=== PATIENT | female | born 1960 | race Caucasian/White ===

== ENCOUNTER 2018-02-02 03:47 | Observation (INO) ==
[2018-02-02 04:14] LABS: ABG Base Excess 1.2 mmol/L (-2.4-2.3); ABG Oxygen Saturation 83 % (90-100); ABG PCO2 42.7 mmhg (35.0-45.0); ABG TCO2 27.3 mmhg (23-27)
[2018-02-02 04:17] LABS: ABG PO2 43.3 mmhg (80-100); Allen's Test Acceptable; Oxygen ROOM AIR %
[2018-02-02 04:30] LABS: Basophils # 0.1 K/mm3 (0-0.2); Basophils % 0.4 % (0.1-2.0); Eosinophils # 0.4 K/mm3 (0.0-0.4); Eosinophils % 1.8 % (0.1-12.0); Hematocrit 47.9 % (37.0-47.0); Hemoglobin 15.1 g/dL (12.2-16.2); Lymphocytes # 2.1 K/mm3 (0.7-4.5); Lymphocytes % 10.4 K/mm3 (10-50); Mean Corpuscular HGB Conc 31.5 g/dL (31.8-35.4); Mean Corpuscular Volume 101.5 fl (81-99); Mean Platelet Volume 7.5 fl (7.4-10.4); Monocytes # 0.8 K/mm3 (0.1-1.0); Monocytes % 3.8 % (1.7-9.3); Neutrophils # 16.4 K/mm3 (1.8-7.8); Neutrophils % 83.5 % (37.0-80.0); Platelet Count 415 K/mm3 (142-424); Red Blood Count 4.72 M/mm3 (4.20-5.40); Red Cell Distribution Width 14.1 % (11.5-17.5); White Blood Count 19.7 K/mm3 (4.8-10.8)
[2018-02-02 04:56] LABS: Lymphocytes % 8 % (10-50); Macrocytosis 2+; Monocytes % 5 % (2-9); Neutrophils % 76 % (42-76); Rouleaux 1+; Total Cells Counted 100
[2018-02-02 05:16] LABS: Alanine Aminotransferase 29 U/L (12-78); Albumin Level 2.8 gm/dL (3.4-5.0); Albumin/Globulin Ratio 0.7 (1.1-1.8); Alkaline Phosphatase 141 U/L (46-116); Anion Gap 8.8 mEq/L (5-15); Aspartate Amino Transferase 17 U/L (15-37); Bilirubin,Total 0.5 mg/dL (0.2-1.0); Blood Urea Nitrogen 10 mg/dL (7-18); Calcium 8.5 mg/dL (8.5-10.1); Carbon Dioxide 29 mmol/L (21.0-32.0); Chloride 101 mmol/L (98-107); Creatine Kinase 42 U/L (26-192); Globulin 4.3 gm/dl (1.3-3.2); Glucose 117 mg/dL (74-106); Potassium 3.8 mmoL/L (3.5-5.1); Sodium 135 mmol/L (136-145); Total Protein,Serum 7.1 gm/dL (6.4-8.2)
--- NOTE | 2018-02-02 05:48 | Emergency Department Note ---
ED Disposition Clinical Impression: Acute exacerbation of chronic obstructive airways disease Community acquired pneumonia Qualifiers: Laterality: left Lung location: lower lobe of lung Qualified Code(s): J18.1 - Lobar pneumonia, unspecified organism Disposition: Admitted as Observation Condition on Discharge: Serious Referrals: Solo Vargas MD [Primary Care Provider] - - Critical Care Critical Care Time: No Attestation: On 02/02/18, the high probability of a clinically significant, sudden or life threatening deterioration of the following system(s) required my full and direct attention, intervention and personal management. The time I documented below is in addition to time spent performing reported procedures but includes the following listed in this critical care notation. Medical Decision Making - Medical Records Medical records reviewed: Yes: I reviewed the patient's medical records. - Nick Inquiry Pt receiving controlled substance: No Vital Signs: 02/02/18 03:49 02/02/18 03:54 02/02/18 04:06 Temperature 100.0 F H 98.7 F Temperature Source Rectal Oral Pulse Rate Pulse Rate [Right Radial] 132 H Respiratory Rate 28 H Blood Pressure [Right Arm] 152/96 Blood Pressure Mean [Right Arm] 114 Blood Pressure Source [Right Arm] Blood Pressure Position [Right Arm] 02 Sat by Pulse Oximetry 88 L 86 L 86 L Oxygen Delivery Method Nasal Cannula Room Air Oxygen Flow Rate (LPM) 2 2 02/02/18 04:15 02/02/18 04:19 02/02/18 04:29 Temperature 100.0 F H Temperature Source Rectal Pulse Rate 108 H 118 H Pulse Rate [Right Radial] Respiratory Rate Blood Pressure [Right Arm] Blood Pressure Mean [Right Arm] Blood Pressure Source [Right Arm] Blood Pressure Position [Right Arm] 02 Sat by Pulse Oximetry Oxygen Delivery Method Oxygen Flow Rate (LPM) 02/02/18 05:00 02/02/18 05:27 Temperature 98.9 F Temperature Source Rectal Pulse Rate Pulse Rate [Right Radial] 106 H 108 H Respiratory Rate 22 22 Blood Pressure [Right Arm] 119/78 136/62 Blood Pressure Mean [Right Arm] 91 86 Blood Pressure Source [Right Arm] Automatic Cuff Automatic Cuff Blood Pressure Position [Right Arm] Sitting Sitting 02 Sat by Pulse Oximetry 97 98 Oxygen Delivery Method Nasal Cannula Nasal Cannula Oxygen Flow Rate (LPM) 3 3 - Lab Data Lab results reviewed: Yes: I reviewed the patient's lab results. Lab Results 02/02/18 04:07: Specimen Source Right radial, O2 % Room air, ABG pH 7.40, ABG pCO2 42.7, ABG pO2 43.3 L, ABG HCO3 26.0, ABG Total CO2 27.3 H, ABG O2 Saturation 83 L*, ABG Base Excess 1.2, [place] Test Acceptable 02/02/18 04:10: WBC 19.7 H, RBC 4.72, Hgb 15.1, Hct 47.9 H, MCV 101.5 H, MCH 32.0 H, MCHC 31.5 L, RDW 14.1, Plt Count 415, MPV 7.5, Neut % (Auto) 83.5 H, Lymph % (Auto) 10.4, [place] % (Auto) 3.8, Eos % (Auto) 1.8, Baso % (Auto) 0.4, Neut # (Auto) 16.4 H, Lymph # (Auto) 2.1, [place] # (Auto) 0.8, Eos # (Auto) 0.4, Baso # (Auto) 0.1, Total Counted 100, Neutrophils % (Manual) 76, Band [place] trophils % 11.0 H, Lymphocytes % (Manual) 8 L, Monocytes % (Manual) 5, Platelet Estimate Normal, Macrocytosis 2+, Rouleaux 1+ 02/02/18 04:10: Lactate 1.2 02/02/18 04:10: Influenza Type A Ag Negative, Influenza Type B Ag Negative 02/02/18 04:40: Sodium 135 L, Potassium 3.8, Chloride 101, Carbon Dioxide 29, Anion Gap 8.8, BUN 10, Creatinine 0.67, Estimated Creat Clear 60, Estimated GFR 91, Est GFR ( Amer) 110, Glucose 117 H, Calcium 8.5, Total Bilirubin 0.5, AST 17, ALT 29, Alkaline Phosphatase 141 H, Total Creatine Kinase 42, CK-MB (CK- 2) < 0.5, CK-MB (CK-2) Rel Index 1.2, Troponin I < 0.02, Total Protein 7.1, A lbumin 2.8 L, Globulin 4.3 H, Albumin/Globulin Ratio 0.7 L Result diagrams: 02/02/18 04:10 02/02/18 04:40 Orders (Tests/Meds): ED MEDICATIONS Generic Name Dose Route Start Last Admin Trade Name Freq PRN Reason Stop Dose Admin Sodium Chloride 3 ml 02/02/18 04:00 Sodium Chloride 3% 15ml [facility] 03/04/18 03:59 ONCE PRN INDUCE SPUTUM COLLECTION Discontinued Medications Generic Name Dose Route Start Last Admin Trade Name Freq PRN Reason Stop Dose Admin Albuterol/Ipratropium 3 ml 02/02/18 04:00 02/02/18 04:18 Duoneb 3ml [facility] 02/02/18 04:01 3 ml ONCE ONE Administration Sodium Chloride 1,000 mls @ 999 mls/hr 02/02/18 04:30 02/02/18 04:25 Sod Chlor 0.9% 1000ml Bag IV 02/02/18 05:30 999 mls/hr .Q1H1M PRAVIN Administration Ibuprofen 600 mg 02/02/18 04:24 02/02/18 04:25 Motrin 600mg Tablet PO 02/02/18 04:25 600 mg ONCE ONE Administration Methylprednisolone Sodium Succinate 125 mg 02/02/18 04:00 02/02/18 04:15 Solu-Medrol 125mg/2ml Vial IV 02/02/18 04:01 125 mg ONCE ONE Administration ORDERS Category Date Time Status XR chest portable Stat Exams 02/02/18 03:59 Taken Blood Culture Stat Micro 02/02/18 04:07 Ordered Sputum Culture & Gram Stain Stat Micro 02/02/18 04:00 Ordered Arterial Blood Gas Stat RT 02/02/18 04:07 Ordered - Radiology Data #1 Image(s): Chest Image Reviewed: Yes I reviewed the patient's radiology image Preliminary Findings: Abnormal (copd and changes lt base ) - ECG Data Tracing #1 I reviewed this ECG and interpreted as documented below: Arrhythmias present: sinus tach Ischemic changes: non-specific ST-T wave changes ECG compared to prior tracings: there are no significant changes - Physician Consults Physician Consulted: júnior Reason -: Admission Resp/SOB HPI - General Chief Complaint: Shortness of Breath/Dyspnea Stated Complaint: COPD, DIfficulty Breathing Time Seen by Provider: 02/02/18 05:00 Mode of Arrival: Family Vehicle Source of Information: Patient, Spouse, Medical Record Limitations: No Limitations Description of Symptoms (Recalled from ER Triage Doc. by RN): pt states she has had a cold for approx 2 weeks. pt states she has copd and is on home o2 at night at 2 lbnc. pt presents tonight c/o severe shortness of breath. pt states she has been running a fever at home. - History of Present Illness wf with progressive sob with hx of copd and has fever and prod sputum and presents with inc sx - reports has had this over the last week - no hemoptysis - MD Complaint: shortness of breath Onset (ago): day(s) Severity: moderate Known history of: COPD Associated symptoms: denies other symptoms Treatment prior to arrival: oxygen - Related Data Home oxygen amount: 2 liters Home Medications Medication Instructions Recorded Confirmed Albuterol Sulfate [Albuterol HFA 1 - 2 puffs IH Q4-6H PRN 02/02/18 02/02/18 Inhaler] Budesonide/Formoterol Fumarate 10.2 gm IH DAILY 02/02/18 02/02/18 [Symbicort 160-4.5 Mcg Inhaler] Cetirizine HCl [Zyrtec] 10 mg PO DAILY 02/02/18 02/02/18 Meloxicam 15 mg PO DAILY 02/02/18 02/02/18 Montelukast Sodium [Montelukast 10 mg PO DAILY 02/02/18 02/02/18 10mg Tab] Omeprazole [Omeprazole 20mg 20 mg PO DAILY 02/02/18 02/02/18 Capsule] Allergies Allergy/AdvReac Type Severity Reaction Status Date / Time erythromycin base Allergy Intermediate I-RASH Verified 02/02/18 03:59 [ERYTHROMYCIN BASE] [facility] History I have reviewed the patient's past medical history: Yes Medical History: Denies:: Cancer, Diabetes Mellitus Type 1, Diabetes Mellitus Type 2, MRSA Amputation: No Fractures: No - Social History Smoking Status: Current every day smoker Alcohol Intake: never - Psychiatric History Expresses thoughts of harming self/others: None Suicide Plan Description: No Plan ROS Obtained: Yes All systems reviewed & no additional complaints - Constitutional Constitutional: Reports fever(s), Reports weakness - Eyes Eyes: Denies change in vision - ENT Ears, Nose, Mouth, and Throat: Denies sore throat - Cardiovascular Cardiovascular: Denies chest pain, Reports dyspnea - Respiratory Respiratory: Yes as per HPI, Yes cough, Yes dyspnea, No coughing up blood - Gastrointestinal Gastrointestingal: Denies: abdominal pain - Genitourinary Female Genitourinary: Denies hematuria - Musculoskeletal Musculoskeletal: Denies joint pain, Denies joint swelling - Integumentary/Breasts Skin/Breast: Denies rash - Neurologic Neurologic: Denies seizure-like activity Physical Exam - General General appearance: alert, in no apparent distress, cachectic, other (leaning forward - tripod position ) - Head Head exam: atraumatic - Eye Eye exam: Present: PERRL, EOMI. Absent: scleral icterus - ENT ENT exam: Present: mucous membranes dry - Neck Neck exam: Present: trachea midline - Respiratory Respiratory exam: Present: wheezes, other (dec bs bilat ). Absent: respiratory distress - Cardiovascular Cardiovascular exam: Present: regular rate, systolic murmur, +S4 - Abdominal Exam Abdominal exam: Present: soft - Extremities Exam Extremities exam: Absent: calf tenderness - Neurological Exam Neurological exam: Present: alert, oriented X3, CN II-XII intact - Psychiatric Psychiatric exam: Present: normal affect - Skin Skin exam: Absent: rash
--- NOTE | 2018-02-02 07:51 | History & Physical Report ---
*Admission Date: 02/01/18 *Chief complaint: Worsening shortness of breath and productive cough *History of present illness: 57-year-old female with history of COPD on 2 L oxygen at baseline who presents with worsening cough, congestion, fevers over the past 2 weeks. He presented last night to the ER due to severe worsening of shortness of breath, increased sputum production, and subjective fever at home. States when she gets like that she has to come in and get antibiotics. Has hemoptysis, syncope, chest pain, palpitations, nausea or vomiting. Cup in the emergency room significant for leukocytosis, tachycardia, chest x-ray with concern for left lower lobe infiltrate. [facility] History I have reviewed the patient's past medical history: Yes Medical History: Reports:: Palpitations Denies:: Cancer, Diabetes Mellitus Type 1, Diabetes Mellitus Type 2, MRSA Other Surgeries: Yes: Hysterectomy-Total, Splenectomy (X2) Amputation: No Fractures: No - *Social History Educational Level: Attended High School Smoking Status: Current every day smoker Tobacco Type: cigarettes # Packs/Day (cigarettes): 1 #Yrs smoked (if former smoker): 45 Alcohol Intake: never Occupational Status: employed Housing: house Household Members: spouse, family - Psychiatric History Expresses thoughts of harming self/others: None Suicide Plan Description: No Plan *Family Hx:: Anemia, Cancer, Hyperlipidemia, Hypertension Review of Systems - Review of Systems Review of systems:: pertinent systems reviewed and negative unless documented below - *Neurologic Reports weakness, Denies seizure-like activity Meds Home Medications Medication Instructions Recorded Confirmed Type Albuterol Sulfate [Albuterol HFA 1 - 2 puffs IH Q4-6H PRN 02/02/18 02/02/18 History Inhaler] Cetirizine HCl [Zyrtec] 10 mg PO DAILY 02/02/18 02/02/18 History Meloxicam 15 mg PO DAILY 02/02/18 02/02/18 History Montelukast Sodium [Montelukast 10 mg PO HS 02/02/18 02/02/18 History 10mg Tab] Omeprazole [Omeprazole 20mg 20 mg PO DAILY 02/02/18 02/02/18 History Capsule] Tiotropium Br/Olodaterol HCl 2 inh IH DAILY 02/02/18 02/02/18 History [Stiolto Respimat Inhal [place]] Allergies Allergy/AdvReac Type Severity Reaction Status Date / Time erythromycin base Allergy Intermediate I-RASH Verified 02/02/18 03:59 [ERYTHROMYCIN BASE] Exam Vital signs and Labs for Last 24 Hours: Temp Pulse Resp BP Pulse Ox 98.4 F 115 H 22 140/80 85 L 02/02/18 06:31 02/02/18 06:31 02/02/18 06:31 02/02/18 06:31 02/02/18 06:31 Laboratory Results - last 24 hr 02/02/18 04:07: Specimen Source Right radial, O2 % Room air, ABG pH 7.40, ABG pCO2 42.7, ABG pO2 43.3 L, ABG HCO3 26.0, ABG Total CO2 27.3 H, ABG O2 Saturation 83 L*, ABG Base Excess 1.2, [place] Test Acceptable 02/02/18 04:10: WBC 19.7 H, RBC 4.72, Hgb 15.1, Hct 47.9 H, MCV 101.5 H, MCH 32.0 H, MCHC 31.5 L, RDW 14.1, Plt Count 415, MPV 7.5, Neut % (Auto) 83.5 H, Lymph % (Auto) 10.4, [place] % (Auto) 3.8, Eos % (Auto) 1.8, Baso % (Auto) 0.4, Neut # (Auto) 16.4 H, Lymph # (Auto) 2.1, [place] # (Auto) 0.8, Eos # (Auto) 0.4, Baso # (Auto) 0.1, Total Counted 100, Neutrophils % (Manual) 76, Band Neutrophils % 11.0 H, Lymphocytes % (Manual) 8 L, Monocytes % (Manual) 5, Platelet Estimate Normal, Macrocytosis 2+, Rouleaux 1+ 02/02/18 04:10: Lactate 1.2 02/02/18 04:10: Influenza Type A Ag Negative, Influenza Type B Ag Negative 02/02/18 04:40: Sodium 135 L, Potassium 3.8, Chloride 101, Carbon Dioxide 29, Anion Gap 8.8, BUN 10, Creatinine 0.67, Estimated Creat Clear 60, Estimated GFR 91, Est GFR ( Amer) 110, Glucose 117 H, Calcium 8.5, Total Bilirubin 0.5, AST 17, ALT 29, Alkaline Phosphatase 141 H, Total Creatine Kinase 42, CK-MB (CK- 2) < 0.5, CK-MB (CK-2) Rel Index 1.2, Troponin I < 0.02, Total Protein 7.1, Albumin 2.8 L, Globulin 4.3 H, Albumin/Globulin Ratio 0.7 L I & O for Last 24 hours: Intake & Output 01/30/18 01/31/18 02/01/18 02/02/18 23:59 23:59 23:59 23:59 Intake Total 1000 / 1000 Balance 1000 / 1000 Weight 41.759 kg Microbiology Reports for the Last 24 Hours: Microbiology 02/02/18 04:00 Sputum - Expectorated Sputum Gram Stain - Final - Constitutional mild distress, cachectic - *Routine HEENT Exam Head: Present: atraumatic Eye: Present: EOMI, PERRL ENT: Present: mucous membranes moist Comments: Bitemporal wasting - *Routine Neck Exam Present: supple, full ROM. Absent: JVD, lymphadenopathy - Routine Chest/Breast/Axilla Exam Comments: Barrel chested - *Routine Respiratory Exam Present: accessory muscle use, prolonged expiratory phase, wheezes, crackles (Left lower lobe), diminished air movement. Absent: CTA bilaterally - *Routine Cardiovascular Exam Present: RRR, Normal S1, Normal S2. Absent: murmur - *Routine Abdominal Exam Present: soft, normoactive bowel sounds. Absent: tenderness - *Routine Rectal Exam Patient deferred: visual exam - *Routine Exam Patient deferred: external exam - *Routine Extremities Exam Absent: cyanosis, clubbing, edema - *Routine Skin Exam Present: intact. Absent: cyanosis, erythema - *Routine Neurological Exam Present: alert, oriented X3, CN II-XII intact Assessment and Plan (1) Sepsis Current visit: Yes Status: Acute Qualifiers: Sepsis type: sepsis due to unspecified organism Qualified Code(s): A41.9 - Sepsis, unspecified organism Category: Medical Code(s): A41.9 - Sepsis, unspecified organism Sepsis criteria with tachycardia greater than 90 bpm, leukocytosis, suspected source with left lower lobe pneumonia. -She had on antibiotics per sepsis protocol -No signs of tissue hypoperfusion or shock at this time (2) Acute exacerbation of chronic obstructive airways disease Current visit: Yes Status: Acute Category: Medical Code(s): J44.1 - Chronic obstructive pulmonary disease with (acute) exacerbation Continue Levaquin -Continue steroid -Continue nebulizers as ordered -Supplemental oxygen, wean as tolerated to goal of 92% while awake, 88% while asleep (3) Community acquired pneumonia Current visit: Yes Status: Acute Qualifiers: Laterality: left Lung location: lower lobe of lung Qualified Code(s): J18.1 - Lobar pneumonia, unspecified organism Category: Medical Code(s): J18.9 - Pneumonia, unspecified organism Given clinical exam findings, chest x-ray findings, respiratory distress, m anagement per above - Assessment and plan all Dx Assessment and Plan for all problems:: Due to acute hypoxemic respiratory failure in the setting of COPD exacerbation versus community-acquired pneumonia with criteria met for sepsis, patient requires inpatient management.
--- NOTE | 2018-02-02 11:41 | Pharmacy Consult Notes ---
[facility] Pharmacy VTE Monitoring - Patient Demographics Admission date: 02/02/18 Report Date: 02/02/18 Time: 11:41 Allergies/Adverse Reactions: Patient Allergies erythromycin base [ERYTHROMYCIN BASE] Allergy (Intermediate, Verified 02/02/18 03:59) I-RASH Height: 1.57 m Weight: 41.759 kg Patient Problems: Current Active Problems Community acquired pneumonia (Acute) Acute exacerbation of chronic obstructive airways disease (Acute) - VTE Risk Labs: VTE Related Lab Results Hgb 15.1 g/dL (12.2-16.2) 02/02/18 04:10 Hct 47.9 % (37.0-47.0) H 02/02/18 04:10 Plt Count 415 K/mm3 (142-424) 02/02/18 04:10 BUN 10 mg/dL (7-18) 02/02/18 04:40 Creatinine 0.67 mg/dL (0.55-1.02) 02/02/18 04:40 Estimated Creat Clear 60 mL/min (0-300) 02/02/18 04:40 VTE Score: 4 VTE Risk Level: Low Risk - Prophylaxis Types of VTE Prophylaxis: TEDS Knee High Location of Applied Device: Bilateral Lower Extremeties (CJ HOSE ORDERED)
--- NOTE | 2018-02-03 09:53 | Discharge Summary ---
General - General Admission date:: 02/02/18 Discharge date: 02/03/18 HPI HPI: 57-year-old female with history of COPD on 2 L oxygen at baseline who presents with worsening cough, congestion, fevers over the past 2 weeks. He presented last night to the ER due to severe worsening of shortness of breath, increased sputum production, and subjective fever at home. States when she gets like that she has to come in and get antibiotics. Has hemoptysis, syncope, chest pain, palpitations, nausea or vomiting. Cup in the emergency room significant for leukocytosis, tachycardia, chest x-ray with concern for left lower lobe infiltrate. Hospital Course Hospital Course: Initial presentation concerning for sepsis due to COPD exacerbation and respiratory infection. Initiated on Levaquin and steroids and supplemental oxygen. Defervesced during admission, stable at baseline oxygen. Remained afebrile. Transition to oral steroids and Levaquin. Tolerated regular diet. Medically stable for discharge home. Continue treatment for total of 7 days of Levaquin and 5 days of steroids. Objective Vital signs: Temp Pulse Resp BP Pulse Ox 97.7 F 98 H 20 112/66 90 L 02/03/18 07:59 02/03/18 07:59 02/03/18 07:59 02/03/18 07:59 02/03/18 08:10 - *Routine HEENT Exam Comments: Thin face, bitemporal wasting, nasal cannula in place - *Routine Neck Exam Present: supple, full ROM. Absent: JVD, lymphadenopathy - *Routine Respiratory Exam Present: accessory muscle use, CTA bilaterally, prolonged expiratory phase. Absent: rales, wheezes, crackles - *Routine Cardiovascular Exam Present: RRR, Normal S1, Normal S2. Absent: murmur - *Routine Abdominal Exam Present: soft, normoactive bowel sounds - *Routine Rectal Exam Patient deferred: visual exam - *Routine Exam Patient deferred: external exam - *Routine Extremities Exam Present: cyanosis - *Routine Skin Exam Present: intact. Absent: cyanosis, erythema - *Routine Neurological Exam Present: alert, oriented X3, CN II-XII intact. Absent: altered mental status Results Labs on day of discharge: Labs from last 24 hours 02/03/18 02/02/18 05:50 12:40 Magnesium 1.8 Troponin I < 0.02 Preliminary micro results at discharge 02/02/18 04:00 Sputum Culture - Preliminary Sputum - Expectorated Sputum Gram Positive Cocci DS: Diagnosis - Discharge Diagnosis (1) Sepsis Status: Acute (2) Acute exacerbation of chronic obstructive airways disease Status: Acute (3) Community acquired pneumonia Status: Acute Discharge Plan - Patient Discharge Instructions ACTIVITY: Ambulate as tolerated DIET: continue same diet - Follow up Plan Follow up with: Sloo Vargas MD [Primary Care Provider] - 2 weeks (Within 1-2 weeks) Disposition: Home, Self-Half-Way Medications: Home Medications Medication Instructions Recorded Confirmed Type Albuterol Sulfate [Albuterol HFA 1 - 2 puffs IH Q4-6H PRN 02/02/18 02/02/18 History Inhaler] Cetirizine HCl [Zyrtec] 10 mg PO DAILY 02/02/18 02/02/18 History Meloxicam 15 mg PO DAILY 02/02/18 02/02/18 History Montelukast Sodium [Montelukast 10 mg PO HS 02/02/18 02/02/18 History 10mg Tab] Omeprazole [Omeprazole 20mg 20 mg PO DAILY 02/02/18 02/02/18 History Capsule] Tiotropium Br/Olodaterol HCl 2 inh IH DAILY 02/02/18 02/02/18 History [Stiolto Respimat Inhal [place]] Prescriptions/Medication Reconciliation: New Acetaminophen [Acetaminophen 325mg tab] 650 mg PO Q4HP PRN tablet PRN Reason: As Needed For Fever Or Pain levoFLOXacin [Levaquin 750mg tablet] 750 mg PO 1100 5 Days #5 tablet predniSONE [Deltasone 20mg tablet] 40 mg PO DAILY 3 Days #6 tablet Continue Cetirizine HCl [Zyrtec] 10 mg PO DAILY Montelukast Sodium [Montelukast 10mg Tab] 10 mg PO HS Albuterol Sulfate [Albuterol HFA Inhaler] 1 - 2 puffs IH Q4-6H PRN PRN Reason: Shortness Of Breath Or Wheezing Omeprazole [Omeprazole 20mg Capsule] 20 mg PO DAILY Meloxicam 15 mg PO DAILY Tiotropium Br/Olodaterol HCl [Stiolto Respimat Inhal [place]] 2 inh IH DAILY
== END 2018-02-03 11:25 | disposition home or self-care (01) ==
LOC: 2ND 03:47 → ER 03:47 → OBSVTOIN 06:15 → INTOOBSV 06:15 → 2ND 06:20
PROVIDERS: ADMIT Internal Medicine Adolescent Medicine; ATTEND Internal Medicine Adolescent Medicine

== ENCOUNTER 2018-05-17 23:56 | Inpatient (IN) ==
[2018-05-18 00:12] LABS: ABG Base Excess -5.7 mmol/L (-2.4-2.3); ABG HCO3 19.7 mmhg (22.0-26.0); ABG Oxygen Saturation 90 % (90-100); ABG PCO2 35.5 mmhg (35.0-45.0); ABG PH 7.36 mmol/L (7.35-7.45); ABG PO2 56.3 mmhg (80-100); ABG TCO2 20.8 mmhg (23-27)
[2018-05-18 00:13] LABS: Allen's Test Acceptable
[2018-05-18 00:33] LABS: Basophils # 0.1 K/mm3 (0-0.2); Basophils % 0.3 % (0.1-2.0); Eosinophils # 0.3 K/mm3 (0.0-0.4); Eosinophils % 1.2 % (0.1-12.0); Hematocrit 53.9 % (37.0-47.0); Hemoglobin 16.7 g/dL (12.2-16.2); Lymphocytes # 1.9 K/mm3 (0.7-4.5); Lymphocytes % 8.5 % (10-50); Mean Platelet Volume 8.2 fl (7.4-10.4); Monocytes # 1.1 K/mm3 (0.1-1.0); Monocytes % 4.7 % (1.7-9.3); Neutrophils # 19.1 K/mm3 (1.8-7.8); Neutrophils % 85.3 % (37.0-80.0); Platelet Count 409 K/mm3 (142-424); Red Blood Count 5.23 M/mm3 (4.20-5.40); Red Cell Distribution Width 13.3 % (11.5-17.5)
[2018-05-18 00:38] LABS: White Blood Count 22.4 K/mm3 (4.8-10.8)
[2018-05-18 00:49] LABS: Alanine Aminotransferase 22 U/L (12-78); Albumin Level 3.3 gm/dL (3.4-5.0); Albumin/Globulin Ratio 0.7 (1.1-1.8); Alkaline Phosphatase 175 U/L (46-116); Anion Gap 14.9 mEq/L (5-15); Aspartate Amino Transferase 9 U/L (15-37); Bilirubin,Total 0.6 mg/dL (0.2-1.0); Blood Urea Nitrogen 8 mg/dL (7-18); Calcium 9.1 mg/dL (8.5-10.1); Carbon Dioxide 27 mmol/L (21.0-32.0); Chloride 101 mmol/L (98-107); Globulin 4.9 gm/dl (1.3-3.2); Glucose 120 mg/dL (74-106); Potassium 3.9 mmoL/L (3.5-5.1); Sodium 139 mmol/L (136-145); Total Protein,Serum 8.2 gm/dL (6.4-8.2)
[2018-05-18 00:50] LABS: Eosinophils % 1 % (0-3); Lymphocytes % 9 % (10-50); Monocytes % 2 % (2-9); Neutrophils % 80 % (42-76); Total Cells Counted 100
[2018-05-18 00:51] LABS: Hypochromasia 1+; Macrocytosis 2+
--- NOTE | 2018-05-18 01:49 | Emergency Department Note ---
ED Disposition Clinical Impression: Acute exacerbation of chronic obstructive airways disease Community acquired pneumonia Qualifiers: Laterality: unspecified laterality Qualified Code(s): J18.9 - Pneumonia, unspecified organism Disposition: Admitted As Inpatient Condition on Discharge: Good Referrals: Solo Vargas MD [Primary Care Provider] - - Critical Care Critical Care Time: No Attestation: On 05/17/18, the high probability of a clinically significant, sudden or life threatening deterioration of the following system(s) required my full and direct attention, intervention and personal management. The time I documented below is in addition to time spent performing reported procedures but includes the following listed in this critical care notation. Medical Decision Making - Medical Records Medical records reviewed: Yes: I reviewed the patient's medical records. - Nick Inquiry Pt receiving controlled substance: No Vital Signs: 05/17/18 23:57 05/18/18 01:25 Temperature 98.8 F Temperature Source Temporal Artery Scan Pulse Rate [Right Brachial] 114 H 111 H Respiratory Rate 24 22 Blood Pressure [Right Arm] 140/56 L 108/65 L Blood Pressure Mean [Right Arm] 84 79 Blood Pressure Source [Right Arm] Automatic Cuff Blood Pressure Position [Right Arm] Supine 02 Sat by Pulse Oximetry 85 L 90 L Oxygen Delivery Method Room Air Nasal Cannula Oxygen Flow Rate (LPM) 2 - Lab Data Lab results reviewed: Yes: I reviewed the patient's lab results. Lab Results 05/18/18 00:09: Specimen Source Right radial, O2 % 28%, 2 lpm nc, ABG pH 7.36, ABG pCO2 35.5, ABG pO2 56.3 L, ABG HCO3 19.7 L, ABG Total CO2 20.8 L, ABG O2 Saturation 90, ABG Base Excess -5.7 L, [place] Test Acceptable 05/18/18 00:20: WBC 22.4 H*, RBC 5.23, Hgb 16.7 H, Hct 53.9 H, MCV 103.0 H, MCH 32.0 H, MCHC 31.0 L, RDW 13.3, Plt Count 409, MPV 8.2, Neut % (Auto) 85.3 H, Lymph % (Auto) 8.5 L, [place] % (Auto) 4.7, Eos % (Auto) 1.2, Baso % (Auto) 0.3, Neut # (Auto) 19.1 H, Lymph # (Auto) 1.9, [place] # (Auto) 1.1 H, Eos # (Auto) 0.3, Baso # (Auto) 0.1, Total Counted 100, Neutrophils % (Manual) 80 H, Band Neutrophils % 8.0, Lymphocytes % (Manual) 9 L, Monocytes % (Manual) 2, Eosinophils % (Manual) 1, Platelet Estimate Normal, Hypochromasia 1+, Macrocytosis 2+ 05/18/18 00:20: Sodium 139, Potassium 3.9, Chloride 101, Carbon Dioxide 27, Anion Gap 14.9, BUN 8, Creatinine 0.66, Estimated Creat Clear 60, Estimated GFR 92, Est GFR ( Amer) 111, Glucose 120 H, Calcium 9.1, Total Bilirubin 0.6, AST 9 L, ALT 22, Alkaline Phosphatase 175 H, Troponin I < 0.02, Total Protein 8.2, Albumin 3.3 L, Globulin 4.9 H, Albumin/Globulin Ratio 0.7 L 05/18/18 00:20: Lactate 1.7 Result diagrams: 05/18/18 00:20 05/18/18 00:20 Orders (Tests/Meds): ED MEDICATIONS Generic Name Dose Route Start Last Admin Trade Name Freq PRN Reason Stop Dose Admin Levofloxacin/Dextrose 500 mg in 100 mls @ 100 mls/hr 05/18/18 02:00 Levaquin 500mg/100ml Premix IV 06/01/18 01:59 Q24H PRAVIN Protocol Discontinued Medications Generic Name Dose Route Start Last Admin Trade Name Freq PRN Reason Stop Dose Admin Ketorolac Tromethamine 30 mg 05/18/18 01:50 Toradol 30mg/Ml Vial IV 05/18/18 01:51 ONCE ONE Methylprednisolone Sodium Succinate 125 mg 05/18/18 01:49 Solu-Medrol 125mg/2ml Vial IV 05/18/18 01:50 ONCE ONE ORDERS Category Date Time Status Blood Culture Stat Micro 05/18/18 00:20 Received ECG Request by /Nse Stat Y 05/18/18 00:11 Ordered - Radiology Data #1 Image(s): Chest Image Reviewed: Yes I reviewed the patient's radiology image Preliminary Findings: Abnormal (copd/cap) - ECG Data Tracing #1 Normal Sinus Rhythm: Yes Ischemic changes: non-specific ST-T wave changes - Physician Consults Physician Consulted: lavon Reason -: Admission Resp/SOB HPI - General Chief Complaint: Shortness of Breath/Dyspnea Stated Complaint: back pain, NV, SOA Time Seen by Provider: 05/18/18 00:00 Mode of Arrival: EMS Source of Information: Patient, Spouse, EMS, Medical Record Limitations: Physical Limitations Description of Symptoms (Recalled from ER Triage Doc. by RN): back pain, NV, SOA today - History of Present Illness wf with progressive sob over the last few days with last admit about 2 months ago - uses o2 at home - no hemoptysis - no vomiting Complaint: shortness of breath, cough, pain with inspiration Onset (ago): day(s) Severity: moderate Consistency/Duration: intermittent Known history of: COPD Associated symptoms: denies other symptoms Treatment prior to arrival: oxygen, bronchodilator - Related Data Home oxygen amount: 2 liters Home Medications Medication Instructions Recorded Confirmed Albuterol Sulfate [Albuterol HFA 1 - 2 puffs IH Q4-6H PRN 02/02/18 05/18/18 Inhaler] Cetirizine HCl [Zyrtec] 10 mg PO DAILY 02/02/18 05/18/18 Meloxicam 15 mg PO DAILY 02/02/18 05/18/18 Montelukast Sodium [Montelukast 10 mg PO HS 02/02/18 05/18/18 10mg Tab] Omeprazole [Omeprazole 20mg 20 mg PO DAILY 02/02/18 05/18/18 Capsule] Tiotropium Br/Olodaterol HCl 2 inh IH DAILY 02/02/18 05/18/18 [Stiolto Respimat Inhal [place]] Previous Rx's Medication Instructions Recorded Acetaminophen [Acetaminophen 325mg 650 mg PO Q4HP PRN tablet 02/03/18 tab] Allergies Allergy/AdvReac Type Severity Reaction Status Date / Time erythromycin base Allergy Intermediate I-RASH Verified 02/02/18 03:59 [ERYTHROMYCIN BASE] [facility] History - Hepatitis A Screen Drug use history?: No High risk sexual behaviors?: No History of sexually transmitted infection?: No Currently employed?: No Childcare worker?: No Do you have indoor plumbing?: Yes Do you have electricity?: Yes Attestation statement:: This patient has been screened for Hepatitis A risk factors. I have reviewed the patient's past medical history: Yes Medical History: Reports:: Palpitations Denies:: Cancer, Diabetes Mellitus Type 1, Diabetes Mellitus Type 2, MRSA Other Surgeries: Yes: Hysterectomy-Total, Splenectomy (X2) Amputation: No Fractures: No - Social History Smoking Status: Former smoker Tobacco Type: cigarettes # Packs/Day (cigarettes): 1 #Yrs smoked (if former smoker): 45 Alcohol Intake: never Occupational Status: employed Housing: house Household Members: spouse, family - Psychiatric History Expresses thoughts of harming self/others: None Suicide Plan Description: No Plan Family Hx:: Anemia, Cancer, Hyperlipidemia, Hypertension ROS Obtained: Yes All systems reviewed & no additional complaints - Constitutional Constitutional: Denies fever(s) - Eyes Eyes: Denies change in vision - ENT Ears, Nose, Mouth, and Throat: Denies sore throat - Cardiovascular Cardiovascular: Denies dyspnea, Denies palpitations - Respiratory Respiratory: Yes as per HPI, Yes change in phlegm color, Yes cough, No coughing up blood - Gastrointestinal Gastrointestingal: Denies: abdominal pain, nausea, vomiting - Genitourinary Female Genitourinary: Denies flank pain, Denies hematuria - Musculoskeletal Musculoskeletal: Denies joint pain - Integumentary/Breasts Skin/Breast: Denies rash - Neurologic Neurologic: Denies seizure-like activity Physical Exam - General General appearance: alert, in no apparent distress - Head Head exam: normocephalic - Eye Eye exam: Present: PERRL, EOMI - ENT ENT exam: Present: mucous membranes dry - Neck Neck exam: Absent: trachea midline - Respiratory Respiratory exam: Present: wheezes, other (rhonchi). Absent: respiratory distress - Cardiovascular Cardiovascular exam: Present: regular rate, systolic murmur. Absent: rubs - Abdominal Exam Abdominal exam: Present: soft. Absent: tenderness - Extremities Exam Extremities exam: Absent: calf tenderness - Back Exam Back exam: Absent: CVA tenderness (R) - Neurological Exam Neurological exam: Present: alert, oriented X3, CN II-XII intact - Psychiatric Psychiatric exam: Present: normal affect - Skin Skin exam: Absent: rash
[2018-05-18 06:06] LABS: Basophils % 0.2 % (0.1-2.0); Eosinophils # 0.1 K/mm3 (0.0-0.4); Eosinophils % 0.5 % (0.1-12.0); Hematocrit 47.3 % (37.0-47.0); Lymphocytes # 0.7 K/mm3 (0.7-4.5); Lymphocytes % 3.1 % (10-50); Mean Corpuscular HGB Conc 30.4 g/dL (31.8-35.4); Mean Corpuscular Hemoglobin 31.6 pg (27.0-31.2); Mean Corpuscular Volume 103.7 fl (81-99); Mean Platelet Volume 8.4 fl (7.4-10.4); Monocytes # 0.3 K/mm3 (0.1-1.0); Monocytes % 1.1 % (1.7-9.3); Neutrophils # 22.5 K/mm3 (1.8-7.8); Neutrophils % 95.2 % (37.0-80.0); Platelet Count 399 K/mm3 (142-424); Red Blood Count 4.56 M/mm3 (4.20-5.40); Red Cell Distribution Width 13.4 % (11.5-17.5)
[2018-05-18 06:07] LABS: Hemoglobin 14.4 g/dL (12.2-16.2); White Blood Count 23.7 K/mm3 (4.8-10.8)
[2018-05-18 06:21] LABS: Anion Gap 12.6 mEq/L (5-15); Blood Urea Nitrogen 8 mg/dL (7-18); Calcium 8.6 mg/dL (8.5-10.1); Carbon Dioxide 26 mmol/L (21.0-32.0); Chloride 101 mmol/L (98-107); Glucose 126 mg/dL (74-106); Sodium 135 mmol/L (136-145)
[2018-05-18 06:25] LABS: Potassium 4.6 mmoL/L (3.5-5.1)
--- NOTE | 2018-05-18 08:06 | History & Physical Report ---
*Admission Date: 05/18/18 *Chief complaint: Shortness of air *History of present illness: 58-year-old white female with severe, oxygen requiring COPD and chronic pulmonary cachexia with severe protein calorie malnutrition who presented to the emergency department with 2-3 weeks of worsening dyspnea. She has baseline dyspnea that she reports has been present since March, but has been unable to get to the office because of transportation difficulties. Came to the emergency department where she was found to have significant leukocytosis, evidence of COPD exacerbation on examination and admitted to hospital for IV antibiotics and steroids. She reports this morning after 1 night of IV fluids and oxygen she feels somewhat better. [facility] History I have reviewed the patient's past medical history: Yes Medical History: Reports:: Chronic Obstructive Pulmonary Disease (COPD), Palpitations Denies:: Cancer, Diabetes Mellitus Type 1, Diabetes Mellitus Type 2, MRSA Other Medical History: Reports: Anemia, Sinus Problems Laterality Cases: Right: Other Other Surgeries: Yes: Colonoscopy, Hysterectomy-Total, Splenectomy (X2), Tubal Ligation Amputation: No Fractures: No - *Social History Educational Level: Attended High School Smoking Status: Former smoker Tobacco Type: cigarettes # Packs/Day (cigarettes): 1 #Yrs smoked (if former smoker): 40 Alcohol Intake: never Occupational Status: employed Housing: house Household Members: spouse, family - Psychiatric History Expresses thoughts of harming self/others: None Suicide Plan Description: No Plan *Family Hx:: Anemia, Cancer, Hyperlipidemia, Hypertension Review of Systems - Review of Systems Review of systems:: pertinent systems reviewed and negative unless documented below - Constitutional Reports anorexia, Reports body ache(s), Reports chills - Eyes Denies blurry vision, Denies change in vision - ENT Denies abnormal hearing, Denies bleeding gums, Denies change in voice - *Cardiovascular Reports shortness of breath, Reports shortness of breath with activity, Denies chest pain, Denies chest pain at rest, Denies chest pain with activity, Denies excessive sweating, Denies generalized swelling, Denies irregular heart rhythm, Denies leg swelling - *Respiratory Reports change in phlegm color, Reports chest congestion, Reports cough, Reports shortness of breath, Reports excessive phlegm production, Denies coughing up blood, Denies pain on inspiration - *Gastrointestinal Denies abdominal pain, Denies belching, Denies bloating, Denies coffee ground vomit - *Musculoskeletal Denies abnormal walking, Denies joint pain, Denies decreased muscle mass - Integumentary/Breasts Denies hair loss, Denies bleeding lesions - *Neurologic Reports headache(s) (Severe headache, taking over 5 g of Tylenol daily), Denies abnormal walking, Denies seizure-like activity - Endocrine Denies cold intolerance, Denies excessive sweating - Hematologic/Lymphatic Denies easy bleeding, Denies easy bruising - Allergic/Immunologic Denies GI upset with certain foods, Denies itchy eyes Meds Home Medications Medication Instructions Recorded Confirmed Type Albuterol Sulfate [Albuterol HFA 1 - 2 puffs IH Q4-6H PRN 02/02/18 05/18/18 History Inhaler] Montelukast Sodium [Montelukast 10 mg PO DAILY 02/02/18 05/18/18 History 10mg Tab] Tiotropium Br/Olodaterol HCl 2 inh IH DAILY 02/02/18 05/18/18 History [Stiolto Respimat Inhal [place]] Acetaminophen [Tylenol 500mg 500 mg PO Q4HP PRN 05/18/18 05/18/18 History tablet] Albuterol Sulfate [Albuterol 2.5 mg IH Q4-6H 05/18/18 05/18/18 History 0.083% 2.5mg/3mL neb] Fluticasone Propionate [Flonase 1 spr NS DAILY 05/18/18 05/18/18 History 50mcg nasal spray 16gm] Allergies Allergy/AdvReac Type Severity Reaction Status Date / Time erythromycin base Allergy Intermediate I-RASH Verified 02/02/18 03:59 [ERYTHROMYCIN BASE] Exam Vital signs and Labs for Last 24 Hours: Temp Pulse Resp BP Pulse Ox 98.7 F 92 H 21 100/57 L 92 L 05/18/18 04:00 05/18/18 07:59 05/18/18 04:00 05/18/18 04:00 05/18/18 07:59 Laboratory Results - last 24 hr 05/18/18 00:09: Specimen Source Right radial, O2 % 28%, 2 lpm nc, ABG pH 7.36, ABG pCO2 35.5, ABG pO2 56.3 L, ABG HCO3 19.7 L, ABG Total CO2 20.8 L, ABG O2 Saturation 90, ABG Base Excess -5.7 L, [place] Test Acceptable 05/18/18 00:20: WBC 22.4 H*, RBC 5.23, Hgb 16.7 H, Hct 53.9 H, MCV 103.0 H, MCH 32.0 H, MCHC 31.0 L, RDW 13.3, Plt Count 409, MPV 8.2, Neut % (Auto) 85.3 H, Lymph % (Auto) 8.5 L, [place] % (Auto) 4.7, Eos % (Auto) 1.2, Baso % (Auto) 0.3, [place] # (Auto) 19.1 H, Lymph # (Auto) 1.9, [place] # (Auto) 1.1 H, Eos # (Auto) 0.3, Baso # (Auto) 0.1, Total Counted 100, Neutrophils % (Manual) 80 H, Band Neutrophils % 8.0, Lymphocytes % (Manual) 9 L, Monocytes % (Manual) 2, Eosinophils % (Manual) 1, Platelet Estimate Normal, Hypochromasia 1+, Macrocytosis 2+ 05/18/18 00:20: Sodium 139, Potassium 3.9, Chloride 101, Carbon Dioxide 27, Anion Gap 14.9, BUN 8, Creatinine 0.66, Estimated Creat Clear 60, Estimated GFR 92, Est GFR ( Amer) 111, Glucose 120 H, Calcium 9.1, Total Bilirubin 0.6, AST 9 L, ALT 22, Alkaline Phosphatase 175 H, Troponin I < 0.02, Total Protein 8.2, Albumin 3.3 L, Globulin 4.9 H, Albumin/Globulin Ratio 0.7 L 05/18/18 00:20: Lactate 1.7 05/18/18 05:15: Sodium 135 L, Potassium 4.6, Chloride 101, Carbon Dioxide 26, Anion Gap 12.6, BUN 8, Creatinine 0.62, Estimated Creat Clear 64, Estimated GFR 99, Est GFR ( Amer) 120, Glucose 126 H, Calcium 8.6, Magnesium 1.7, Troponin I < 0.02 05/18/18 05:15: WBC 23.7 H*, RBC 4.56, Hgb 14.4 D, Hct 47.3 H, MCV 103.7 H, MCH 31.6 H, MCHC 30.4 L, RDW 13.4, Plt Count 399, MPV 8.4, Neut % (Auto) 95.2 H, Lymph % (Auto) 3.1 L, [place] % (Auto) 1.1 L, Eos % (Auto) 0.5, Baso % (Auto) 0.2, Neut # (Auto) 22.5 H, Lymph # (Auto) 0.7, [place] # (Auto) 0.3, Eos # (Auto) 0.1, Baso # (Auto) 0.0 I & O for Last 24 hours: Intake & Output 05/15/18 05/16/18 05/17/18 05/18/18 11:59 11:59 11:59 11:59 Intake Total 279 / 279 Balance 279 / 279 Weight 90 lb 8 oz Narrative: Patient is awake, on oxygen, dyspneic with moving about the bed. She is cachectic and has a mariscal her hands and lips area from heavy smoking. Lungs have poor air movement. Heart rate regular. Abdomen soft and nontender. She has no cyanosis or clubbing. Poor skin turgor. Neurologic exam intact. Assessment and Plan (1) Headache disorder Current visit: Yes Status: Acute Category: Medical Code(s): R51 - Headache Very concerned about patient's Tylenol use pattern. Discussed this with her. We will try low-dose tramadol and begin Topamax tonight for pain and hopeful amelioration of these chronic headaches. She has never had a CT scan of her head and given the chronicity of the headaches this certainly would be prudent to do in hospital. (2) Acute exacerbation of chronic obstructive airways disease Current visit: Yes Status: Acute Category: Medical Code(s): J44.1 - Chronic obstructive pulmonary disease with (acute) exacerbation Severe COPD. Continue IV treatment. (3) Community acquired pneumonia Current visit: Yes Status: Acute Qualifiers: Laterality: unspecified laterality Qualified Code(s): J18.9 - Pneumonia, unspecified organism Category: Medical Code(s): J18.9 - Pneumonia, unspecified organism IV antibiotics as noted.
--- NOTE | 2018-05-18 14:57 | Pharmacy Consult Notes ---
[facility] Pharmacy VTE Monitoring - Patient Demographics Admission date: 05/18/18 Report Date: 05/18/18 Time: 14:57 Allergies/Adverse Reactions: Patient Allergies erythromycin base [ERYTHROMYCIN BASE] Allergy (Intermediate, Verified 02/02/18 03:59) I-RASH Height: 1.57 m Weight: 41.05 kg Patient Problems: Current Active Problems Community acquired pneumonia (Acute) Acute exacerbation of chronic obstructive airways disease (Acute) Headache disorder (Acute) - VTE Risk Labs: VTE Related Lab Results Hgb 14.4 g/dL (12.2-16.2) D 05/18/18 05:15 Hct 47.3 % (37.0-47.0) H 05/18/18 05:15 Plt Count 399 K/mm3 (142-424) 05/18/18 05:15 BUN 8 mg/dL (7-18) 05/18/18 05:15 Creatinine 0.62 mg/dL (0.55-1.02) 05/18/18 05:15 Estimated Creat Clear 64 mL/min (50-200) 05/18/18 05:15 VTE Score: 8 VTE Risk Level: Moderate Risk - Prophylaxis VTE Prophylaxis Ordered?: Yes Types of VTE Prophylaxis: TEDS Knee High Location of Applied Device: Bilateral Lower Extremeties
[2018-05-19 06:12] LABS: Eosinophils % 0.1 % (0.1-12.0); Hematocrit 38.9 % (37.0-47.0); Hemoglobin 12.4 g/dL (12.2-16.2); Lymphocytes # 1.4 K/mm3 (0.7-4.5); Lymphocytes % 6.3 % (10-50); Mean Corpuscular HGB Conc 31.8 g/dL (31.8-35.4); Mean Corpuscular Hemoglobin 32.3 pg (27.0-31.2); Mean Corpuscular Volume 101.6 fl (81-99); Monocytes # 0.7 K/mm3 (0.1-1.0); Monocytes % 2.9 % (1.7-9.3); Neutrophils # 20.4 K/mm3 (1.8-7.8); Neutrophils % 90.6 % (37.0-80.0); Platelet Count 367 K/mm3 (142-424); Red Blood Count 3.83 M/mm3 (4.20-5.40); Red Cell Distribution Width 13.5 % (11.5-17.5)
[2018-05-19 06:15] LABS: White Blood Count 22.6 K/mm3 (4.8-10.8)
[2018-05-19 06:19] LABS: Anion Gap 10.3 mEq/L (5-15); Calcium 8.2 mg/dL (8.5-10.1); Potassium 4.3 mmoL/L (3.5-5.1)
[2018-05-19 06:43] LABS: Hypochromasia 1+; Lymphocytes % 8 % (10-50); Macrocytosis 2+; Monocytes % 1 % (2-9); Neutrophils % 85 % (42-76); Rouleaux 1+; Total Cells Counted 100
--- NOTE | 2018-05-19 08:00 | Progress Note ---
Internal Medicine - PN: Subj *Date: 05/19/18 *Time: 10:01 Interval history: Patient remained afebrile overnight. Continues to have significant coughing spells for which she cannot catch her breath. Thick sputum when she is actually able to expectorate. Denies any nausea, vomiting. Continues to complain of musculoskeletal chest pain. Exam Vital signs and Labs for Last 24 Hours: Temp Pulse Resp BP Pulse Ox 97.8 F 75 18 101/56 L 94 L 05/19/18 04:00 05/19/18 06:19 05/19/18 04:00 05/19/18 04:00 05/19/18 06:19 Laboratory Results - last 24 hr 05/18/18 08:22: Troponin I < 0.02 05/19/18 06:00: WBC 22.6 H*, RBC 3.83 L, Hgb 12.4, Hct 38.9, MCV 101.6 H, MCH 32.3 H, MCHC 31.8, RDW 13.5, Plt Count 367, MPV 8.0, Neut % (Auto) 90.6 H, Lymph % (Auto) 6.3 L, [place] % (Auto) 2.9, Eos % (Auto) 0.1, Baso % (Auto) 0.0 L, Neut # (Auto) 20.4 H, Lymph # (Auto) 1.4, [place] # (Auto) 0.7, Eos # (Auto) 0.0, Baso # (Auto) 0.0, Total Counted 100, Neutrophils % (Manual) 85 H, Band Neutrophils % 6.0, Lymphocytes % (Manual) 8 L, Monocytes % (Manual) 1 L, Platelet Estimate Pn, Hypochromasia 1+, Macrocytosis 2+, [place] 1+ 05/19/18 06:00: Sodium 138, Potassium 4.3, Chloride 106, Carbon Dioxide 26, Anion Gap 10.3, BUN 9, Creatinine 0.47 L D, Estimated Creat Clear 85, Estimated GFR 136, Est GFR ( Amer) 165 D, Glucose 117 H, Calcium 8.2 L I & O for Last 24 hours: Intake & Output 05/16/18 05/17/18 05/18/18 05/19/18 23:59 23:59 23:59 23:59 Intake Total 1239 / 1239 Balance 1239 / 1239 Weight 40.823 kg 41.05 kg Microbiology Reports for the Last 24 Hours: Microbiology 05/18/18 09:10 Sputum - Expectorated Sputum Gram Stain - Final 05/18/18 09:10 Sputum - Expectorated Sputum Sputum Culture - Preliminary Narrative: Patient is awake, alert, on oxygen, dyspneic with moving about the bed. She is cachectic with prominence of ribs. Lungs have poor air movement, diffuse rhonchi that move with cough, as well as diffuse wheeze heart rate regular. Abdomen soft and nontender. She has no cyanosis or clubbing. Poor skin turgor. Neurologic exam intact Assessment and Plan (1) Headache disorder Current visit: Yes Status: Acute Category: Medical Code(s): R51 - Headache Interval improvement today. Continue current plan (2) Acute exacerbation of chronic obstructive airways disease Current visit: Yes Status: Acute Category: Medical Code(s): J44.1 - Chronic obstructive pulmonary disease with (acute) exacerbation (3) Community acquired pneumonia Current visit: Yes Status: Acute Qualifiers: Laterality: unspecified laterality Qualified Code(s): J18.9 - Pneumonia, unspecified organism Category: Medical Code(s): J18.9 - Pneumonia, unspecified organism - Assessment and plan all Dx Assessment and Plan for all problems:: Cultures pending. Continue current IV regimen with steroids and antibiotics. While patient has slight improvement over admission, still quite sick requiring inpatient management. Plan to initiate trelegy today to add laba/lama/ICS combo to her therapy. Plan to go home with this regimen as well.
--- NOTE | 2018-05-20 07:54 | Discharge Summary ---
General - General Admission date:: 05/18/18 Discharge date: 05/20/18 HPI HPI: 58-year-old white female with severe, oxygen requiring COPD and chronic pulmonary cachexia with severe protein calorie malnutrition who presented to the emergency department with 2-3 weeks of worsening dyspnea. She has baseline dyspnea that she reports has been present since March, but has been unable to get to the office because of transportation difficulties. Came to the emergency department where she was found to have significant leukocytosis, evidence of COPD exacerbation on examination and admitted to hospital for IV antibiotics and steroids. She reports this morning after 1 night of IV fluids and oxygen she feels somewhat better. Hospital Course Hospital Course: Patient was admitted and placed on IV antibiotics and steroids. Did very well with this. She is produced some sputum which showed no significant culture growth and her blood cultures were negative. She slowly improved and triple inhaler was sampled for the patient in the hospital which seemed to help her. This morning she was doing well, O2 saturations on room air were 87%. The patient already receives oxygen at night but this will need to be upgraded. The patient wished to be discharged home and I believe she can be safely transition to oral therapy. She still has significant leukocytosis, but we will follow this as an outpatient I believe this is from her infection and steroid treatment. Of note patient complained of headache disorder and had been taking a significant amount of Tylenol, approximately 5 g/day, we will work this up in the hospital with a CT scan that was negative for cause of headache and gave her low-dose tramadol which improved. I plan to discharge her home with nightly topiramate to see if this will help w ith headache prophylaxis. Objective Vital signs: Temp Pulse Resp BP Pulse Ox 97.8 F 68 19 111/66 94 L 05/20/18 04:00 05/20/18 06:02 05/20/18 04:00 05/20/18 04:00 05/20/18 07:49 Narrative: Patient ate 100% of her breakfast. Is much more energetic. Lungs have rhonchi in both bases but somewhat improved air entry over admission. Heart rate regular. Hydration status is good. No clubbing, no cyanosis, no peripheral edema. Alert. Oriented. Cranial nerves are intact. Moves all extremities well. Results Labs on day of discharge: Preliminary micro results at discharge 05/18/18 00:20 Blood Culture - Preliminary Blood NO GROWTH AFTER 48 HOURS 05/18/18 00:20 Blood Culture - Preliminary Blood NO GROWTH AFTER 48 HOURS DS: Diagnosis - Discharge Diagnosis (1) Headache disorder Status: Chronic (2) Acute exacerbation of chronic obstructive airways disease Status: Acute (3) Community acquired pneumonia Status: Acute Discharge Plan - Patient Discharge Instructions ACTIVITY: Continue current activity DIET: continue same diet - Follow up Plan Follow up with: Solo Vargas MD [Primary Care Provider] - 05/24/18 Disposition: Home, Self-Jail Medications: Home Medications Medication Instructions Recorded Confirmed Type Albuterol Sulfate [Albuterol HFA 1 - 2 puffs IH Q4-6H PRN 02/02/18 05/18/18 History Inhaler] Montelukast Sodium [Montelukast 10 mg PO DAILY 02/02/18 05/18/18 History 10mg Tab] Tiotropium Br/Olodaterol HCl 2 inh IH DAILY 02/02/18 05/18/18 History [Stiolto Respimat Inhal [place]] Acetaminophen [Tylenol 500mg 500 mg PO Q4HP PRN 05/18/18 05/18/18 History tablet] Albuterol Sulfate [Albuterol 2.5 mg IH Q4-6H 05/18/18 05/18/18 History 0.083% 2.5mg/3mL neb] Cetirizine HCl 10 mg PO DAILY 05/18/18 05/18/18 History Fluticasone Propionate [Flonase 1 spr NS DAILY 05/18/18 05/18/18 History 50mcg nasal spray 16gm] Meloxicam 15 mg PO DAILY 05/18/18 05/18/18 History Omeprazole [Omeprazole 20mg 20 mg PO BID 05/18/18 05/18/18 History Capsule] Prescriptions/Medication Reconciliation: New Fluticasone/Umeclidin/Vilanter [Trelegy Ellipta 100-62.5-25] 1 each IH DAILY #1 blst.w.dev levoFLOXacin [Levaquin 500mg tab] 500 mg PO DAILY #7 tab predniSONE [Deltasone 20mg tablet] 20 mg PO BID 7 Days #14 tab Topiramate 50 mg PO HS #30 tablet Continue Montelukast Sodium [Montelukast 10mg Tab] 10 mg PO DAILY Albuterol Sulfate [Albuterol HFA Inhaler] 1 - 2 puffs IH Q4-6H PRN PRN Reason: Shortness Of Breath Or Wheezing Fluticasone Propionate [Flonase 50mcg nasal spray 16gm] 1 spr NS DAILY Albuterol Sulfate [Albuterol 0.083% 2.5mg/3mL neb] 2.5 mg IH Q4-6H Meloxicam 15 mg PO DAILY Cetirizine HCl 10 mg PO DAILY Omeprazole [Omeprazole 20mg Capsule] 20 mg PO BID Discontinued Tiotropium Br/Olodaterol HCl [Stiolto Respimat Inhal [place]] 2 inh IH DAILY Acetaminophen [Tylenol 500mg tablet] 500 mg PO Q4HP PRN PRN Reason: pain
== END 2018-05-20 11:03 | disposition home or self-care (01) ==
LOC: ER 23:56 → 2ND 05-18 01:59
PROVIDERS: ADMIT Family Medicine; ATTEND Internal Medicine Adolescent Medicine

== ENCOUNTER 2018-06-12 15:47 | Observation (INO) ==
--- NOTE | 2018-06-12 16:00 | Emergency Department Note ---
ED Disposition Clinical Impression: COPD exacerbation Community acquired pneumonia Qualifiers: Laterality: left Lung location: lower lobe of lung Qualified Code(s): J18.1 - Lobar pneumonia, unspecified organism Disposition: Still a Patient Condition on Discharge: Fair Referrals: Solo Vargas MD [Primary Care Provider] - - Critical Care Critical Care Time: No Attestation: On , the high probability of a clinically significant, sudden or life threatening deterioration of the following system(s) required my full and direct attention, intervention and personal management. The time I documented below is in addition to time spent performing reported procedures but includes the following listed in this critical care notation. Medical Decision Making - Nick Inquiry Pt receiving controlled substance: No Vital Signs: 06/12/18 15:50 06/12/18 17:07 06/12/18 17:12 Temperature 98.3 F Temperature Source Oral Pulse Rate 104 H Pulse Rate [Right Radial] 113 H 110 H Respiratory Rate 24 Blood Pressure [Right Arm] 108/68 L 117/74 Blood Pressure Mean [Right Arm] 81 88 Blood Pressure Source [Right Arm] Automatic Cuff Automatic Cuff Blood Pressure Position [Right Arm] Sitting 02 Sat by Pulse Oximetry 94 L 96 Oxygen Delivery Method Nasal Cannula Nasal Cannula Oxygen Flow Rate (LPM) 2.5 2 - Lab Data Lab Results 06/12/18 16:20: WBC 16.5 H, RBC 4.80, Hgb 15.1, Hct 48.7 H, MCV 101.4 H, MCH 31.5 H, MCHC 31.1 L, RDW 13.5, Plt Count 558 H, MPV 7.4, Neut % (Auto) 81.0 H, Lymph % (Auto) 11.9, Coffee % (Auto) 5.5, Eos % (Auto) 1.4, Baso % (Auto) 0.3, Neut # (Auto) 13.3 H, Lymph # (Auto) 2.0, [place] # (Auto) 0.9, Eos # (Auto) 0.2, Baso # (Auto) 0.1, Total Counted 100, Neutrophils % (Manual) 88 H, Lymphocytes % (Manual) 9 L, Monocytes % (Manual) 3, Platelet Estimate Marked increase, Macrocytosis 1+ 06/12/18 16:20: Sodium 139, Potassium 3.7, Chloride 103, Carbon Dioxide 26, Anion Gap 13.7, BUN 6 L, Creatinine 0.56, Estimated Creat Clear 72, Estimated GFR 111, Est GFR ( Amer) 135, Glucose 99, Calcium 9.1, Total Bilirubin 0.2, AST 8 L, ALT 19, Alkaline Phosphatase 157 H, Total Protein 8.3 H, Albumin 3.0 L, Globulin 5.3 H, Albumin/Globulin Ratio 0.6 L 06/12/18 16:20: Lactate 0.7 Result diagrams: 06/12/18 16:20 06/12/18 16:20 Orders (Tests/Meds): ED MEDICATIONS Generic Name Dose Route Start Last Admin Trade Name Freq PRN Reason Stop Dose Admin Levofloxacin/Dextrose 750 mg in 150 mls @ 100 mls/hr 06/12/18 17:15 06/12/18 17:19 Levofloxacin 750mg/150ml Premix IV 06/26/18 17:14 100 mls/hr Q24H PRAVIN Administration Protocol Sodium Chloride 3 ml 06/12/18 17:13 Sodium Chloride 3% 15ml [facility] 07/12/18 17:12 ONCE PRN INDUCE SPUTUM COLLECTION Discontinued Medications Generic Name Dose Route Start Last Admin Trade Name Freq PRN Reason Stop Dose Admin Albuterol/Ipratropium 3 ml 06/12/18 16:35 06/12/18 17:11 Duoneb 3ml [facility] 06/12/18 16:36 3 ml ONCE ONE Administration Methylprednisolone Sodium Succinate 125 mg 06/12/18 16:35 06/12/18 16:48 Solu-Medrol 125mg/2ml Vial IV 06/12/18 16:36 125 mg ONCE ONE Administration ORDERS Category Date Time Status Blood Culture Stat Micro 06/12/18 16:20 Received Sputum Culture & Gram Stain Routine Micro 06/12/18 17:15 Received - Radiology Data #1 Image(s): Chest Image Reviewed: Yes I reviewed the patient's radiology image, Yes I have reviewed radiologist's interpretation IMPRESSION: COPD with chronic changes with possible superimposed infiltrate in the left lung base laterally Dictated By: Getachew Vega MD Signed By: <Electronically signed by Getachew Vega MD in OV> 06/12/18 1710COPD, pulmonary fibrosis most prominent in the bases, no appreciable change, no definite confluent infiltrate - ECG Data Tracing #1 EKG interpreted by Luis Renusch, MD: Rhythm: sinus tachycardia Rate: 108 Severance: normal Ectopy: Premature ventricular contraction Conduction: normal ST Segment Changes: none T Wave Changes: none Q Waves: none No evidence of acute ischemia or injury Baseline artifact and wander present, but I consider the EKG adequate for accurate interpretation. - Physician Consults Physician Consulted: Sy Vargas Time: 17:30 Reason -: Admission Comment/Response: Agrees to admit the patient to the hospital. We discussed the patient's clinical information, including history, exam, laboratory and radiology results and ED course. Per hospital procedure, I will write temporary bridge inpatient orders on the patient. Specific orders requested by the admitting physician: Steroids, antibiotics, nebulizer treatments, oxygen General Adult HPI - General Stated complaint: SOA Time Seen by Provider: 06/12/18 16:26 - History of Present Illness HPI narrative: Patient has severe oxygen dependent COPD. She was hospitalized through 05/20/18 for COPD exacerbation. She says that ever since then she is been deteriorating again. She complains of a cough producing foul sputum, "pus". Shortness of air, pleuritic type chest pain from "sore muscles from coughing", tussive emesis, rhinorrhea. Says that she saw Dr. Alberto in the office on June 05. She is on 2-1/2 L oxygen at home, nebulizer treatments every 4 hours, has had 2 nebulizer treatments today, but is not on antibiotics or steroids currently. - Related Data Home Medications Medication Instructions Recorded Confirmed Albuterol Sulfate [Albuterol HFA 1 - 2 puffs IH Q4-6H PRN 02/02/18 06/12/18 Inhaler] Albuterol Sulfate [Albuterol 2.5 mg IH Q4-6H 05/18/18 06/12/18 0.083% 2.5mg/3mL neb] Fluticasone Propionate [Flonase 1 spr NS DAILY PRN 05/18/18 06/12/18 50mcg nasal spray 16gm] Aspirin [Aspir 81] 81 mg PO DAILY 06/12/18 06/12/18 Fluticasone/Umeclidin/Vilanter 1 each IH DAILY 06/12/18 06/12/18 [Trelegy Ellipta 100-62.5-25] Pantoprazole Sodium [Protonix 40mg 40 mg PO DAILY 06/12/18 06/12/18 tablet] Topiramate 50 mg PO DAILY 06/12/18 06/12/18 Allergies Allergy/AdvReac Type Severity Reaction Status Date / Time erythromycin base Allergy Intermediate I-RASH Verified 02/02/18 03:59 [ERYTHROMYCIN BASE] [facility] History - Hepatitis A Screen Attestation statement:: This patient has been screened for Hepatitis A risk factors. I have reviewed the patient's past medical history: Yes Medical History: Reports:: Chronic Obstructive Pulmonary Disease (COPD), Palpitations Denies:: Cancer, Diabetes Mellitus Type 1, Diabetes Mellitus Type 2, MRSA Other Medical History: Reports: Anemia, Sinus Problems Laterality Cases: Right: Other Other Surgeries: Yes: Colonoscopy, Hysterectomy-Total, Splenectomy (X2), Tubal Ligation Amputation: No Fractures: No - Social History Smoking Status: Former smoker Tobacco Type: cigarettes # Packs/Day (cigarettes): 1 #Yrs smoked (if former smoker): 40 Alcohol Intake: never Occupational Status: employed Housing: house Household Members: spouse, family Family Hx:: Anemia, Cancer, Hyperlipidemia, Hypertension ROS Obtained: Yes All systems reviewed & no additional complaints - Constitutional Constitutional: Reports fatigue, Reports fever(s) (Subjective) - ENT Ears, Nose, Mouth, and Throat: Reports nasal discharge, Denies sore throat - Cardiovascular Cardiovascular: Reports chest pain, Denies edema - Respiratory Respiratory: Yes cough, Yes dyspnea, Yes excessive phlegm production - Gastrointestinal Gastrointestingal: Reports: vomiting. Denies: diarrhea Physical Exam - General General appearance: alert Comment: Mild respiratory distress - Head Head exam: atraumatic, normocephalic - Eye Eye exam: Present: normal appearance, PERRL, EOMI - ENT ENT exam: Present: mucous membranes moist - Neck Neck exam: Present: normal inspection, trachea midline - Chest Chest inspection: Present: normal inspection, symmetric chest wall rise - Respiratory Respiratory exam: Present: other (Decreased breath sounds) - Cardiovascular Cardiovascular exam: Present: normal rhythm, tachycardia, normal heart sounds - Abdominal Exam Abdominal exam: Present: soft. Absent: distention, tenderness - Extremities Exam Extremities exam: Present: normal inspection. Absent: pedal edema, calf tenderness - Neurological Exam Neurological exam: Present: alert, oriented X3 - Psychiatric Psychiatric exam: Present: normal affect, normal mood - Skin Skin exam: Present: intact
[2018-06-12 16:45] LABS: Basophils # 0.1 K/mm3 (0-0.2); Basophils % 0.3 % (0.1-2.0); Eosinophils # 0.2 K/mm3 (0.0-0.4); Eosinophils % 1.4 % (0.1-12.0); Hematocrit 48.7 % (37.0-47.0); Hemoglobin 15.1 g/dL (12.2-16.2); Lymphocytes % 11.9 % (10-50); Mean Corpuscular HGB Conc 31.1 g/dL (31.8-35.4); Mean Corpuscular Hemoglobin 31.5 pg (27.0-31.2); Mean Corpuscular Volume 101.4 fl (81-99); Mean Platelet Volume 7.4 fl (7.4-10.4); Monocytes # 0.9 K/mm3 (0.1-1.0); Monocytes % 5.5 % (1.7-9.3); Neutrophils # 13.3 K/mm3 (1.8-7.8); Platelet Count 558 K/mm3 (142-424); Red Cell Distribution Width 13.5 % (11.5-17.5); White Blood Count 16.5 K/mm3 (4.8-10.8)
[2018-06-12 16:50] LABS: Albumin/Globulin Ratio 0.6 (1.1-1.8); Anion Gap 13.7 mEq/L (5-15); Bilirubin,Total 0.2 mg/dL (0.2-1.0); Calcium 9.1 mg/dL (8.5-10.1); Globulin 5.3 gm/dl (1.3-3.2); Potassium 3.7 mmoL/L (3.5-5.1); Total Protein,Serum 8.3 gm/dL (6.4-8.2)
[2018-06-12 17:21] LABS: Lymphocytes % 9 % (10-50); Macrocytosis 1+; Monocytes % 3 % (2-9); Neutrophils % 88 % (42-76); Total Cells Counted 100
--- NOTE | 2018-06-13 08:32 | Pharmacy Consult Notes ---
[facility] Pharmacy VTE Monitoring - Patient Demographics Admission date: 06/12/18 Report Date: 06/13/18 Time: 08:32 Allergies/Adverse Reactions: Patient Allergies erythromycin base [ERYTHROMYCIN BASE] Allergy (Intermediate, Verified 02/02/18 03:59) I-RASH Height: 1.57 m Weight: 40.937 kg Patient Problems: Current Active Problems Community acquired pneumonia (Acute) COPD exacerbation (Acute) - VTE Risk Labs: VTE Related Lab Results Hgb 15.1 g/dL (12.2-16.2) 06/12/18 16:20 Hct 48.7 % (37.0-47.0) H 06/12/18 16:20 Plt Count 558 K/mm3 (142-424) H 06/12/18 16:20 BUN 6 mg/dL (7-18) L 06/12/18 16:20 Creatinine 0.56 mg/dL (0.55-1.02) 06/12/18 16:20 Estimated Creat Clear 72 mL/min (50-200) 06/12/18 16:20 VTE Score: 4 VTE Risk Level: Low Risk - Prophylaxis VTE Prophylaxis Ordered?: Yes Types of VTE Prophylaxis: TEDS Knee High Location of Applied Device: Bilateral Lower Extremeties - VTE Diagnosis Confirmed Treatment or plan recommended: Continue Current Treatment
--- NOTE | 2018-06-13 11:39 | H&P/Discharge Summary ---
General - General Admission date:: 06/12/18 Discharge date: 06/13/18 *Admission Date: 06/12/18 *Chief complaint: shortness of breath, cough *History of present illness: 58 year old female with a long history of restrictive lung disease who is home O2 dependent presented to the ED last evening with increased shortness of breath. Reports productive cough, states sputum has been "a rainbow of different colors." No fevers. Reports she quit smoking 2 months ago. In the ED, she was found to have WBC 16.5 and LLL pneumonia. She was admitted for IV antibiotics on CAP protocol. [facility] History I have reviewed the patient's past medical history: Yes Medical History: Reports:: Chronic Obstructive Pulmonary Disease (COPD), Palpitations Denies:: Cancer, Diabetes Mellitus Type 1, Diabetes Mellitus Type 2, MRSA Have you ever received a pneumonia vaccine?: Yes Have you received a flu vaccine this season?: Yes Other Medical History: Reports: Anemia, Sinus Problems Laterality Cases: Right: Other Other Surgeries: Yes: Colonoscopy, Hysterectomy-Total, Splenectomy (X2), Tubal Ligation Amputation: No Fractures: No - *Social History Educational Level: Attended High School Smoking Status: Former smoker Tobacco Type: cigarettes # Packs/Day (cigarettes): 1 #Yrs smoked (if former smoker): 40 Alcohol Intake: never Occupational Status: previously employed Housing: house Household Members: spouse, family Travel in the last 8 weeks: None - Psychiatric History Expresses thoughts of harming self/others: None Suicide Plan Description: No Plan *Family Hx:: Anemia, Cancer, Hyperlipidemia, Hypertension Review of Systems - Review of Systems Review of systems:: pertinent systems reviewed and negative unless documented below - Constitutional Reports weakness - *Respiratory Reports cough, Reports shortness of breath Exam Vital signs and Labs for Last 24 Hours: Temp Pulse Resp BP Pulse Ox 97.5 F L 96 H 22 99/57 L 95 06/13/18 08:00 06/13/18 08:00 06/13/18 08:00 06/13/18 08:00 06/13/18 08:00 Laboratory Results - last 24 hr 06/12/18 16:20: WBC 16.5 H, RBC 4.80, Hgb 15.1, Hct 48.7 H, MCV 101.4 H, MCH 31.5 H, MCHC 31.1 L, RDW 13.5, Plt Count 558 H, MPV 7.4, Neut % (Auto) 81.0 H, Lymph % (Auto) 11.9, [place] % (Auto) 5.5, Eos % (Auto) 1.4, Baso % (Auto) 0.3, Jamel t # (Auto) 13.3 H, Lymph # (Auto) 2.0, [place] # (Auto) 0.9, Eos # (Auto) 0.2, Baso # (Auto) 0.1, Total Counted 100, Neutrophils % (Manual) 88 H, Lymphocytes % (Manual) 9 L, Monocytes % (Manual) 3, Platelet Estimate Marked increase, Macrocytosis 1+ 06/12/18 16:20: Sodium 139, Potassium 3.7, Chloride 103, Carbon Dioxide 26, Anion Gap 13.7, BUN 6 L, Creatinine 0.56, Estimated Creat Clear 72, Estimated GFR 111, Est GFR ( Amer) 135, Glucose 99, Calcium 9.1, Total Bilirubin 0.2, AST 8 L, ALT 19, Alkaline Phosphatase 157 H, Total Protein 8.3 H, Albumin 3.0 L, Globulin 5.3 H, Albumin/Globulin Ratio 0.6 L 06/12/18 16:20: Lactate 0.7 I & O for Last 24 hours: Intake & Output 06/10/18 06/11/18 06/12/18 06/13/18 11:59 11:59 11:59 11:59 Intake Total 390 / 390 Output Total 600 / 600 Balance -210 / -210 Weight 90 lb 4 oz Microbiology Reports for the Last 24 Hours: Microbiology 06/12/18 17:15 Sputum - Expectorated Sputum Gram Stain - Final 06/12/18 17:15 Sputum - Expectorated Sputum Sputum Culture - Preliminary Narrative: Alert and oriented x3. Frail, cachetic. Rate and rhythm regular. No LE edema. Lung sounds with scattered wheezes, coarse bilateral bases, decent air movement. Abdomen soft and nontender. Poor dentition. Nose clear. No anterior cervical LAD. No thyromegaly. No neuro deficits. Hospital Course Hospital Course: Patient was admitted for CAP. She was given IV antibiotics and steroids. She reports shortness of breath has improved and is insistent that she go home. Saturations at baseline. Tolerating oral intake well. Discharge home on Levaquin, prednisone and Anora. See med rec for complete list. FU with myself in the office in 6 days. Results Labs on day of discharge: Labs from last 24 hours 06/12/18 06/12/18 06/12/18 16:20 16:20 16:20 WBC 16.5 H RBC 4.80 Hgb 15.1 Hct 48.7 H MCV 101.4 H MCH 31.5 H MCHC 31.1 L RDW 13.5 Plt Count 558 H MPV 7.4 Neut % (Auto) 81.0 H Lymph % (Auto) 11.9 [place] % (Auto) 5.5 Eos % (Auto) 1.4 Baso % (Auto) 0.3 Neut # (Auto) 13.3 H Lymph # (Auto) 2.0 [place] # (Auto) 0.9 Eos # (Auto) 0.2 Baso # (Auto) 0.1 Total Counted 100 Neutrophils % (Manual) 88 H Lymphocytes % (Manual) 9 L Monocytes % (Manual) 3 Platelet Estimate Marked increase Macrocytosis 1+ Sodium 139 Potassium 3.7 Chloride 103 Carbon Dioxide 26 Anion Gap 13.7 BUN 6 L Creatinine 0.56 Estimated Creat Clear 72 Estimated GFR 111 Est GFR ( Amer) 135 Glucose 99 Lactate 0.7 Calcium 9.1 Total Bilirubin 0.2 AST 8 L ALT 19 Alkaline Phosphatase 157 H Total Protein 8.3 H Albumin 3.0 L Globulin 5.3 H Albumin/Globulin Ratio 0.6 L Preliminary micro results at discharge 06/12/18 17:15 Sputum Culture - Preliminary Sputum - Expectorated Sputum DS: Diagnosis - Discharge Diagnosis (1) COPD exacerbation Status: Acute (2) Community acquired pneumonia Status: Acute Discharge Medications - Medications for Discharge Home Medication List at Discharge: New predniSONE [Prednisone 20mg Tab] 20 mg PO BID 5 Days #10 tab levoFLOXacin [Levaquin 750mg tablet] 750 mg PO DAILY #7 tab Umeclidinium Brm/Vilanterol Tr [Anoro Ellipta 62.5-25 Mcg INH] 1 inh IH DAILY 30 Days #1 device Continue Albuterol Sulfate [Albuterol HFA Inhaler] 1 - 2 puffs IH Q4-6H PRN PRN Reason: Shortness Of Breath Or Wheezing Fluticasone Propionate [Flonase 50mcg nasal spray 16gm] 1 spr NS DAILY PRN PRN Reason: allergies Albuterol Sulfate [Albuterol 0.083% 2.5mg/3mL neb] 2.5 mg IH Q4-6H Topiramate 50 mg PO DAILY Aspirin [Aspir 81] 81 mg PO DAILY Pantoprazole Sodium [Protonix 40mg tablet] 40 mg PO DAILY Discontinued Fluticasone/Umeclidin/Vilanter [Trelegy Ellipta 100-62.5-25] 1 each IH DAILY Disposition Disposition: Home, Self-Care
== END 2018-06-13 13:49 | disposition home or self-care (01) ==
LOC: 2ND 15:47 → ER 15:47 → 2ND 18:45
PROVIDERS: ADMIT Emergency Medicine; ATTEND Internal Medicine Adolescent Medicine
DX: Z87.891 Personal history of nicotine dependence; Z79.82 Long term (current) use of aspirin; J18.1 Lobar pneumonia, unspecified organism; R06.02 Shortness of breath; Z99.81 Dependence on supplemental oxygen; Z79.899 Other long term (current) drug therapy; J44.1 Chronic obstructive pulmonary disease with (acute) exacerbation; Z79.51 Long term (current) use of inhaled steroids; Z88.8 Allergy status to other drugs, medicaments and biological substances
CPT/HCPCS: 71010; 71045; 80053; 83605; 85007; 85025; 87040; 87070; 87077; 87184; 87205; 93005; 94640; 96365; 96375; 99285; G0378; J1956

== ENCOUNTER → 2018-08-01 08:21 | Outpatient (CLI) | payer MEDICAID, SELFPAY ==
--- NOTE | 2018-08-01 08:38 | US_ITS ---
US abdomen limited History:Vomiting, abdominal pain Ordering Physician:Solo Vargas MD Patient Age: 58 years Comparison:None Findings: Pancreas:Unremarkable. No obvious mass or abnormal fluid collection. No ductal dilatation Liver:Unremarkable. No obvious mass or abnormal fluid collection. No ductal dilatation Right Kidney:Unremarkable. Normal size and echogenicity. No hydronephrosis Gallbladder:No gallstones, gallbladder wall thickening, pericholecystic fluid, or biliary dilatation. Common bile duct is upper normal at 6 mm. Impression:Negative gallbladder/right upper quadrant ultrasound
== END ==
PROVIDERS: PCP Internal Medicine Adolescent Medicine; Visit Provider Internal Medicine Adolescent Medicine
DX: R10.11 Right upper quadrant pain (principal)
CPT/HCPCS: 76705

== ENCOUNTER → 2018-08-08 09:30 | Outpatient (CLI) | payer MEDICAID, SELFPAY ==
--- NOTE | 2018-08-08 09:33 | CT_ITS ---
CT abdomen pelvis wo con INDICATION: Right-sided pain. Hematuria. ITS.REASON: HEMATURIA ORDERING PHYSICIAN: Solo Vargas MD PATIENT AGE: 58 years COMPARISON: April 27, 2014. CT abdomen pelvis CT chest from August 2015 also utilized. . TECHNIQUE: No oral nor IV contrast utilized today. Axial images obtained with sagittal and coronal reformats. All CT scans at the facility use one or more dose reduction, viz: automated exposure control, ma/kV adjustment per patient size (including targeted exams where dose is matched to indication, i.e. head), or iterative reconstruction technique. FINDINGS: LUNG BASES. Additional densities and progression of densities at the lung bases bilaterally warrant a follow-up CT. I would specifically note a more evident pleural-based density towards right CP angle which now measures up to 5 cm AP and 1.1 cm thickness. Axial slice 19-17. Also scattered areas of density, most likely due to scarring, at anterior/inferior aspect of both RML & lingula. Also at the left lung base on axial image 18, there is a focal 11 mm slight stellate area which is most likely associated with the area of scarring seen here on sagittal image 65, 64. . These densities may be due to postinflammatory scarring but but have progressed or developed since since 2016 CT chest; and with the patient's advanced emphysematous changes & history of smoking recommend follow-up CT chest ABDOMEN AND PELVIS. Lack of oral & IV contrast somewhat decreased sensitivity. The patient very thin with lack of fat which also decreases detail/resolution. Liver: Noncontrast images of live reveal no focal lesions. No biliary ductal dilatation. Generous volume right lobe liver vs modest left lobe noted..- Similar appearance previous study Upper normal right lobe . Gallbladder resides along medial margin of this generous right lobe. No change since previous study. No calcified stones or ductal dilatation. Pancreas not well delineated on this noncontrast study but but no significant new findings. Areas of density just inferior to the tail the pancreas appear to reflect bowel loops, & stable feature since prior study. .. Spleen removed but again note stable pair of splenules together measuring roughly 4 cm transverse X 2.5cm AP again seen just beneath the left hemidiaphragm & just anterior to the superior left kidney. No change here. TRACT-: No urinary tract obstruction.. No hydronephrosis RIGHT KIDNEY. Punctate nonobstructive calculi mid right kidney less than 3 mm size. Again note the relatively low lying right kidney. Its lower pole of anterior to the right iliac bone at the upper pelvis. Right kidney appears inferiorly displaced in part due to the patient's generous right lobe the liver along with the inferior position diaphragm due to patient's lung hyperexpansion/ COPD. The right ureter does unremarkable. Not dilated.. Unremarkable. Phleboliths at the pelvic basin bilaterally are again seen similar to the [address] LEFT KIDNEY. Subtle calcification at central left kidney (coronal image 41) more likely a vascular calcification &. Less likely faint calcification within collecting system. No obstructing calculi size. Kidneys generous in size bilaterally. PELVIS. The urinary bladder. No wall thickening.. No prominent findings. On sagittal image 47 initially question a possible tiny 1 mm calculus along inferior aspect the urinary bladder and question a possible very tiny recently passed stone. However this cannot be confirmed on other views thus doubtful as a real finding.. Correlation required. . Uterus surgically removed. No discrete adnexal masses. . On axial image 72 there is a 2.5 cm fluid filled structure which favor more likely related to generous distal small bowel bowel loop although conceivably could
== END ==
PROVIDERS: PCP Internal Medicine Adolescent Medicine; Visit Provider Internal Medicine Adolescent Medicine
DX: R10.11 Right upper quadrant pain (principal); R31.9 Hematuria, unspecified
CPT/HCPCS: 74176

== ENCOUNTER 2018-08-26 15:24 | Inpatient (IN) ==
[2018-08-26 16:18] LABS: Basophils % 0.2 % (0.1-2.0); Hematocrit 48.5 % (37.0-47.0)
--- NOTE | 2018-08-26 16:18 | Pharmacy Consult Notes ---
[facility] Pharmacy VTE Monitoring - Patient Demographics Admission date: 08/26/18 Report Date: 08/26/18 Time: 16:18 Allergies/Adverse Reactions: Patient Allergies erythromycin base [ERYTHROMYCIN BASE] Allergy (Intermediate, Verified 08/19/18 01:22) I-RASH Height: 1.57 m Weight: 43.8 kg - Prophylaxis VTE Prophylaxis Ordered?: Yes Types of VTE Prophylaxis: TEDS Knee High Location of Applied Device: Bilateral Lower Extremeties
[2018-08-26 16:24] LABS: Albumin Level 2.7 gm/dL (3.4-5.0); Albumin/Globulin Ratio 0.5 (1.1-1.8); Anion Gap 13.3 mEq/L (5-15); Bilirubin,Total 0.4 mg/dL (0.2-1.0); Calcium 9.2 mg/dL (8.5-10.1); Globulin 5.9 gm/dl (1.3-3.2); Potassium 3.3 mmoL/L (3.5-5.1); Total Protein,Serum 8.6 gm/dL (6.4-8.2)
[2018-08-26 17:21] LABS: Eosinophils # 0.1 K/mm3 (0.0-0.4); Eosinophils % 0.4 % (0.1-12.0); Hemoglobin 15.7 g/dL (12.2-16.2); Lymphocytes % 13.4 % (10-50); Mean Corpuscular HGB Conc 32.3 g/dL (31.8-35.4); Mean Corpuscular Hemoglobin 31.3 pg (27.0-31.2); Mean Corpuscular Volume 96.8 fl (81-99); Mean Platelet Volume 7.8 fl (7.4-10.4); Monocytes % 6.8 % (1.7-9.3); Neutrophils # 11.7 K/mm3 (1.8-7.8); Neutrophils % 79.2 % (37.0-80.0); Red Blood Count 5.01 M/mm3 (4.20-5.40); Red Cell Distribution Width 14.4 % (11.5-17.5); White Blood Count 14.8 K/mm3 (4.8-10.8)
--- NOTE | 2018-08-26 17:31 | History & Physical Report ---
*Admission Date: 08/26/18 *Chief complaint: Epigastric pain/weight loss *History of present illness: 58-year-old white female with end-stage COPD, oxygen requiring and baseline pulmonary cachexia, who came to my office today with a 3-week history of increasing right upper quadrant pain and increasing epigastric pain that has caused her to essentially stopped eating over the past couple of weeks. She reports extremely minimal intake of food, occasional water drinking, but increasing epigastric pain and weight loss secondary to the above etiology. In the office she was found to have lost over 10% of her body weight over the past couple of months, significant atrophy of tissue and muscle wasting noted, as well as evidence of dehydration and low blood pressure. She was admitted for further evaluation, CT scanning, labs and hydration. [facility] History I have reviewed the patient's past medical history: Yes Medical History: Reports:: Chronic Obstructive Pulmonary Disease (COPD), Palpitations Denies:: Cancer, Diabetes Mellitus Type 1, Diabetes Mellitus Type 2, MRSA *Have you ever received a pneumonia vaccine?: Yes *Have you received a flu vaccine this season?: No Other Medical History: Reports: Anemia, Fibromyalgia, Sinus Problems Laterality Cases: Right: Other Other Surgeries: Yes: Colonoscopy, Hysterectomy-Total, Splenectomy (X2), Tubal Ligation Amputation: No Fractures: No - *Social History Educational Level: Attended High School Smoking Status: Current every day smoker Tobacco Type: cigarettes # Packs/Day (cigarettes): 20 #Yrs smoked (if former smoker): 40 Alcohol Intake: never *Occupational Status:: disabled Housing: house Household Members: spouse, family *Travel in the last 8 weeks: Inside the [place] - Psychiatric History Expresses thoughts of harming self/others: None Suicide Plan Description: No Plan Family Hx:: Anemia, Cancer, Hyperlipidemia, Hypertension Review of Systems - Review of Systems Review of systems:: pertinent systems reviewed and negative unless documented below - Constitutional Reports anorexia, Reports body ache(s), Reports fatigue, Reports lack of energy, Reports malaise, Reports weight loss, Denies chills, Denies daytime sleepiness, Denies excessive sweating, Denies fever(s), Denies headache(s) - Eyes Denies blind spots, Denies blurry vision, Denies change in vision, Denies bulging eyes - ENT Denies abnormal hearing, Denies bleeding gums, Denies change in voice, Denies facial pain, Denies bad breath, Denies headache(s) - *Cardiovascular Denies chest pain, Denies chest pain at rest, Denies excessive sweating, Denies shortness of breath - *Respiratory Reports chest congestion, Reports cough, Reports shortness of breath, Reports shortness of breath with activity, Reports pain with cough, Denies change in phlegm color, Denies excessive phlegm production, Denies coughing up blood - *Gastrointestinal Reports abdominal pain, Denies coffee ground vomit, Denies constipation, Denies cramping, Denies vomiting blood, Denies bright, red blood in stools Comments: Patient reports of vomiting after eating but reports is a clear foamy liquid - *Genitourinary Denies abnormal periods - *Musculoskeletal Denies abnormal walking - Integumentary/Breasts Denies acne, Denies hair loss, Denies bleeding lesions Meds Home Medications Medication Instructions Recorded Confirmed Type Albuterol Sulfate [Albuterol HFA 1 - 2 puffs IH Q4-6H PRN 02/02/18 08/26/18 History Inhaler] Albuterol Sulfate [Albuterol 2.5 mg IH Q4-6H 05/18/18 08/26/18 History 0.083% 2.5mg/3mL neb] Fluticasone Propionate [Flonase 1 spr NS DAILY PRN 05/18/18 08/26/18 History 50mcg nasal spray 16gm] Aspirin [Aspir 81] 81 mg PO DAILY 06/12/18 08/26/18 History Pantoprazole Sodium [Protonix 40mg 40 mg PO DAILY 06/12/18 08/26/18 History tablet] Topiramate 50 mg PO DAILY 06/12/18 08/26/18 History Buspirone HCl [Buspar 5mg tablet] 5 mg PO BID 08/26/18 08/26/18 History Loratadine [Claritin 10mg Tablet] 10 mg PO DAILY 08/26/18 08/26/18 History Umeclidinium Brm/Vilanterol Tr 1 inh IH DAILY 08/26/18 08/26/18 History [Anoro Ellipta 62.5-25 Mcg INH] dimenhyDRINATE [Dramamine] 25 mg PO DAILY 08/26/18 08/26/18 History Allergies Allergy/AdvReac Type Severity Reaction Status Date / Time erythromycin base Allergy Intermediate I-RASH Verified 08/19/18 01:22 [ERYTHROMYCIN BASE] Exam Vital signs and Labs for Last 24 Hours: Temp Pulse Resp BP Pulse Ox 98.8 F 114 H 18 108/51 L 98 08/26/18 15:34 08/26/18 15:34 08/26/18 15:34 08/26/18 15:34 08/26/18 15:34 Laboratory Results - last 24 hr 08/26/18 16:00: WBC 14.8 H, RBC 5.01, Hgb 15.7, Hct 48.5 H, MCV 96.8, MCH 31.3 H , MCHC 32.3, RDW 14.4, Plt Count 753 H, MPV 7.8, Neut % (Auto) 79.2, Lymph % (Auto) 13.4, [place] % (Auto) 6.8, Eos % (Auto) 0.4, Baso % (Auto) 0.2, Neut # (Auto) 11.7 H, Lymph # (Auto) 2.0, [place] # (Auto) 1.0, Eos # (Auto) 0.1, Baso # (Auto) 0.0 08/26/18 16:00: Sodium 137, Potassium 3.3 L, Chloride 99, Carbon Dioxide 28, Anion Gap 13.3, BUN 9, Creatinine 0.53 L, Estimated Creat Clear 80, Estimated GFR 118, Est GFR ( Amer) 143, Glucose 90, Calcium 9.2, Magnesium 1.7, Total Bilirubin 0.4, AST 9 L, ALT 13, Alkaline Phosphatase 126 H, Total Protein 8.6 H, Albumin 2.7 L, Globulin 5.9 H, Albumin/Globulin Ratio 0.5 L I & O for Last 24 hours: Intake & Output 08/24/18 08/25/18 08/26/18 08/27/18 11:59 11:59 11:59 11:59 Weight 96 lb 9 oz Narrative: Patient is pleasant as always, appears chronically and significantly ill. She is obviously a victim of weight loss since my most recent exam of her. Oropharynx dry but clear. Lungs have rhonchorous sounds and very poor air entry but at her baseline. Heart rate is tachycardic but regular. Abdomen is exquisitely tender. Previously noted scar along the abdominal midline from the epigastric area down to below the umbilicus. No masses palpable but tenderness limits exam. There is no rebound however and her abdomen is not rigid. No CVA tenderness. She has clubbing and dryness of her extremities. Skin changes consistent with weight loss, history of heavy cigarette use and her poor nutrition. Neurologic exam nonfocal. Cranial nerves intact, globally weak but able to move all her extremities. Assessment and Plan (1) Abdominal pain, epigastric Current visit: Yes Status: Acute Category: Medical Code(s): R10.13 - Epigastric pain Significant disease causing malnutrition and weight loss. Admit to hospital. IV fluids. Pain control and nausea control. CT scan of chest/abdomen/pelvis. If These are unrevealing we may consider surgical consult for EGD. (2) Weight loss Current visit: Yes Status: Acute Category: Medical Code(s): R63.4 - Abnormal weight loss Admit to hospital, check labs, IV fluids, see plan above.
[2018-08-26 17:47] LABS: Platelet Count 753 K/mm3 (142-424)
[2018-08-26 17:49] LABS: Microscopic, Urine URINE MICROSCOPIC (MICROSCOPIC)
[2018-08-26 17:59] LABS: Appearance,Urine CLEAR (Clear); Bilirubin,Urine Negative (Negative); Blood, Urine Negative (Negative); Color,Urine YELLOW (Yellow); Glucose,Urine (UA) Negative (Negative); Ketones,Urine 1+ (Negative); Leukocyte Esterase,Urine Negative (Negative); Protein,Urine Negative (Negative); Specific Gravity, Urine <= 1.005 (1.005-1.030); Urobilinogen,Urine 0.2 EU/dl (0.2)
[2018-08-26 18:12] LABS: Bacteria,Urine Trace /lpf
--- NOTE | 2018-08-27 11:34 | Progress Note ---
Internal Medicine - PN: Subj *Date: 08/27/18 *Time: 08:30 Interval history: Overnight Ms. Moralez is continued to have abdominal pain, responding to morphine but not going away per her report. She just wants the pain to go away is her complaint today. Tolerating supplemental oxygen. Had extensive discussion about findings on CAT scans with concern for possible pancreatic mass and lesions in her lungs. Patient states she is not scared and had a feeling something was wrong. Tolerating p.o. intake. Remains afebrile, hemodynamically stable. Blood pressure has been a little softer with pain control but no eulalia hypotension Exam Vital signs and Labs for Last 24 Hours: Temp Pulse Resp BP Pulse Ox 97.7 F 90 19 90/47 L 92 L 08/27/18 07:38 08/27/18 07:38 08/27/18 07:38 08/27/18 07:38 08/27/18 08:00 Laboratory Results - last 24 hr 08/26/18 16:00: WBC 14.8 H, RBC 5.01, Hgb 15.7, Hct 48.5 H, MCV 96.8, MCH 31.3 H , MCHC 32.3, RDW 14.4, Plt Count 753 H, MPV 7.8, Neut % (Auto) 79.2, Lymph % (Auto) 13.4, [place] % (Auto) 6.8, Eos % (Auto) 0.4, Baso % (Auto) 0.2, Neut # (Auto) 11.7 H, Lymph # (Auto) 2.0, [place] # (Auto) 1.0, Eos # (Auto) 0.1, Baso # (Auto) 0.0 08/26/18 16:00: Sodium 137, Potassium 3.3 L, Chloride 99, Carbon Dioxide 28, Anion Gap 13.3, BUN 9, Creatinine 0.53 L, Estimated Creat Clear 80, Estimated GFR 118, Est GFR ( Amer) 143, Glucose 90, Calcium 9.2, Magnesium 1.7, Total Bilirubin 0.4, AST 9 L, ALT 13, Alkaline Phosphatase 126 H, Total Protein 8.6 H, Albumin 2.7 L, Globulin 5.9 H, Albumin/Globulin Ratio 0.5 L 08/26/18 17:30: Urine Color Yellow, Urine Appearance Clear, Urine pH 7.0, Ur Specific [place] <= 1.005, Urine Protein Negative, Urine Glucose (UA) Negative, Urine Ketones 1+, Urine Blood Negative, Urine Nitrate Negative, Urine Bilirubin Negative, Urine Urobilinogen 0.2, Ur Leukocyte Esterase Negative, Urine WBC 3-5, Ur Squamous Epith Cells 3-5, Urine Bacteria Trace I & O for Last 24 hours: Intake & Output 08/24/18 08/25/18 08/26/18 08/27/18 23:59 23:59 23:59 23:59 Intake Total 480 / 480 2032 Balance 480 / 480 2032 Weight 43.8 kg 44.934 kg Narrative: Patient is pleasant, chronically ill, cachectic Bitemporal wasting Oropharynx dry but clear. Lungs have rhonchorous sounds and very poor air entry but at her baseline. Heart rate is tachycardic but regular. Abdomen is exquisitely tender. Previously noted scar along the abdominal midline from the epigastric area down to below the umbilicus. No masses palpable but tenderness limits exam. There is no rebound however and her abdomen is not rigid. No CVA tenderness. She has clubbing and dryness of her extremities. Skin changes consistent with weight loss, history of heavy cigarette use and her poor nutrition. Neurologic exam nonfocal. Cranial nerves intact, globally weak but able to move all her extremities. Assessment and Plan (1) Abdominal pain, epigastric Current visit: Yes Status: Acute Category: Medical Code(s): R10.13 - Epigastric pain CT with concern for borderline pancreatic duct dilation - MRCP ordered, no mass seen - unclear etiology at this time - transitioned pain control to PO Oxy 5mg (2) Weight loss Current visit: Yes Status: Acute Category: Medical Code(s): R63.4 - Abnormal weight loss (3) Cachexia Current visit: Yes Status: Acute Category: Medical Code(s): R64 - Cachexia suspect due to underlying lung disease versus chronic illnesses - monitor intake - nutrition consult. (4) Pneumonia Current visit: Yes Status: Acute Qualifiers: Pneumonia type: due to unspecified organism Laterality: right Lung location: lower lobe of lung Qualified Code(s): J18.1 - Lobar pneumonia, unspecified organism Category: Medical Code(s): J18.9 - Pneumonia, unspecified organism seen on CT - initiated Zosyn, assess for response - Rosibs - goal O2 sats >88 asleep and >92 awake
--- NOTE | 2018-08-28 08:01 | Progress Note ---
Internal Medicine - PN: Subj *Date: 08/28/18 *Time: 07:58 Interval history: Patient continues to be in some pain but her pain medication is effective although it seems to be causing a little bit of confusion. She reports that her shortness of air is worse, and that she has problems getting to the bedside commode because of her dyspnea. She has been able to keep some liquids and soup down. Exam Vital signs and Labs for Last 24 Hours: Temp Pulse Resp BP Pulse Ox 97.9 F 91 H 18 118/53 L 93 L 08/28/18 07:54 08/28/18 07:54 08/28/18 07:54 08/28/18 07:54 08/28/18 07:54 I & O for Last 24 hours: Intake & Output 08/25/18 08/26/18 08/27/18 08/28/18 11:59 11:59 11:59 11:59 Intake Total 2513 / 2513 4490 / 4490 Output Total 400 / 400 1600 / 1600 Balance 2113 / 2113 2890 / 2890 Weight 99 lb 1 oz 97 lb 9 oz Narrative: Patient is somewhat confused secondary to pain medication apparently, which is new compared to admission exam. However she is able to be reoriented and understands where she is and can explain her symptoms fairly well. Lungs have poor air movement but no actual crackles in either lung field. Heart rate regular. Abdomen soft, scaphoid, no rebound, guarding or other tenderness on exam. Extremities have poor skin turgor as previously noted, no active rash. Assessment and Plan (1) Abdominal pain, epigastric Current visit: Yes Status: Acute Category: Medical Code(s): R10.13 - Epigastric pain Continues to be an unusual presentation. MRCP and imaging is reassuring for no evidence of malignancy. However given her epigastric pain location I will asked surgery to evaluate her for their thoughts and order barium swallow to evaluate the lower esophageal area. (2) Weight loss Current visit: Yes Status: Acute Category: Medical Code(s): R63.4 - Abnormal weight loss (3) Cachexia Current visit: Yes Status: Acute Category: Medical Code(s): R64 - Cachexia (4) Pneumonia Current visit: Yes Status: Acute Qualifiers: Pneumonia type: due to unspecified organism Laterality: right Lung location: lower lobe of lung Qualified Code(s): J18.1 - Lobar pneumonia, unspecified organism Category: Medical Code(s): J18.9 - Pneumonia, unspecified organism Continue antibiotics. Given her heavy smoking history and emphysema the multiple pulmonary spots are worrisome. (5) Acute and chronic respiratory failure Current visit: Yes Status: Acute Category: Medical Code(s): J96.20 - Acute and chronic respiratory failure, unspecified whether with hypoxia or hypercapnia (6) Confusion Current visit: Yes Status: Acute Category: Medical Code(s): R41.0 - Disorientation, unspecified Possibly from opiate effect. However given pulmonary masses we will check MRI. (7) Dyspnea Current visit: Yes Status: Acute Category: Medical Code(s): R06.00 - Dyspnea, unspecified Given dyspnea will check echocardiogram to assess for pulmonary hypertension issues. (8) Pulmonary mass Current visit: Yes Status: Acute Category: Medical Code(s): R91.8 - Other nonspecific abnormal finding of lung field
--- NOTE | 2018-08-28 14:39 | Consult Report ---
*Admission Date: 08/26/18 *Chief complaint: Abdominal pain and weight loss. *History of present illness: Patient is a 58-year-old white female with significant COPD. She has prior history of multiple abdominal surgeries. His were done at outside facilities. She had apparent trauma laparotomy when she was a child. She also has had a laparotomy for apparent bowel obstruction and also for ulcer disease greater than 30 years ago. She was admitted a couple of days ago from her primary care provider's office with a 3-week history of abdominal pain and weight loss. She describes multiple episodes of vomiting and dry heaves. She localizes the pain to the upper abdomen and right upper quadrant. She underwent CT scan of the abdomen and pelvis which revealed some prominence of the gallbladder and biliary tree. She did have an MRCP performed which revealed no obvious mass. Surgical consultation was obtained. Review of Systems - Review of Systems Review of systems:: pertinent systems reviewed and negative unless documented below - Constitutional Reports anorexia, Reports weakness, Reports weight loss - ENT Denies dizziness - *Cardiovascular Denies chest pain - *Respiratory Reports shortness of breath - *Gastrointestinal Reports abdominal pain, Reports nausea, Reports vomiting - *Neurologic Denies abnormal walking, Denies abnormal hearing, Denies headache(s) [facility] History Medical History: Reports:: Chronic Obstructive Pulmonary Disease (COPD), Palpitations Denies:: Cancer, Diabetes Mellitus Type 1, Diabetes Mellitus Type 2, MRSA *Have you ever received a pneumonia vaccine?: Yes *Have you received a flu vaccine this season?: No Other Medical History: Reports: Anemia, Fibromyalgia, Sinus Problems Laterality Cases: Right: Other Other Surgeries: Yes: Colonoscopy, Hysterectomy-Total, Splenectomy (X2), Tubal Ligation Amputation: No Fractures: No - *Social History Educational Level: Attended High School Smoking Status: Current every day smoker Tobacco Type: cigarettes # Packs/Day (cigarettes): 20 #Yrs smoked (if former smoker): 40 Alcohol Intake: never *Occupational Status:: disabled Housing: house Household Members: spouse, family *Travel in the last 8 weeks: Inside the [place] - Psychiatric History Expresses thoughts of harming self/others: None Suicide Plan Description: No Plan Family Hx:: Anemia, Cancer, Hyperlipidemia, Hypertension Meds Home Medications Medication Instructions Recorded Confirmed Type Albuterol Sulfate [Albuterol HFA 1 - 2 puffs IH Q4-6H PRN 02/02/18 08/26/18 History Inhaler] Albuterol Sulfate [Albuterol 3 ml IH Q6H 05/18/18 08/27/18 History 0.083% 2.5mg/3mL neb] Fluticasone Propionate [Flonase 1 spr NS DAILYP PRN 05/18/18 08/27/18 History 50mcg nasal spray 16gm] Aspirin [Aspir 81] 81 mg PO DAILY 06/12/18 08/26/18 History Pantoprazole Sodium [Protonix 40mg 40 mg PO DAILY 06/12/18 08/26/18 History tablet] Topiramate 50 mg PO DAILY 06/12/18 08/26/18 History Buspirone HCl [Buspar 5mg tablet] 5 mg PO BID 08/26/18 08/26/18 History Loratadine [Claritin 10mg Tablet] 10 mg PO DAILY 08/26/18 08/26/18 History Umeclidinium Brm/Vilanterol Tr 1 puff IH DAILY 08/26/18 08/27/18 History [Anoro Ellipta 62.5-25 Mcg INH] dimenhyDRINATE [Dramamine] 25 mg PO DAILY 08/26/18 08/26/18 History Allergies Allergy/AdvReac Type Severity Reaction Status Date / Time erythromycin base Allergy Intermediate I-RASH Verified 08/19/18 01:22 [ERYTHROMYCIN BASE] Exam Vital signs and Labs for Last 24 Hours: Temp Pulse Resp BP Pulse Ox 97.9 F 88 18 118/53 L 84 L 08/28/18 07:54 08/28/18 13:50 08/28/18 07:54 08/28/18 07:54 08/28/18 13:50 I & O for Last 24 hours: Intake & Output 08/26/18 08/27/18 08/28/18 08/29/18 11:59 11:59 11:59 11:59 Intake Total 2513 / 2513 4490 / 4490 Output Total 400 / 400 1600 / 1600 500 / 500 Balance 3 / 2113 2890 / 2890 -500 / -500 Weight 99 lb 1 oz 97 lb 9 oz 97 lb 9.014 oz - *Routine HEENT Exam Head: Present: normocephalic Eye: Present: EOMI, PERRL ENT: Present: mucous membranes moist - *Routine Neck Exam Present: supple. Absent: lymphadenopathy - *Routine Respiratory Exam Present: decreased breath sounds - *Routine Cardiovascular Exam Present: RRR - *Routine Abdominal Exam Present: soft, normoactive bowel sounds. Absent: tenderness - *Routine Extremities Exam Absent: cyanosis, clubbing, edema - *Routine Skin Exam Present: warm. Absent: rash - *Routine Neurological Exam Present: alert, oriented X3 - Detailed Eye Exam Eyelids: Left normal inspection Results - Labs 08/26/18 16:00 08/26/18 16:00 Assessment and Plan (1) Abdominal pain, epigastric Current visit: Yes Status: Acute Category: Medical Code(s): R10.13 - Epigastric pain (2) Weight loss Current visit: Yes Status: Acute Category: Medical Code(s): R63.4 - Abnormal weight loss (3) Cachexia Current visit: Yes Status: Acute Category: Medical Code(s): R64 - Cachexia (4) Pneumonia Current visit: Yes Status: Acute Qualifiers: Pneumonia type: due to unspecified organism Laterality: right Lung location: lower lobe of lung Qualified Code(s): J18.1 - Lobar pneumonia, unspecified organism Category: Medical Code(s): J18.9 - Pneumonia, unspecified organism (5) Acute and chronic respiratory failure Current visit: Yes Status: Acute Category: Medical Code(s): J96.20 - Acute and chronic respiratory failure, unspecified whether with hypoxia or hypercapnia (6) Confusion Current visit: Yes Status: Acute Category: Medical Code(s): R41.0 - Disorientation, unspecified (7) Dyspnea Current visit: Yes Status: Acute Category: Medical Code(s): R06.00 - Dyspnea, unspecified (8) Pulmonary mass Current visit: Yes Status: Acute Category: Medical Code(s): R91.8 - Other nonspecific abnormal finding of lung field - Assessment and plan all Dx Assessment and Plan for all problems:: Unclear as to the etiology of the patient's symptoms. Agree with upper GI series for which the patient is being transported to radiology as of now. Pending these findings she may require upper endoscopy. However, if the upper GI series is relatively unremarkable gastroenterology consultation may be warranted and consideration for ERCP may be entertained based on the CT and MRCP findings.
[2018-08-29 07:14] LABS: Basophils % 0.3 % (0.1-2.0); Eosinophils # 0.1 K/mm3 (0.0-0.4); Hematocrit 36.2 % (37.0-47.0); Hemoglobin 11.1 g/dL (12.2-16.2); Lymphocytes # 2.5 K/mm3 (0.7-4.5); Lymphocytes % 22.2 % (10-50); Mean Corpuscular HGB Conc 30.6 g/dL (31.8-35.4); Mean Corpuscular Volume 98.2 fl (81-99); Mean Platelet Volume 7.1 fl (7.4-10.4); Monocytes # 0.7 K/mm3 (0.1-1.0); Monocytes % 6.4 % (1.7-9.3); Neutrophils % 70.1 % (37.0-80.0); Platelet Count 679 K/mm3 (142-424); Red Blood Count 3.69 M/mm3 (4.20-5.40); Red Cell Distribution Width 14.8 % (11.5-17.5); White Blood Count 11.4 K/mm3 (4.8-10.8)
[2018-08-29 07:55] LABS: Albumin Level 2.2 gm/dL (3.4-5.0); Albumin/Globulin Ratio 0.6 (1.1-1.8); Anion Gap 13.9 mEq/L (5-15); Bilirubin,Total 0.5 mg/dL (0.2-1.0); Globulin 3.5 gm/dl (1.3-3.2); Total Protein,Serum 5.7 gm/dL (6.4-8.2)
[2018-08-29 07:58] LABS: Potassium 2.9 mmoL/L (3.5-5.1)
[2018-08-29 09:20] LABS: Anion Gap 11.6 mEq/L (5-15); Calcium 7.8 mg/dL (8.5-10.1)
[2018-08-29 09:23] LABS: Potassium 2.6 mmoL/L (3.5-5.1)
--- NOTE | 2018-08-29 10:03 | Progress Note ---
Internal Medicine - PN: Subj *Date: 08/29/18 *Time: 07:30 Interval history: 58 year old female reports abdominal pain persists through the night, relieved by oxycodone but returns prior to next dose. No nausea, vomiting or diarrhea. Exam Vital signs and Labs for Last 24 Hours: Temp Pulse Resp BP Pulse Ox 98.6 F 84 16 128/70 94 L 08/29/18 07:40 08/29/18 07:40 08/29/18 07:40 08/29/18 07:40 08/29/18 07:40 Laboratory Results - last 24 hr 08/29/18 06:21: WBC 11.4 H, RBC 3.69 L D, Hgb 11.1 L, Hct 36.2 L, MCV 98.2, MCH 30.0, MCHC 30.6 L, RDW 14.8, Plt Count 679 H, MPV 7.1 L, Neut % (Auto) 70.1, Lymph % (Auto) 22.2, [place] % (Auto) 6.4, Eos % (Auto) 1.0, Baso % (Auto) 0.3, Neut # (Auto) 8.0 H, Lymph # (Auto) 2.5, [place] # (Auto) 0.7, Eos # (Auto) 0.1, Baso # (Auto) 0.0 08/29/18 06:21: Sodium 144, Potassium 2.9 L*, Chloride 104, Carbon Dioxide 29, Anion Gap 13.9, BUN 2 L D, Creatinine 0.35 L D, Estimated Creat Clear 119, Es timated GFR 191, Est GFR ( Amer) 231 D, Glucose 90, Calcium 8.0 L D, Total Bilirubin 0.5, AST 9 L, ALT 10 L, Alkaline Phosphatase 91, Total Protein 5.7 L D, Albumin 2.2 L, Globulin 3.5 H, Albumin/Globulin Ratio 0.6 L 08/29/18 09:05: Sodium 144, Potassium 2.6 L*, Chloride 105, Carbon Dioxide 30, Anion Gap 11.6, BUN 1 L D, Creatinine 0.32 L, Estimated Creat Clear 130, Estimated GFR 212, Est GFR ( Amer) 257, Glucose 91, Calcium 7.8 L I & O for Last 24 hours: Intake & Output 08/26/18 08/27/18 08/28/18 03/28/19 11:59 11:59 11:59 11:59 Intake Total 2513 / 2513 4490 / 4490 1766 / 1766 Output Total 400 / 400 1600 / 1600 2850 / 2850 Balance 2112 / 2112 2890 / 2890 -1084 / -1084 Weight 99 lb 1 oz 97 lb 9 oz 95 lb 1 oz Narrative: Cachectic, chronically ill appearing. Alert and oriented x3. Rate and rhythm regular. No LE edema. Scattered wheezes, diminished air movement. Abdomen sunken, tender epigastric region. Normoactive BS Assessment and Plan (1) Abdominal pain, epigastric Current visit: Yes Status: Acute Category: Medical Code(s): R10.13 - Epigastric pain (2) Weight loss Current visit: Yes Status: Acute Category: Medical Code(s): R63.4 - Abnormal weight loss (3) Cachexia Current visit: Yes Status: Acute Category: Medical Code(s): R64 - Cachexia (4) Pneumonia Current visit: Yes Status: Acute Qualifiers: Pneumonia type: due to unspecified organism Laterality: right Lung location: lower lobe of lung Qualified Code(s): J18.1 - Lobar pneumonia, unspecified organism Category: Medical Code(s): J18.9 - Pneumonia, unspecified organism (5) Acute and chronic respiratory failure Current visit: Yes Status: Acute Category: Medical Code(s): J96.20 - Acute and chronic respiratory failure, unspecified whether with hypoxia or hypercapnia (6) Confusion Current visit: Yes Status: Acute Category: Medical Code(s): R41.0 - Disorientation, unspecified (7) Dyspnea Current visit: Yes Status: Acute Category: Medical Code(s): R06.00 - Dyspnea, unspecified (8) Pulmonary mass Current visit: Yes Status: Acute Category: Medical Code(s): R91.8 - Other nonspecific abnormal finding of lung field (9) Severe protein-calorie malnutrition Current visit: Yes Status: Acute Category: Medical Code(s): E43 - Unspecified severe protein-calorie malnutrition (10) Hypokalemia Current visit: Yes Status: Acute Category: Medical Code(s): E87.6 - Hypokalemia - Assessment and plan all Dx Assessment and Plan for all problems:: Pain with decent control on oxycodone. IV and oral potassium replacement ordered for K 2.6. Will recheck BMP in the am. Add PPI BID. CTA abd/pelvis today to r/o SMA syndrome. If negative with consult Dr. Murrieta for evaluation tomorrow.
--- NOTE | 2018-08-29 11:03 | Progress Note ---
Subjective Narrative: Patient continues to complain of some abdominal pain requiring narcotics. Exam Vital signs and Labs for Last 24 Hours: Temp Pulse Resp BP Pulse Ox 98.6 F 90 16 128/70 94 L 08/29/18 07:40 08/29/18 10:35 08/29/18 07:40 08/29/18 07:40 08/29/18 07:40 Laboratory Results - last 24 hr 08/29/18 06:21: WBC 11.4 H, RBC 3.69 L D, Hgb 11.1 L, Hct 36.2 L, MCV 98.2, MCH 30.0, MCHC 30.6 L, RDW 14.8, Plt Count 679 H, MPV 7.1 L, Neut % (Auto) 70.1, Lymph % (Auto) 22.2, [place] % (Auto) 6.4, Eos % (Auto) 1.0, Baso % (Auto) 0.3, Neut # (Auto) 8.0 H, Lymph # (Auto) 2.5, [place] # (Auto) 0.7, Eos # (Auto) 0.1, Baso # (Auto) 0.0 08/29/18 06:21: Sodium 144, Potassium 2.9 L*, Chloride 104, Carbon Dioxide 29, Anion Gap 13.9, BUN 2 L D, Creatinine 0.35 L D, Estimated Creat Clear 119, Estimated GFR 191, Est GFR ( Amer) 231 D, Glucose 90, Calcium 8.0 L D, Total Bilirubin 0.5, AST 9 L, ALT 10 L, Alkaline Phosphatase 91, Total Protein 5.7 L D, Albumin 2.2 L, Globulin 3.5 H, Albumin/Globulin Ratio 0.6 L 08/29/18 09:05: Sodium 144, Potassium 2.6 L*, Chloride 105, Carbon Dioxide 30, Anion Gap 11.6, BUN 1 L D, Creatinine 0.32 L, Estimated Creat Clear 130, Estimated GFR 212, Est GFR ( Amer) 257, Glucose 91, Calcium 7.8 L I & O for Last 24 hours: Intake & Output 08/26/18 08/27/18 08/28/18 08/29/18 11:59 11:59 11:59 11:59 Intake Total 2513 / 2513 4490 / 4490 1766 / 1766 Output Total 400 / 400 1600 / 1600 3250 / 3250 Balance 2113 / 2113 2890 / 2890 -1484 / -1484 Weight 99 lb 1 oz 97 lb 9 oz 95 lb 1 oz - *Routine Abdominal Exam Present: soft, tenderness. Absent: guarding Progress Note: A&P (1) Abdominal pain, epigastric Status: Acute Current Visit: Yes (2) Weight loss Status: Acute Current Visit: Yes (3) Cachexia Status: Acute Current Visit: Yes (4) Pneumonia Status: Acute Current Visit: Yes (5) Acute and chronic respiratory failure Status: Acute Current Visit: Yes (6) Confusion Status: Acute Current Visit: Yes (7) Dyspnea Status: Acute Current Visit: Yes (8) Pulmonary mass Status: Acute Current Visit: Yes (9) Severe protein-calorie malnutrition Status: Acute Current Visit: Yes (10) Hypokalemia Status: Acute Current Visit: Yes Assessment and Plan for All Diagnoses:: UGI results noted from yesterday. Possible findings consistent with SMA compression. Had planned for EGD today. However, patient has had some hypokalemia and anesthesia recommends correction prior to administration of anesthesia. Patient may be able to undergo EGD tomorrow with surgery or gastroenterology. CT angiogram pending today after residual barium cleared from her colon.
[2018-08-29 18:11] LABS: Anion Gap 11.8 mEq/L (5-15); Potassium 3.8 mmoL/L (3.5-5.1)
--- NOTE | 2018-08-29 18:11 | Cardiology Report ---
PROCEDURE: 2-D M-mode and color Doppler study INDICATIONS FOR THE TEST: Chest pain COPD+ Heart Murmur Tobacco Smoking+ Palpitations+ Fatigue Syncope Edema Hypertension Diabetes Mellitus Rheumatic Fever SOB HERNANDEZ Obesity Hyperlipidemia Family History HD Additional History Arrythmia noted PATIENT INFORMATION HEIGHT: 62 WEIGHT: 97 GENDER: Female B/P: 122/84 2-D/M-MODE INTERPRETATION: 2-D MEASUREMENTS OBSERVED VALUES IN CMS Right Ventricular Dimension (RVDd) 2.0 Interventricular Septum (Thickness)(IVsd) 0.8 Left Ventricular Internal Dimensions(LVIDd) 4.7 Left Ventricular Posterior Wall (Thickness)(LVPWd) 0.8 Aortic Root 2.5 Aortic Cusp Separation 2.1 Left Atrial Dimensions (LAD) 2.9 2D 1. Left atrium is normal size, left ventricle is normal size, there is no concentric left ventricular hypertrophy, visually estimated ejection fraction of 55% with no regional wall motion abnormality. 2. The right atrium and right ventricle are mildly enlarged with normal contractility. 3. The aortic valve is thickened and is highly for coronary display mobility. 4. The mitral and tricuspid valve leaflets are grossly normal. 5. The pulmonic valve is poorly visualized. 6. No significant pericardial effusion noted. DOPPLER INTERROGATION: Doppler interrogation of the aortic, mitral and tricuspid valvular presence of mild mitral and tricuspid regurgitation, calculated right ventricular systolic pressure is 41 mmHg consistent with moderate pulmonary hypertension. Inferior vena cava is not well visualized. Diastolic parameters are within normal range. CONCLUSION: 1. Normal left ventricular size, preserved left ventricular systolic function, visually estimated ejection fraction 55% with no regional wall motion abnormality, diastolic parameters are within normal range. 2. Mildly enlarged right ventricle with normal contractility. 3. Mild mitral and tricuspid regurgitation, calculated right ventricular systolic pressure is 1 mmHg consistent with moderate pulmonary hypertension, inferior vena cava is not well visualized. 4. No significant pericardial effusion noted.
[2018-08-29 18:19] LABS: Calcium 8.7 mg/dL (8.5-10.1)
[2018-08-30 06:51] LABS: Anion Gap 10.2 mEq/L (5-15); Calcium 7.9 mg/dL (8.5-10.1); Potassium 3.2 mmoL/L (3.5-5.1)
--- NOTE | 2018-08-30 07:52 | Progress Note ---
Subjective Narrative: Patient complains of feeling "sick". Further questioning reveals this to be nausea. Exam Vital signs and Labs for Last 24 Hours: Temp Pulse Resp BP Pulse Ox 98.0 F 70 18 113/67 98 08/30/18 04:00 08/30/18 05:57 08/30/18 04:00 08/30/18 04:00 08/30/18 05:57 Laboratory Results - last 24 hr 08/29/18 06:21: Sodium 144, Potassium 2.9 L*, Chloride 104, Carbon Dioxide 29, Anion Gap 13.9, BUN 2 L D, Creatinine 0.35 L D, Estimated Creat Clear 119, Estimated GFR 191, Est GFR ( Amer) 231 D, Glucose 90, Calcium 8.0 L D, Total Bilirubin 0.5, AST 9 L, ALT 10 L, Alkaline Phosphatase 91, Total Protein 5.7 L D, Albumin 2.2 L, Globulin 3.5 H, Albumin/Globulin Ratio 0.6 L 08/29/18 09:05: Sodium 144, Potassium 2.6 L*, Chloride 105, Carbon Dioxide 30, Anion Gap 11.6, BUN 1 L D, Creatinine 0.32 L, Estimated Creat Clear 130, Estimated GFR 212, Est GFR ( Amer) 257, Glucose 91, Calcium 7.8 L 08/29/18 18:00: Sodium 143, Potassium 3.8 D, Chloride 106, Carbon Dioxide 29, Anion Gap 11.8, BUN 1 L, Creatinine 0.62 D, Estimated Creat Clear 67, Estimated GFR 99, Est GFR ( Amer) 120 D, Glucose 126 H D, Calcium 8.7 D 08/30/18 06:00: Sodium 143, Potassium 3.2 L, Chloride 108 H, Carbon Dioxide 28, Anion Gap 10.2, BUN 2 L D, Creatinine 0.42 L D, Estimated Creat Clear 100, Estimated GFR 155, Est GFR ( Amer) 188 D, Glucose 89 D, Calcium 7.9 L I & O for Last 24 hours: Intake & Output 08/27/18 08/28/18 08/29/18 08/30/18 11:59 11:59 11:59 11:59 Intake Total 2513 / 2513 4490 / 4490 1766 / 1766 580 / 580 Output Total 400 / 400 1600 / 1600 3250 / 3250 2400 / 2400 Balance 3 / 211 2890 / 2890 -1484 / -1484 -1820 / -1820 Weight 99 lb 1 oz 97 lb 9 oz 95 lb 1 oz 96 lb Microbiology Reports for the Last 24 Hours: Microbiology 08/28/18 09:20 Sputum - Expectorated Sputum Gram Stain - Final 08/28/18 09:20 Sputum - Expectorated Sputum Sputum Culture - Preliminary - *Routine Abdominal Exam Present: soft Progress Note: A&P (1) Abdominal pain, epigastric Status: Acute Current Visit: Yes (2) Weight loss Status: Acute Current Visit: Yes (3) Cachexia Status: Acute Current Visit: Yes (4) Pneumonia Status: Acute Current Visit: Yes (5) Acute and chronic respiratory failure Status: Acute Current Visit: Yes (6) Confusion Status: Acute Current Visit: Yes (7) Dyspnea Status: Acute Current Visit: Yes (8) Pulmonary mass Status: Acute Current Visit: Yes (9) Severe protein-calorie malnutrition Status: Acute Current Visit: Yes (10) Hypokalemia Status: Acute Current Visit: Yes Assessment and Plan for All Diagnoses:: GI consult today.
--- NOTE | 2018-08-30 14:01 | Procedure Note ---
[facility] Procedure Note Procedure Note:: Small bowel enteroscopy/Jejunoscopy report: Jegunoscopy with jejunal feeding tube placement Endoscopost: Rigoberto Murrieta II, MD Referring Physician: Livan Richards MD/Solo Vargas M.D. Date of Procedure: August 30, 2018 Equipment: Olympus GIF 180 standard upper endoscope and pediatric colonoscope Sedation: MAC sedation Indications: Mrs. Moralez is a 58-year-old female with abdominal pain, nausea and vomiting. She has had marked weight loss and now is down to 86 pounds. The patient did have a CT scan of the abdomen and pelvis with contrast on 08/29. There was possible gastritis. She had a subsequent small bowel series that showed compression, stricture or partial obstruction in the third portion of the duodenum suggestive of superior mesenteric syndrome. There was proximal dilation of the second portion of the duodenum. The patient is not anemic. She does have moderate fullness and early satiety. She has had multiple prior surgeries including splenectomy and prior gastric ulcer surgery (vagotomy and pyloroplasty). She is also had some colonic surgeries. She is a smoker and has COPD. We have discussed possible Procedure: Prior to the procedure, a history and physical exam was performed, and patient's medications and allergies were reviewed. The risks, benefits and alternatives of the sedation and procedure were discussed with the patient. All questions were answered and informed consent was obtained. The patient was brought to the procedure room. Patient identification and proposed procedure were verified by the physician and the nurse. The patient was placed in a left lateral decubitus position and the scope was passed under direct vision. Throughout the proce dure, the patient's blood pressure, pulse, and oxygen saturations were monitored continuously. The upper GI endoscopy was accomplished without difficulty. The patient tolerated the procedure well. Findings: The scope was passed directly into the upper esophagus and advanced to the third portion of the duodenum, fourth portion of duodenum and jejunum. The upper endoscope was initially advanced but was not long enough so the pediatric colonoscope was later utilized. 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 There was no intrinsic obstruction within the third portion/duodenal sweep. However, due to the findings on scan and endoscopy, it was felt necessitated to provide enteral feeding downstream in the jejunum. There was good one-to-one visualization/transillumination in the jejunum. Next, a gastrostomy feeding tube kit was utilized and the abdominal scan was prepped and draped in sterile fashion. Next, 1% lidocaine was injected through the skin/abdominal wall into the jejunum. Next, the needle catheter was placed through the abdominal wall and a small incision was made with a scalpel blade. The needle was removed and the thread was placed through the catheter itself and grasped with the colonoscope with a snare. This was pulled in a retrograde fashion out the duodenum, stomach, esophagus and oropharynx. Next, the pull PEJ was attached to the wire and pulled into antegrade fashion snugly against the jejunal mucosa. The procedure was then ended at that point with g ood placement of the jejunal feeding tube directly. Impression: 1. 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 I will discuss the case with patient and family.
--- NOTE | 2018-08-30 17:19 | Progress Note ---
Internal Medicine - PN: Subj *Date: 08/30/18 *Time: 08:30 Interval history: Continue to have nausea overnight. Intermittent severe abdominal pain. Improves with oxycodone. Remains afebrile, shortness of breath stable. His potassium normalized, GI consulted for possible EGD today. Patient denies chest pain, vomiting or diarrhea Exam Vital signs and Labs for Last 24 Hours: Temp Pulse Resp BP Pulse Ox 97.3 F L 76 20 134/79 95 08/30/18 14:37 08/30/18 14:37 08/30/18 14:37 08/30/18 14:37 08/30/18 14:37 Laboratory Results - last 24 hr 08/29/18 18:00: Sodium 143, Potassium 3.8 D, Chloride 106, Carbon Dioxide 29, Anion Gap 11.8, BUN 1 L, Creatinine 0.62 D, Estimated Creat Clear 67, Estimated GFR 99, Est GFR ( Amer) 120 D, Glucose 126 H D, Calcium 8.7 D 08/30/18 06:00: Sodium 143, Potassium 3.2 L, Chloride 108 H, Carbon Dioxide 28, Anion Gap 10.2, BUN 2 L D, Creatinine 0.42 L D, Estimated Creat Clear 100, Estimated GFR 155, Est GFR ( Amer) 188 D, Glucose 89 D, Calcium 7.9 L I & O for Last 24 hours: Intake & Output 08/27/18 08/28/18 08/29/18 08/30/18 23:59 23:59 23:59 23:59 Intake Total 3403 / 3403 3360 / 3360 2106 / 2106 4490 / 4490 Output Total 800 / 800 2200 / 2200 4650 / 4650 Balance 2603 / 2603 1160 / 1160 -2544 / -2544 4490 / 4490 Weight 44.934 kg 44.254 kg 43.12 kg 43.545 kg Microbiology Reports for the Last 24 Hours: Microbiology 08/28/18 09:20 Sputum - Expectorated Sputum Gram Stain - Final 08/28/18 09:20 Sputum - Expectorated Sputum Sputum Culture - Preliminary Narrative: Cachectic, chronically ill appearing Alert and oriented x3 Rate and rhythm regular. No LE edema Scattered wheezes, diminished air movement Abdomen sunken, tender epigastric region, Normoactive BS Assessment and Plan (1) Abdominal pain, epigastric Current visit: Yes Status: Acute Category: Medical Code(s): R10.13 - Epigastric pain (2) Weight loss Current visit: Yes Status: Acute Category: Medical Code(s): R63.4 - Abnormal weight loss (3) Cachexia Current visit: Yes Status: Acute Category: Medical Code(s): R64 - Cachexia (4) Pneumonia Current visit: Yes Status: Acute Qualifiers: Pneumonia type: due to unspecified organism Laterality: right Lung location: lower lobe of lung Qualified Code(s): J18.1 - Lobar pneumonia, unspecified organism Category: Medical Code(s): J18.9 - Pneumonia, unspecified organism (5) Acute and chronic respiratory failure Current visit: Yes Status: Acute Category: Medical Code(s): J96.20 - Acute and chronic respiratory failure, unspecified whether with hypoxia or hypercapnia (6) Confusion Current visit: Yes Status: Acute Category: Medical Code(s): R41.0 - Disorientation, unspecified (7) Dyspnea Current visit: Yes Status: Acute Category: Medical Code(s): R06.00 - Dys pnea, unspecified (8) Pulmonary mass Current visit: Yes Status: Acute Category: Medical Code(s): R91.8 - Other nonspecific abnormal finding of lung field (9) Severe protein-calorie malnutrition Current visit: Yes Status: Acute Category: Medical Code(s): E43 - Unspecified severe protein-calorie malnutrition (10) Hypokalemia Current visit: Yes Status: Acute Category: Medical Code(s): E87.6 - Hypokalemia - Assessment and plan all Dx Assessment and Plan for all problems:: GI consulted today. Taken for EGD. Jejunal feeding tube placed by surgery during procedure. Initiated on tube feeds. Nutrition consult placed to assist with optimal nutrition supplementation. Patient too ill for surgical fixation of SMA, will attempt to promote weight gain through supplemental feeds to decre ase patient's symptomatology. Continue oxycodone for pain control with intermittent as needed morphine. Pending tolerance of tube feeds, plan for discharge sometime this weekend.
--- NOTE | 2018-08-31 08:55 | Progress Note ---
Subjective Patient reports: no new complaints Exam Vital signs and Labs for Last 24 Hours: Temp Pulse Resp BP Pulse Ox 98.1 F 88 20 106/58 L 90 L 08/31/18 08:00 08/31/18 08:00 08/31/18 08:00 08/31/18 08:00 08/31/18 08:00 I & O for Last 24 hours: Intake & Output 08/28/18 08/29/18 08/30/18 08/31/18 11:59 11:59 11:59 11:59 Intake Total 4490 / 4490 1766 / 1766 4420 / 4420 5356 / 5356 Output Total 1600 / 1600 3250 / 3250 2400 / 2400 Balance 2890 / 2890 -1484 / -1484 2019 5356 / 5356 Weight 97 lb 9 oz 95 lb 1 oz 96 lb 94 lb Microbiology Reports for the Last 24 Hours: Microbiology 08/28/18 09:20 Sputum - Expectorated Sputum Gram Stain - Final 08/28/18 09:20 Sputum - Expectorated Sputum Sputum Culture - Final Yeast - Constitutional no acute distress - *Routine Abdominal Exam Present: soft Comments: PEJ tube in place with no erythema or sign of complication Progress Note: A&P (1) Abdominal pain, epigastric Status: Acute Current Visit: Yes (2) Weight loss Status: Acute Assessment and plan: Suspected outflow jejunal partial obstruction secondary to SMA compression. Distal jejunal feeding tube in place (placed by gastroenterology yesterday) Okay from surgical standpoint for discharge home with ongoing jejunal feeding and close outpatient follow-up Current Visit: Yes (3) Cachexia Status: Acute Current Visit: Yes (4) Pneumonia Status: Acute Current Visit: Yes (5) Acute and chronic respiratory failure Status: Acute Current Visit: Yes (6) Confusion Status: Acute Current Visit: Yes (7) Dyspnea Status: Acute Current Visit: Yes (8) Pulmonary mass Status: Acute Current Visit: Yes (9) Severe protein-calorie malnutrition Status: Acute Current Visit: Yes (10) Hypokalemia Status: Acute Current Visit: Yes
--- NOTE | 2018-08-31 09:07 | Discharge Summary ---
General - General Admission date:: 08/26/18 Discharge date: 08/31/18 HPI HPI: 58-year-old white female with end-stage COPD, oxygen requiring and baseline pulmonary cachexia, who came to my office today with a 3-week history of increasing right upper quadrant pain and increasing epigastric pain that has caused her to essentially stopped eating over the past couple of weeks. She reports extremely minimal intake of food, occasional water drinking, but increasing epigastric pain and weight loss secondary to the above etiology. In the office she was found to have lost over 10% of her body weight over the past couple of months, significant atrophy of tissue and muscle wasting noted, as well as evidence of dehydration and low blood pressure. She was admitted for further evaluation, CT scanning, labs and hydration. Hospital Course Hospital Course: Patient was admitted to the hospital and underwent a significant workup: 1. Given weight loss and significant abdominal pain CT scan of chest/abdomen/pelvis was obtained which showed evidence of acute bronchopneumonia as well as her advanced COPD as well as some new lesions with spiculated calcifications concerning for possible malignancy-given her current weight loss and nutritional status workup for pulmonary issues will be put on hold until this improves. 2. CT scan of abdomen showed enlarged biliary and pancreas ducts which prompted MRCP to rule out pancreas or biliary tract masses or obstruction. Fortunately, this was negative with no evidence of pancreas or biliary ductal obstruction. 3. Because of patient's ongoing pain with eating and severe epigastric pain upper GI with small bowel follow-through was done which showed evidence of SMA syndrome effect with increasing spasm and abnormalities of the duodenum. 4. This prompted GI consultation and Dr. Murrieta recommended jejunal feeding tube placement which was accomplished early yesterday morning. Patient has tolerated these feeds overnight and feels much better with better energy levels and no pain. She does note that when she attempts to do solid food orally she has severe epigastric pain. Patient has been arranged to have home health for ongoing continuous infusion feeds for through her jejunostomy tube. Plan will be as follows: 1. Discharge today with jejunal feedings, supervised by home health agency which has been arranged by our care management folks. 2. P.o. antibiotics for bronchopneumonia treatment will be finished. 3. I will see her in the office on Sunday with labs to monitor her hypokalemia and hypocalcemia-which have improved in the hospital and hopefully with good/better nutrition will resolve. 4. Surgical follow-up will be arranged and once patient feels better/gains weight we will discussed further workup of SMA syndrome issues and her need for pulmonary evaluation for the pulmonary masses. Objective Vital signs: Temp Pulse Resp BP Pulse Ox 98.1 F 88 20 106/58 L 90 L 08/31/18 08:00 08/31/18 08:00 08/31/18 08:00 08/31/18 08:00 08/31/18 08:00 Narrative: Patient is pleasant, talkative, states that she feels better. Appears better hydrated. Oropharynx clear. No JVD. Lungs have poor air movement but no crackles or rhonchi today. Heart rate regular. Abdomen is soft, J-tube looks to be in good position. Patient wearing binder. Extremities have evidence of recent weight loss and skin tenting and poor skin turgor but improved over admission and no evidence of cyanosis or clubbing. DS: Diagnosis - Discharge Diagnosis (1) Abdominal pain, epigastric Status: Resolved (2) Weight loss Status: Chronic (3) Cachexia Status: Chronic (4) Pneumonia Status: Acute (5) Acute and chronic respiratory failure Status: Resolved (6) Confusion Status: Resolved (7) Dyspnea Status: Resolved (8) Pulmonary mass Status: Acute (9) Severe protein-calorie malnutrition Status: Acute (10) Hypokalemia Status: Acute (11) SMAS (superior mesenteric artery syndrome) Status: Acute Discharge Plan - Patient Discharge Instructions ACTIVITY: Continue current activity DIET: other (Tube feedings as prescribed,) Patient Instructions: Weight Loss, Undesired (Alternative Therapy), Pneumonia- Adult, DI for Abdominal Pain-Adult, DI for Respiratory Failure, How to Use Your Feeding Tube - Follow up Plan Follow up with: Solo Vargas MD [Primary Care Provider] - 09/04/18 Disposition: Home Health Service Home Medications: Home Medications Medication Instructions Recorded Confirmed Type Albuterol Sulfate [Albuterol HFA 1 - 2 puffs IH Q4-6H PRN 02/02/18 08/26/18 History Inhaler] Albuterol Sulfate [Albuterol 3 ml IH Q6H 05/18/18 08/27/18 History 0.083% 2.5mg/3mL neb] Fluticasone Propionate [Flonase 1 spr NS DAILYP PRN 05/18/18 08/27/18 History 50mcg nasal spray 16gm] Aspirin [Aspir 81] 81 mg PO DAILY 06/12/18 08/26/18 History Pantoprazole Sodium [Protonix 40mg 40 mg PO DAILY 06/12/18 08/26/18 History tablet] Topiramate 50 mg PO DAILY 06/12/18 08/26/18 History Buspirone HCl [Buspar 5mg tablet] 5 mg PO BID 08/26/18 08/26/18 History Loratadine [Claritin 10mg Tablet] 10 mg PO DAILY 08/26/18 08/26/18 History Umeclidinium Brm/Vilanterol Tr 1 puff IH DAILY 08/26/18 08/27/18 History [Anoro Ellipta 62.5-25 Mcg INH] dimenhyDRINATE [Dramamine] 25 mg PO DAILY 08/26/18 08/26/18 History Cefdinir [Omnicef 300mg Capsule] 300 mg PO BID #4 cap 08/31/18 Rx Prescriptions/Medication Reconciliation: New Cefdinir [Omnicef 300mg Capsule] 300 mg PO BID #4 cap Continue Albuterol Sulfate [Albuterol HFA Inhaler] 1 - 2 puffs IH Q4-6H PRN PRN Reason: Shortness Of Breath Or Wheezing Fluticasone Propionate [Flonase 50mcg nasal spray 16gm] 1 spr NS DAILYP PRN PRN Reason: allergies Albuterol Sulfate [Albuterol 0.083% 2.5mg/3mL neb] 3 ml IH Q6H Topiramate 50 mg PO DAILY Aspirin [Aspir 81] 81 mg PO DAILY Loratadine [Claritin 10mg Tablet] 10 mg PO DAILY Pantoprazole Sodium [Protonix 40mg tablet] 40 mg PO DAILY Umeclidinium Brm/Vilanterol Tr [Anoro Ellipta 62.5-25 Mcg INH] 1 puff IH DAILY Discontinued Buspirone HCl [Buspar 5mg tablet] 5 mg PO BID dimenhyDRINATE [Dramamine] 25 mg PO DAILY Other Amb Orders: Basic Metabolic Panel Time Frame: 09/04/18, Location: None Selected Complete Blood Count Auto Diff Time Frame: 09/04/18, Location: None Selected
== END 2018-08-31 11:00 | disposition home health service (06) | DRG 393 ==
LOC: 2ND → OBSVTOIN 15:31
PROVIDERS: ADMIT Internal Medicine Adolescent Medicine; ATTEND Internal Medicine Adolescent Medicine
CPT/HCPCS: 36415; 70551; 71020; 71046; 71260; 74000; 74018; 74178; 74181; 74241; 76376; 80048; 80053; 81001; 83735; 85025; 87070; 87205; 93005; 93306; 94640; 94761; J2405; J2543; Q9967

== ENCOUNTER → 2018-09-04 11:44 | Outpatient (CLI) | payer MEDICAID, SELFPAY ==
[2018-09-04 12:32] LABS: Basophils # 0.1 K/mm3 (0-0.2); Basophils % 0.7 % (0.1-2.0); Eosinophils # 0.2 K/mm3 (0.0-0.4); Eosinophils % 2.3 % (0.1-12.0); Hematocrit 48.3 % (37.0-47.0); Hemoglobin 14.9 g/dL (12.2-16.2); Lymphocytes # 2.5 K/mm3 (0.7-4.5); Lymphocytes % 27.5 % (10-50); Mean Corpuscular HGB Conc 30.8 g/dL (31.8-35.4); Mean Corpuscular Volume 100.6 fl (81-99); Mean Platelet Volume 7.9 fl (7.4-10.4); Monocytes # 0.5 K/mm3 (0.1-1.0); Monocytes % 5.8 % (1.7-9.3); Neutrophils # 5.8 K/mm3 (1.8-7.8); Neutrophils % 63.7 % (37.0-80.0); Platelet Count 989 K/mm3 (142-424); Red Cell Distribution Width 15.3 % (11.5-17.5); White Blood Count 9.1 K/mm3 (4.8-10.8)
[2018-09-04 14:39] LABS: Anion Gap 15.8 mEq/L (5-15); Blood Urea Nitrogen 15 mg/dL (7-18); Calcium 9.7 mg/dL (8.5-10.1); Carbon Dioxide 28 mmol/L (21.0-32.0); Chloride 101 mmol/L (98-107); Creatinine,Serum 0.59 mg/dL (0.55-1.02); Estimated Glomerular Filt Rate 105 ml/min (>60); GFR (African American) 127 ML/MIN (>60); Glucose 81 mg/dL (74-106); Sodium 139 mmol/L (136-145)
[2018-09-04 14:41] LABS: Potassium 5.8 mmoL/L (3.5-5.1)
== END ==
PROVIDERS: Visit Provider Internal Medicine Adolescent Medicine
DX: J18.9 Pneumonia, unspecified organism (principal)
CPT/HCPCS: 36415; 80048; 85025

== ENCOUNTER → 2018-10-02 15:49 | Outpatient (CLI) | payer MEDICAID, SELFPAY ==
[2018-10-02 16:51] LABS: Basophils # 0.1 K/mm3 (0-0.2); Basophils % 0.8 % (0.1-2.0); Eosinophils # 0.4 K/mm3 (0.0-0.4); Eosinophils % 3.7 % (0.1-12.0); Hematocrit 45.7 % (37.0-47.0); Hemoglobin 14.7 g/dL (12.2-16.2); Lymphocytes # 3.8 K/mm3 (0.7-4.5); Mean Corpuscular HGB Conc 32.3 g/dL (31.8-35.4); Mean Corpuscular Hemoglobin 31.8 pg (27.0-31.2); Mean Corpuscular Volume 98.6 fl (81-99); Mean Platelet Volume 8.1 fl (7.4-10.4); Monocytes # 0.5 K/mm3 (0.1-1.0); Monocytes % 4.8 % (1.7-9.3); Neutrophils # 6.4 K/mm3 (1.8-7.8); Neutrophils % 56.8 % (37.0-80.0); Platelet Count 369 K/mm3 (142-424); Red Blood Count 4.63 M/mm3 (4.20-5.40); Red Cell Distribution Width 14.7 % (11.5-17.5); White Blood Count 11.2 K/mm3 (4.8-10.8)
[2018-10-02 19:03] LABS: Alanine Aminotransferase 24 U/L (12-78); Albumin Level 3.9 gm/dL (3.4-5.0); Albumin/Globulin Ratio 1.1 (1.1-1.8); Alkaline Phosphatase 83 U/L (46-116); Aspartate Amino Transferase 16 U/L (15-37); Bilirubin,Total 0.3 mg/dL (0.2-1.0); Blood Urea Nitrogen 14 mg/dL (7-18); Calcium 9.6 mg/dL (8.5-10.1); Carbon Dioxide 29 mmol/L (21.0-32.0); Chloride 105 mmol/L (98-107); Creatinine,Serum 0.51 mg/dL (0.55-1.02); Estimated Glomerular Filt Rate 124 ml/min (>60); GFR (African American) 150 ML/MIN (>60); Globulin 3.6 gm/dl (1.3-3.2); Glucose 89 mg/dL (74-106); Sodium 143 mmol/L (136-145); Total Protein,Serum 7.5 gm/dL (6.4-8.2)
== END ==
PROVIDERS: Visit Provider Internal Medicine Adolescent Medicine
DX: K55.1 Chronic vascular disorders of intestine (principal); J43.1 Panlobular emphysema
CPT/HCPCS: 36415; 80053; 85025

== ENCOUNTER → 2018-10-17 15:21 | Outpatient (CLI) | payer MEDICAID, SELFPAY ==
--- NOTE | 2018-10-17 15:25 | CT_ITS ---
CT angio chest Ordering Physician: Alessandro Pinzon MD Patient Age: 58 years: Female HISTORY: ITS.REASON: xdyspnea. Short of breath. Elevated heart rate. 58-year-old TECHNIQUE: IV contrast bolus: 70 cc Optiray 350 cc 4.6 cc a second, followed x 40 mL normal saline bolus. . thin section helical CT scanning performed through the chest... Thickened Axial along with thick mipp sagittal and coronal reconstructions performed on CT workstation. All CT scans at this facility used one or more dose reduction techniques , viz: automatic exposure control, ma/Kv adjustment per patient's size, (including targeted exam where dose matched to the indication; i.e. head); or iterative reconstruction technique COMPARISON : 08/26/2018 CT chest with contrast & 3-16 CT chest FINDINGS: Pulmonary arteries:. No pulmonary embolism identified Aortic arch appears satisfactory. Underlying COPD and centrilobular emphysematous changes again observed. Prominence of interstitium with hyperexpansion and slight attenuation of pulmonary vessels. . mild airway thickening bilaterally again noted reflecting likely chronic bronchitis features In August 21, 2018, patient had a large area/prominent density & consolidation at the RML; as well as a smaller peripheral area of density in consolidation at the lingula.. Both These regions have shown marked improvement but with minimal residual pulmonary density-reflecting residual scarring. However I would recommend ongoing follow-up better exclude any unlikely underlying lesion.. The right hilar adenopathy previously seen is also shown regression with only very slight scant residual generous soft tissue appearance to the anterior aspect right hilum. . Several previously seen round patchy area of infiltrate density at the left lower lobe have shown interval regression. No suspicious lung nodule at left lower lobe today. Only scant residual scarring in these regions.. ---- Only note progression of density anteriorly at the right mid & lower lung field linear scarring was seen in this area dating back to 2016 with slight additional thickening or fluid along this region of scarring where it abuts the pleura anteriorly. This yields a slightly nodular appearance is seen on axial image 60, coronal 11-with triangular focal soft tissue density here measuring 20 mm length. Heart is normal in size no pericardial effusion.. Subcarinal lymph node again observed and no larger and axial. Slightly smaller than August 21, 2018.. Also nodes in the pretracheal region of are decreased in size. IMPRESSION: 1. No pulmonary wasn't evident Aorta appears satisfactory as well. 2. COPD and central lobar emphysematous changes. Mild airway thickening again noted suggesting likely chronic bronchitis features as well 3. Overall improvement since August -When compared to the August 2018 CT chest there is been marked improvement in of the large area of consolidation at the right middle lobe and smaller area at the anterior lingula. Numerous other areas and small patchy foci of infiltrate at LLL & RLL. Have shown improvement as well.. -Marked improvement and regression of the right hilar adenopathy since August as well. Enlarged Mediastinal nodes appears stable to slightly improved. Would benefit from follow-up as well 4. Area of progressive density anterior L UL since August. Warrants follow-up: . This longitudinal area Increased soft tissue density today, following along area of previous scarring at anterior L UL.- This could reflect minimal fluid or additional inflammatory changes in this region... Specifically would note additional triangular soft tissue density seen in this region related to this process, measuring 20 x 11 mm . Again, favor most likely related to infl
== END ==
PROVIDERS: PCP Internal Medicine Adolescent Medicine; Visit Provider Internal Medicine Cardiovascular Disease
DX: I25.10 Atherosclerotic heart disease of native coronary artery without angina pectoris (principal); R00.0 Tachycardia, unspecified; R06.02 Shortness of breath; R94.31 Abnormal electrocardiogram [ECG] [EKG]; J44.9 Chronic obstructive pulmonary disease, unspecified
CPT/HCPCS: 71275; Q9967

== ENCOUNTER → 2018-12-09 14:48 | Outpatient (CLI) | payer MEDICAID, SELFPAY ==
[2018-12-09 15:35] LABS: Basophils # 0.1 K/mm3 (0-0.2); Basophils % 0.9 % (0.1-2.0); Eosinophils # 0.3 K/mm3 (0.0-0.4); Eosinophils % 2.8 % (0.1-12.0); Hematocrit 49.9 % (37.0-47.0); Hemoglobin 15.5 g/dL (12.2-16.2); Mean Corpuscular Hemoglobin 32.6 pg (27.0-31.2); Mean Platelet Volume 7.7 fl (7.4-10.4); Monocytes # 0.4 K/mm3 (0.1-1.0); Neutrophils # 5.7 K/mm3 (1.8-7.8); Neutrophils % 54.2 % (37.0-80.0); Platelet Count 506 K/mm3 (142-424); Red Blood Count 4.76 M/mm3 (4.20-5.40); Red Cell Distribution Width 14.3 % (11.5-17.5); White Blood Count 10.6 K/mm3 (4.8-10.8)
[2018-12-09 16:43] LABS: Alanine Aminotransferase 29 U/L (12-78); Albumin Level 3.6 gm/dL (3.4-5.0); Albumin/Globulin Ratio 1.2 (1.1-1.8); Alkaline Phosphatase 87 U/L (46-116); Anion Gap 11.4 mEq/L (5-15); Aspartate Amino Transferase 18 U/L (15-37); Bilirubin,Total 0.4 mg/dL (0.2-1.0); Blood Urea Nitrogen 14 mg/dL (7-18); Calcium 9.2 mg/dL (8.5-10.1); Carbon Dioxide 32 mmol/L (21.0-32.0); Chloride 103 mmol/L (98-107); Creatinine,Serum 0.58 mg/dL (0.55-1.02); Estimated Glomerular Filt Rate 107 ml/min (>60); GFR (African American) 129 ML/MIN (>60); Globulin 3.1 gm/dl (1.3-3.2); Glucose 100 mg/dL (74-106); Potassium 4.4 mmoL/L (3.5-5.1); Sodium 142 mmol/L (136-145); Total Protein,Serum 6.7 gm/dL (6.4-8.2)
[2018-12-11 14:42] LABS: Alpha-1-Antitrypsin 128 mg/dL (90-200)
== END ==
PROVIDERS: Visit Provider Internal Medicine Adolescent Medicine
DX: K86.81 Exocrine pancreatic insufficiency (principal)
CPT/HCPCS: 36415; 80053; 82103; 85025

== ENCOUNTER → 2019-05-08 13:06 | Outpatient (CLI) | payer OTHER, SELFPAY ==
--- NOTE | 2019-05-08 13:07 | CA_ITS ---
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 States a knot appeared 1 week after procedure. This knot is still present. Conclusion No evidence of AV fistula or pseudoaneurysm seen in the right wrist. Electronically signed by : Getachew Vega MD 05/08/2019 18:17:12
== END ==
PROVIDERS: PCP Internal Medicine Adolescent Medicine; Visit Provider Nurse Practitioner Family
DX: M25.531 Pain in right wrist (principal); E78.5 Hyperlipidemia, unspecified; I25.10 Atherosclerotic heart disease of native coronary artery without angina pectoris; R00.0 Tachycardia, unspecified; R06.02 Shortness of breath; Z86.711 Personal history of pulmonary embolism
CPT/HCPCS: 93931

== ENCOUNTER → 2019-05-12 14:58 | Outpatient (CLI) | payer OTHER, SELFPAY ==
[2019-05-12 15:29] LABS: Basophils # 0.1 K/mm3 (0-0.2); Basophils % 0.8 % (0.1-2.0); Eosinophils # 0.2 K/mm3 (0.0-0.4); Hematocrit 47.9 % (37.0-47.0); Hemoglobin 14.4 g/dL (12.2-16.2); Lymphocytes # 3.7 K/mm3 (0.7-4.5); Lymphocytes % 33.7 % (10-50); Mean Corpuscular Volume 106.7 fl (81-99); Mean Platelet Volume 7.6 fl (7.4-10.4); Monocytes # 0.5 K/mm3 (0.1-1.0); Monocytes % 4.2 % (1.7-9.3); Neutrophils # 6.5 K/mm3 (1.8-7.8); Neutrophils % 59.4 % (37.0-80.0); Platelet Count 493 K/mm3 (142-424); Red Blood Count 4.49 M/mm3 (4.20-5.40); White Blood Count 10.9 K/mm3 (4.8-10.8)
[2019-05-12 18:20] LABS: Alanine Aminotransferase 14 U/L (12-78); Albumin Level 3.8 gm/dL (3.4-5.0); Albumin/Globulin Ratio 1.3 (1.1-1.8); Alkaline Phosphatase 85 U/L (46-116); Anion Gap 14.2 mEq/L (5-15); Aspartate Amino Transferase 8 U/L (15-37); Bilirubin,Total 0.3 mg/dL (0.2-1.0); Blood Urea Nitrogen 13 mg/dL (7-18); Calcium 9.1 mg/dL (8.5-10.1); Carbon Dioxide 29 mmol/L (21.0-32.0); Chloride 106 mmol/L (98-107); Creatinine,Serum 0.56 mg/dL (0.55-1.02); Estimated Glomerular Filt Rate 111 ml/min (>60); GFR (African American) 134 ML/MIN (>60); Glucose 90 mg/dL (74-106); Potassium 4.2 mmoL/L (3.5-5.1); Sodium 145 mmol/L (136-145); Total Protein,Serum 6.8 gm/dL (6.4-8.2)
[2019-05-14 15:30] LABS: Vitamin D 25 Hydroxy 9.4 ng/mL (30.0-100.0)
== END ==
PROVIDERS: Visit Provider Internal Medicine Adolescent Medicine
DX: E43 Unspecified severe protein-calorie malnutrition (principal); K86.81 Exocrine pancreatic insufficiency
CPT/HCPCS: 36415; 80053; 82652; 85025

== ENCOUNTER 2019-08-02 19:51 | Observation (INO) ==
[2019-08-02 20:15] LABS: Basophils # 0.1 K/mm3 (0-0.2); Eosinophils # 0.2 K/mm3 (0.0-0.4); Eosinophils % 2.3 % (0.1-12.0); Hematocrit 44.8 % (37.0-47.0); Hemoglobin 14.4 g/dL (12.2-16.2); Lymphocytes # 3.7 K/mm3 (0.7-4.5); Lymphocytes % 35.4 % (10-50); Mean Corpuscular HGB Conc 32.1 g/dL (31.8-35.4); Mean Corpuscular Volume 101.3 fl (81-99); Mean Platelet Volume 7.4 fl (7.4-10.4); Monocytes # 0.5 K/mm3 (0.1-1.0); Monocytes % 5.3 % (1.7-9.3); Neutrophils # 5.8 K/mm3 (1.8-7.8); Platelet Count 466 K/mm3 (142-424); Red Blood Count 4.42 M/mm3 (4.20-5.40); Red Cell Distribution Width 13.3 % (11.5-17.5); White Blood Count 10.3 K/mm3 (4.8-10.8)
--- NOTE | 2019-08-02 20:25 | Emergency Department Note ---
ED Disposition Clinical Impression: Acute exacerbation of chronic obstructive airways disease Chest pain Qualifiers: Chest pain type: precordial pain Qualified Code(s): R07.2 - Precordial pain Disposition: Admitted as Observation Condition on Discharge: Good - Critical Care Critical Care Time: No Attestation: On 08/02/19, the high probability of a clinically significant, sudden or life threatening deterioration of the following system(s) required my full and direct attention, intervention and personal management. The time I documented below is in addition to time spent performing reported procedures but includes the following listed in this critical care notation. Medical Decision Making - Medical Records Medical records reviewed: Yes: I reviewed the patient's medical records. - Nick Inquiry Pt receiving controlled substance: No Vital Signs: 08/02/19 20:07 Temperature 98.2 F Temperature Source Oral Pulse Rate [Right Brachial] 69 Respiratory Rate 16 Blood Pressure [Right Arm] 116/79 Blood Pressure Mean [Right Arm] 91 Blood Pressure Source [Right Arm] Automatic Cuff Blood Pressure Position [Right Arm] Sitting 02 Sat by Pulse Oximetry 97 Oxygen Delivery Method Room Air - Lab Data Lab results reviewed: Yes: I reviewed the patient's lab results. Lab Results 08/02/19 20:06: WBC 10.3, RBC 4.42, Hgb 14.4, Hct 44.8, MCV 101.3 H, MCH 32.5 H, MCHC 32.1, RDW 13.3, Plt Count 466 H, MPV 7.4, Neut % (Auto) 56.0, Lymph % (Auto) 35.4, [place] % (Auto) 5.3, Eos % (Auto) 2.3, Baso % (Auto) 1.0, Neut # (Auto) 5.8, Lymph # (Auto) 3.7, [place] # (Auto) 0.5, Eos # (Auto) 0.2, Baso # (Auto) 0.1 08/02/19 20:06: Sodium 142, Potassium 3.8, Chloride 102, Carbon Dioxide 32 H, Anion Gap 11.8, BUN 13, Creatinine 0.40 L, Estimated Creat Clear 163, Estimated GFR 163, Est GFR ( Amer) 198, Glucose 118 H, Calcium 9.7, Troponin I < 0.01 08/02/19 20:06: Influenza Type A Ag Negative, Influenza Type B Ag Negative 08/02/19 20:31: Specimen Source R/r, O2 % 2.5, ABG pH 7.37, ABG pCO2 52.2 H, ABG pO2 85.6, ABG HCO3 29.7 H, ABG Total CO2 31.3 H, ABG O2 Saturation 96, ABG Base Excess 4.5 H, Getachew Test Y Result diagrams: 08/02/19 20:06 08/02/19 20:06 Orders (Tests/Meds): ED MEDICATIONS Generic Name Dose Route Start Last Admin Trade Name Freq PRN Reason Stop Dose Admin Levofloxacin/Dextrose 750 mg in 150 mls @ 100 mls/hr 08/02/19 21:00 Levofloxacin 750mg/150ml Premix IV 08/16/19 20:59 Q24H PRAVIN Protocol Discontinued Medications Generic Name Dose Route Start Last Admin Trade Name Freq PRN Reason Stop Dose Admin Methylprednisolone Sodium Succinate 125 mg 08/02/19 20:31 08/02/19 21:00 Solu-Medrol 125mg/2ml Vial IV 08/02/19 20:32 125 mg ONCE ONE Administration Nitroglycerin 0.5 gm 08/02/19 20:27 08/02/19 21:00 Nitroglycerin 1 Inch Oint Udp TD 08/02/19 20:28 0.5 gm ONCE ONE Administration ORDERS Category Date Time Status XR chest portable Stat Exams 08/02/19 19:52 Taken Troponin I Q3H Lab 08/02/19 23:00 Ordered Troponin I Q3H Lab 08/03/19 02:00 Ordered ABG PH Stat RT 08/02/19 20:14 Ordered - Radiology Data #1 Image(s): Chest Image Reviewed: Yes I reviewed the patient's radiology image Preliminary Findings: Abnormal (copd) - ECG Data Tracing #1 Normal Sinus Rhythm: Yes Ischemic changes: non-specific ST-T wave changes Chest Pain HPI - General Chief Complaint: Dizziness Stated Complaint: cp Time Seen by Provider: 08/02/19 20:05 Mode of Arrival: Family Vehicle Source of Information: Patient, Spouse, Medical Record Limitations: No Limitations Description of Symptoms (Recalled from ER Triage Doc. by RN): pt states has had multiple days of headaches, and dizziness, became concerned with chest discomfort and left rib area pain. reports possible left arm pain for patient that she can't remember. - History of Present Illness HPI narrative: over the last 3 days has had progressive sob with plumbers and top helpers cough and also ant chest tightness with rad lt upper ext - pt reports this pain is new had card cath 10/20- report reviewed MD complaint: chest pain indicative of cardiac Onset (ago): day(s) Duration: intermittent Activity at onset: during rest Pain location: substernal Severity: moderate Quality: tightness Pain radiation: LUE Associated symptoms: nausea, dyspnea Risk Factors for CAD: Hypertension, Family Hx of CAD, Smoking Treatments prior to or on arrival for Cardiac Chest Pain: none - SONIA Score for Non-Stemi Age of Patient: 50-59 years old Heart Rate: 50-69 bpm Systolic Blood Pressure: 100-119 mmHg Serum Creatinine: 0.40-0.79 mg/dl CHF Killip Class: I-No CHF Other Risk Factors: None Non-Stemi Risk Score: 91 - Related Data Prior Cardiac Testing/Procedures: Cardiac Angiogram On Oral Contraceptives: No Home Medications Medication Instructions Recorded Confirmed Albuterol Sulfate [Albuterol HFA 1 - 2 puffs IH Q4-6H PRN 02/02/18 05/21/19 Inhaler] Albuterol Sulfate [Albuterol 3 ml IH Q6H 05/18/18 05/21/19 0.083% 2.5mg/3mL neb] Aspirin [Aspir 81] 81 mg PO DAILY 06/12/18 05/21/19 Loratadine [Claritin 10mg Tablet] 10 mg PO DAILY 08/26/18 05/21/19 Umeclidinium Brm/Vilanterol Tr 1 puff IH DAILY 08/26/18 05/21/19 [Anoro Ellipta 62.5-25 Mcg INH] dilTIAZem HCl [Diltiazem 180mg 180 mg PO DAILY 04/14/19 05/21/19 24Hr ER Cap] [id number] 1 cap PO TID #100 cap 04/30/19 05/21/19 40,000-126,000-168,000 unit capsule, delay rel ranitidine HCl 150 mg tablet 150 mg PO BID #60 tab 04/30/19 05/21/19 Previous Rx's Medication Instructions Recorded metoprolol succinate 25 mg 25 mg PO DAILY #30 tab 04/30/19 tablet,extended release 24 hr Allergies Allergy/AdvReac Type Severity Reaction Status Date / Time erythromycin base Allergy Intermediate I-RASH Verified 04/30/19 11:23 [ERYTHROMYCIN BASE] [facility] History - Hepatitis A Screen Drug use history?: No High risk sexual behaviors?: No History of sexually transmitted infection?: No Currently employed?: No Childcare worker?: No Do you have indoor plumbing?: Yes Do you have electricity?: Yes Attestation statement:: This patient has been screened for Hepatitis A risk factors. I have reviewed the patient's past medical history: Yes Medical History: Reports:: Chronic Obstructive Pulmonary Disease (COPD), Vincent ry Artery Disease, Hyperlipidemia, Palpitations Denies:: Cancer, Diabetes Mellitus Type 1, Diabetes Mellitus Type 2, MRSA Other Medical History: Reports: Anemia, Fibromyalgia, Sinus Problems Laterality Cases: Right: Other Other Surgeries: Yes: No Previous Surgery, Appendectomy, Cardiac Surgery, Colonoscopy, Hysterectomy-Total, Splenectomy, Tubal Ligation, Other Amputation: No Fractures: No Comment: neck plates, spleen removal,bypass - Social History Smoking Status: Current every day smoker Tobacco Type: cigarettes # Packs/Day (cigarettes): 1 #Yrs smoked (if former smoker): 40 Alcohol Intake: never Substance Use Type: denies use Occupational Status: disabled Housing: house Household Members: spouse, family Family Hx:: Anemia, Cancer, Hyperlipidemia, Hypertension ROS Obtained: Yes All systems reviewed & no additional complaints - Constitutional Constitutional: Denies fever(s), Reports weakness - Eyes Eyes: Denies change in vision - ENT Ears, Nose, Mouth, and Throat: Denies vertigo/dizziness - Cardiovascular Cardiovascular: Reports chest pain at rest, Reports dyspnea - Respiratory Respiratory: No cough - Gastrointestinal Gastrointestingal: Denies: abdominal pain - Genitourinary Female Genitourinary: Denies hematuria - Musculoskeletal Musculoskeletal: Denies back pain - Integumentary/Breasts Skin/Breast: Denies rash - Neurologic Neurologic: Denies seizure-like activity Physical Exam - General General appearance: alert - Head Head exam: normocephalic - Eye Eye exam: Present: PERRL, EOMI. Absent: scleral icterus - ENT ENT exam: Present: mucous membranes dry - Neck Neck exam: Present: trachea midline - Respiratory Respiratory exam: Present: other (dec bs bilat ). Absent: respiratory distress - Cardiovascular Cardiovascular exam: Present: regular rate, systolic murmur, +S4 - Abdominal Exam Abdominal exam: Present: soft - Extremities Exam Extremities exam: Present: full ROM - Neurological Exam Neurological exam: Present: alert, oriented X3, CN II-XII intact - Psychiatric Psychiatric exam: Present: normal affect - Skin Skin exam: Absent: rash
[2019-08-02 20:27] LABS: Anion Gap 11.8 mEq/L (5-15); Blood Urea Nitrogen 13 mg/dl (7-17); Calcium 9.7 mg/dl (8.4-10.2); Carbon Dioxide 32 mmol/L (22.0-30.0); Chloride 102 mmol/L (98-107); Glucose 118 mg/dl (74-100); Sodium 142 mmol/L (136-145)
[2019-08-02 20:32] LABS: ABG Base Excess 4.5 mmol/L (-2.4-2.3); ABG HCO3 29.7 mmhg (22.0-26.0); ABG Oxygen Saturation 96 % (90-100); ABG PH 7.37 mmol/L (7.35-7.45); ABG PO2 85.6 mmhg (80-100); ABG TCO2 31.3 mmhg (23-27)
[2019-08-02 20:33] LABS: ABG PCO2 52.2 mmhg (35.0-45.0); Allen's Test Y; Oxygen 2.5 %
[2019-08-03 07:07] LABS: Basophils % 0.2 % (0.1-2.0); Eosinophils % 0.1 % (0.1-12.0); Hematocrit 40.9 % (37.0-47.0); Hemoglobin 13.1 g/dL (12.2-16.2); Lymphocytes # 0.9 K/mm3 (0.7-4.5); Mean Corpuscular Volume 100.5 fl (81-99); Mean Platelet Volume 7.6 fl (7.4-10.4); Monocytes # 0.1 K/mm3 (0.1-1.0); Monocytes % 0.9 % (1.7-9.3); Neutrophils # 6.1 K/mm3 (1.8-7.8); Neutrophils % 86.8 % (37.0-80.0); Platelet Count 427 K/mm3 (142-424); Red Blood Count 4.07 M/mm3 (4.20-5.40); Red Cell Distribution Width 13.2 % (11.5-17.5)
[2019-08-03 07:21] LABS: Anion Gap 10.2 mEq/L (5-15); Calcium 9.3 mg/dl (8.4-10.2); Chol/HDL Ratio 3.3 (1-3.5)
--- NOTE | 2019-08-03 07:39 | History & Physical Report ---
*Admission Date: 08/02/19 *Chief complaint: Shortness of breath and chest pain *History of present illness: 59-year-old female with COPD requiring continuous oxygen at 2-1/2 L/min, SMA syndrome, continued cigarette use presented to the emergency department with approximately 3 days of shortness of breath and chest heaviness. Patient reports beginning Sunday of this week she noticed chest discomfort and shortness of breath when ambulating. Initially she did not feel like there was any other change in her baseline. As 3 days progressed she did develop slight increase in cough with white sputum production. She denied fevers or chills. On the day of admission patient had associated dizziness with ambulating. As her symptoms did not seem to be improving she presented to the emergency department. In the emergency department work-up included EKG and troponin both of which were negative with EKG being in normal sinus rhythm without evidence of ischemia or infarct. Patient's chest x-ray appeared normal. Decision was made to admit for treatment of mild COPD exacerbation and rule out MT. Past medical history is significant for COPD for which patient is on supplemental oxygen via nasal cannula at 2 L/min. O2 sats on presentation to the ER were in the mid to high 90s on her home 2-1/2 L. Patient is undergone cardiovascular work-up as well with cardiac catheterization in October 2018 showing [id number] coronary artery disease. Patient was diagnosed with SMA syndrome in August of last year with subsequent placement of J-tube for tube feedings. Patient is been managing her tube feedings on her own and reports using Jevity 1.0 for anywhere from 12 to 14 hours at night. She is also decided to follow a vegetarian diet recently [facility] History I have reviewed the patient's past medical history: Yes Medical History: Reports:: Arrhythmia, Chronic Obstructive Pulmonary Disease (COPD), Coronary Artery Disease ([id number]), Hyperlipidemia, Palpitations Denies:: Cancer, Diabetes Mellitus Type 1, Diabetes Mellitus Type 2, MRSA *Have you ever received a pneumonia vaccine?: Yes *Have you received a flu vaccine this season?: Yes Other Medical History: Reports: Anemia, Arthritis, Fibromyalgia, Sinus Problems Comment:: SMA syndrome Laterality Cases: Right: Other Other Surgeries: Yes: No Previous Surgery, Appendectomy, Cardiac Surgery, Colonoscopy, Hysterectomy-Total, Splenectomy, Tubal Ligation, Other Amputation: No Fractures: Yes (l femur) - *Social History Educational Level: Attended High School Smoking Status: Current every day smoker Tobacco Type: cigarettes # Packs/Day (cigarettes): 1 #Yrs smoked (if former smoker): 40 Alcohol Intake: former Substance Use Type: denies use *Occupational Status:: disabled Housing: house Household Members: spouse, family *Travel in the last 8 weeks: None Family Hx:: Anemia, Cancer, Hyperlipidemia, Hypertension Review of Systems - Constitutional Reports anorexia, Denies body ache(s), Denies chills, Denies daytime sleepiness, Denies night sweats - *Cardiovascular Reports chest pain, Reports chest pain with activity, Denies chest pain at rest - *Respiratory Reports chest congestion, Reports cough, Reports shortness of breath, Reports shortness of breath with activity, Denies change in phlegm color, Denies coughing up blood - *Gastrointestinal Denies abdominal pain, Denies belching, Denies bloating - *Neurologic Reports weakness, Denies seizure-like activity, Denies dizziness Meds Home Medications Medication Instructions Recorded Confirmed Type Albuterol Sulfate [Albuterol HFA 1 - 2 puffs IH Q4-6H PRN 02/02/18 08/02/19 History Inhaler] Albuterol Sulfate [Albuterol 3 ml IH Q6H 05/18/18 08/02/19 History 0.083% 2.5mg/3mL neb] Aspirin [Aspir 81] 81 mg PO DAILY 06/12/18 08/02/19 History Loratadine [Claritin 10mg Tablet] 10 mg PO DAILY 08/26/18 08/02/19 History dilTIAZem HCl [Diltiazem 180mg 180 mg PO DAILY 04/14/19 08/02/19 History 24Hr ER Cap] [id number]-[id number] 1 cap PO TIDWM #100 cap 04/30/19 08/02/19 History 40,000-126,000-168,000 unit capsule, delay rel metoprolol succinate 25 mg 25 mg PO DAILY #30 tab 04/30/19 08/02/19 Rx tablet,extended release 24 hr ranitidine HCl 150 mg tablet 150 mg PO BID #60 tab 04/30/19 08/02/19 History Acetaminophen [Tylenol 325mg 487 mg PO BID 08/02/19 08/02/19 History Tablet] Fluticasone Propionate [Flonase 2 spr NS DAILY 08/02/19 08/02/19 History 50mcg nasal spray 16gm] Tiotropium Br/Olodaterol HCl 2 puffs IH DAILY 08/02/19 08/02/19 History [Stiolto Respimat Inhal [place]] Allergies Allergy/AdvReac Type Severity Reaction Status Date / Time erythromycin base Allergy Intermediate I-RASH Verified 04/30/19 11:23 [ERYTHROMYCIN BASE] Exam Vital signs and Labs for Last 24 Hours: Temp Pulse Resp BP Pulse Ox 98.3 F 82 17 96/57 L 92 L 08/03/19 04:00 08/03/19 06:11 08/03/19 04:00 08/03/19 04:00 08/03/19 06:11 Laboratory Results - last 24 hr 08/02/19 20:06: WBC 10.3, RBC 4.42, Hgb 14.4, Hct 44.8, MCV 101.3 H, MCH 32.5 H, MCHC 32.1, RDW 13.3, Plt Count 466 H, MPV 7.4, Neut % (Auto) 56.0, Lymph % (Auto) 35.4, [place] % (Auto) 5.3, Eos % (Auto) 2.3, Baso % (Auto) 1.0, Neut # (Auto) 5.8, Lymph # (Auto) 3.7, [place] # (Auto) 0.5, Eos # (Auto) 0.2, Baso # (Auto) 0.1 08/02/19 20:06: Sodium 142, Potassium 3.8, Chloride 102, Carbon Dioxide 32 H, Anion Gap 11.8, BUN 13, Creatinine 0.40 L, Estimated Creat Clear 163, Estimated GFR 163, Est GFR ( Amer) 198, Glucose 118 H, Calcium 9.7, Troponin I < 0.01 08/02/19 20:06: Influenza Type A Ag Negative, Influenza Type B Ag Negative 08/02/19 20:06: Lactate 1.4 08/02/19 20:31: Specimen Source R/r, O2 % 2.5, ABG pH 7.37, ABG pCO2 52.2 H, ABG pO2 85.6, ABG HCO3 29.7 H, ABG Total CO2 31.3 H, ABG O2 Saturation 96, ABG Base Excess 4.5 H, Getachew Test Y 08/02/19 22:50: Troponin I < 0.01 08/03/19 02:05: Troponin I < 0.01 08/03/19 06:20: WBC 7.0 D, RBC 4.07 L, Hgb 13.1, Hct 40.9, MCV 100.5 H, MCH 32.2 H, MCHC 32.0, RDW 13.2, Plt Count 427 H, MPV 7.6, Neut % (Auto) 86.8 H, Lymph % (Auto) 12.0, [place] % (Auto) 0.9 L, Eos % (Auto) 0.1, Baso % (Auto) 0.2, Neut # (Auto) 6.1, Lymph # (Auto) 0.9, [place] # (Auto) 0.1, Eos # (Auto) 0.0, Baso # (Auto) 0.0 08/03/19 06:20: Sodium 139, Potassium 4.2, Chloride 105, Carbon Dioxide 28, Anion Gap 10.2, BUN 16, Creatinine 0.40 L, Estimated Creat Clear 104, Estimated GFR 163, Est GFR ( Amer) 198, Glucose 156 H D, Calcium 9.3, Magnesium 1.7, Triglycerides 59, Cholesterol 151, LDL Cholesterol Direct 92.56 L, VLDL Cholesterol 12, HDL Cholesterol 46, Cholesterol/HDL Ratio 3.3 I & O for Last 24 hours: Intake & Output 07/31/19 08/01/19 08/02/19 08/03/19 11:59 11:59 11:59 11:59 Intake Total 440 / 440 Output Total 200 / 200 Balance 240 / 240 Weight 95 lb 8 oz Microbiology Reports for the Last 24 Hours: Microbiology 08/03/19 02:28 Sputum - Expectorated Sputum Gram Stain - Final Narrative: Thin female in no distress. Vapotherm is in place. She shows no signs of respiratory distress or increased work of breathing. Oropharynx is moist. Neck is thin and supple. Lungs have faint rhonchi at the left lung lateral lung, otherwise there are no wheezes or rales. Heart has a regular rate and rhythm. Abdomen is soft, nontender, nondistended. J-tube is in place. Extremities are warm to the touch. There is no lower leg or pedal edema. Neurologically there are no gross deficits Assessment and Plan (1) Chest pain Current visit: Yes Status: Acute Qualifiers: Chest pain type: precordial pain Qualified Code(s): R07.2 - Precordial pain Category: Medical Code(s): R07.9 - Chest pain, unspecified (2) SMAS (superior mesenteric artery syndrome) Current visit: No Status: Acute Category: Medical Code(s): K55.1 - Chronic vascular disorders of intestine (3) Severe protein-calorie malnutrition Current visit: No Status: Acute Category: Medical Code(s): E43 - Unspecified severe protein-calorie malnutrition (4) Chronic obstructive pulmonary disease (COPD) Current visit: No Status: Chronic Qualifiers: COPD type: unspecified COPD Qualified Code(s): J44.9 - Chronic obstructive pulmonary disease, unspecified Category: Medical Code(s): J44.9 - Chronic obstructive pulmonary disease, unspecified (5) Headache disorder Current visit: No Status: Chronic Category: Medical Code(s): R51 - Headache (6) Oxygen dependent Current visit: No Status: Chronic Category: Medical Code(s): Z99.81 - Dependence on supplemental oxygen (7) Pulmonary hypertension, moderate to severe Current visit: No Status: Chronic Category: Medical Code(s): I27.20 - Pulmonary hypertension, unspecified - Assessment and plan all Dx Assessment and Plan for all problems:: 1. Wean Vapotherm back to patient's nasal cannula at 2-1/2 L/min. 2. Patient is ruled out for MT and had normal EKG. 3. If patient can be weaned today and tolerates activity within her room without difficulties patient will may be discharged home later this evening
[2019-08-03 08:34] LABS: Lymphocytes % 13 % (10-50); Monocytes % 1 % (2-9); Neutrophils % 86 % (42-76); Total Cells Counted 100
[2019-08-03 08:35] LABS: Anisocytosis 1+; Macrocytosis 1+
--- NOTE | 2019-08-03 09:27 | Pharmacy Consult Notes ---
[facility] Pharmacy VTE Monitoring - Patient Demographics Admission date: 08/02/19 Report Date: 08/03/19 Time: 09:27 Allergies/Adverse Reactions: Patient Allergies erythromycin base [ERYTHROMYCIN BASE] Allergy (Intermediate, Verified 04/30/19 11:23) I-RASH Height: 1.57 m Weight: 43.318 kg Patient Problems: Current Active Problems Chest pain (Acute) Acute exacerbation of chronic obstructive airways disease (Acute) - VTE Risk Labs: VTE Related Lab Results Hgb 13.1 g/dL (12.2-16.2) 08/03/19 06:20 Hct 40.9 % (37.0-47.0) 08/03/19 06:20 Plt Count 427 K/mm3 (142-424) H 08/03/19 06:20 BUN 16 mg/dl (7-17) 08/03/19 06:20 Creatinine 0.40 mg/dl (0.52-1.04) L 08/03/19 06:20 Estimated Creat Clear 104 mL/min (50-200) 08/03/19 06:20 VTE Score: 9 VTE Risk Level: Moderate Risk - Prophylaxis VTE Prophylaxis Ordered?: Yes Types of VTE Prophylaxis: TEDS Knee High Location of Applied Device: Bilateral Lower Extremeties
--- NOTE | 2019-08-03 19:52 | Discharge Summary ---
General - General Admission date:: 08/02/19 Discharge date: 08/03/19 HPI HPI: 59-year-old female with COPD requiring continuous oxygen at 2-1/2 L/min, SMA syndrome, continued cigarette use presented to the emergency department with approximately 3 days of shortness of breath and chest heaviness. Patient reports beginning Sunday of this week she noticed chest discomfort and shortness of breath when ambulating. Initially she did not feel like there was any other change in her baseline. As 3 days progressed she did develop slight increase in cough with white sputum production. She denied fevers or chills. On the day of admission patient had associated dizziness with ambulating. As her symptoms did not seem to be improving she presented to the emergency department. In the emergency department work-up included EKG and troponin both of which were negative with EKG being in normal sinus rhythm without evidence of ischemia or infarct. Patient's chest x-ray appeared normal. Decision was made to admit for treatment of mild COPD exacerbation and rule out CA. Past medical history is significant for COPD for which patient is on supplemental oxygen via nasal cannula at 2 L/min. O2 sats on presentation to the ER were in the mid to high 90s on her home 2-1/2 L. Patient is undergone cardiovascular work-up as well with cardiac catheterization in October 2018 showing maq-hflg-amvkshhn coronary artery disease. Patient was diagnosed with SMA syndrome in August of last year with subsequent placement of J-tube for tube feedings. Patient is been managing her tube feedings on her own and reports using Jevity 1.0 for anywhere from 12 to 14 hours at night. She is also decided to follow a vegetarian diet recently Hospital Course Hospital Course: Patient was admitted and ruled out for CA with serial troponins. Chest x-ray was negative for pneumonia. Labs were unremarkable except for a slight elevation in PCO2 on ABG with no prior ABG for comparison. Patient was started on Vapotherm in the ER and continued this until the morning of 08/02. She was then weaned back to her baseline supplemental oxygen of [place] at 2.5L/min. Once weaned patient tolerated activity without shortness of breath or chest pain. She was discharged to home. Objective Vital signs: Temp Pulse Resp BP Pulse Ox 98.2 F 90 18 104/50 L 93 L 08/03/19 15:46 08/03/19 15:46 08/03/19 15:46 08/03/19 15:46 08/03/19 15:46 Results Labs on day of discharge: Labs from last 24 hours 08/03/19 08/03/19 08/03/19 06:20 06:20 02:05 WBC 7.0 D RBC 4.07 L Hgb 13.1 Hct 40.9 MCV 100.5 H MCH 32.2 H MCHC 32.0 RDW 13.2 Plt Count 427 H MPV 7.6 Neut % (Auto) 86.8 H Lymph % (Auto) 12.0 [place] % (Auto) 0.9 L Eos % (Auto) 0.1 Baso % (Auto) 0.2 Neut # (Auto) 6.1 Lymph # (Auto) 0.9 [place] # (Auto) 0.1 Eos # (Auto) 0.0 Baso # (Auto) 0.0 Total Counted 100 Neutrophils % (Manual) 86 H Lymphocytes % (Manual) 13 Monocytes % (Manual) 1 L Platelet Estimate Slight decrease Anisocytosis 1+ Macrocytosis 1+ Specimen Source O2 % ABG pH ABG pCO2 ABG pO2 ABG HCO3 ABG Total CO2 ABG O2 Saturation ABG Base Excess [place] Test Sodium 139 Potassium 4.2 Chloride 105 Carbon Dioxide 28 Anion Gap 10.2 BUN 16 Creatinine 0.40 L Estimated Creat Clear 104 Estimated GFR 163 Est GFR ( Amer) 198 Glucose 156 H D Lactate Calcium 9.3 Magnesium 1.7 Troponin I < 0.01 Triglycerides 59 Cholesterol 151 LDL Cholesterol Direct 92.56 L VLDL Cholesterol 12 HDL Cholesterol 46 Cholesterol/HDL Ratio 3.3 Influenza Type A Ag Influenza Type B Ag 08/02/19 08/02/19 08/02/19 22:50 20:31 20:06 WBC RBC Hgb Hct MCV MCH MCHC RDW Plt Count MPV Neut % (Auto) Lymph % (Auto) [place] % (Auto) Eos % (Auto) Baso % (Auto) Neut # (Auto) Lymph # (Auto) [place] # (Auto) Eos # (Auto) Baso # (Auto) Total Counted Neutrophils % (Manual) Lymphocytes % (Manual) Monocytes % (Manual) Platelet Estimate Anisocytosis Macrocytosis Specimen Source R/r O2 % 2.5 ABG pH 7.37 ABG pCO2 52.2 H ABG pO2 85.6 ABG HCO3 29.7 H ABG Total CO2 31.3 H ABG O2 Saturation 96 ABG Base Excess 4.5 H [place] Test Y Sodium Potassium Chloride Carbon Dioxide Anion Gap BUN Creatinine Estimated Creat Clear Estimated GFR Est GFR ( Amer) Glucose Lactate 1.4 Calcium Magnesium Troponin I < 0.01 Triglycerides Cholesterol LDL Cholesterol Direct VLDL Cholesterol HDL Cholesterol Cholesterol/HDL Ratio Influenza Type A Ag Influenza Type B Ag 08/02/19 08/02/19 08/02/19 20:06 20:06 20:06 WBC 10.3 RBC 4.42 Hgb 14.4 Hct 44.8 MCV 101.3 H MCH 32.5 H MCHC 32.1 RDW 13.3 Plt Count 466 H MPV 7.4 Neut % (Auto) 56.0 Lymph % (Auto) 35.4 [place] % (Auto) 5.3 Eos % (Auto) 2.3 Baso % (Auto) 1.0 Neut # (Auto) 5.8 Lymph # (Auto) 3.7 [place] # (Auto) 0.5 Eos # (Auto) 0.2 Baso # (Auto) 0.1 Total Counted Neutrophils % (Manual) Lymphocytes % (Manual) Monocytes % (Manual) Platelet Estimate Anisocytosis Macrocytosis Specimen Source O2 % ABG pH ABG pCO2 ABG pO2 ABG HCO3 ABG Total CO2 ABG O2 Saturation ABG Base Excess [place] Test Sodium 142 Potassium 3.8 Chloride 102 Carbon Dioxide 32 H Anion Gap 11.8 BUN 13 Creatinine 0.40 L Estimated Creat Clear 163 Estimated GFR 163 Est GFR ( Amer) 198 Glucose 118 H Lactate Calcium 9.7 Magnesium Troponin I < 0.01 Triglycerides Cholesterol LDL Cholesterol Direct VLDL Cholesterol HDL Cholesterol Cholesterol/HDL Ratio Influenza Type A Ag Negative Influenza Type B Ag Negative DS: Diagnosis - Discharge Diagnosis (1) Chest pain Status: Acute (2) SMAS (superior mesenteric artery syndrome) Status: Acute (3) Severe protein-calorie malnutrition Status: Acute (4) Chronic obstructive pulmonary disease (COPD) Status: Chronic (5) Headache disorder Status: Chronic (6) Oxygen dependent Status: Chronic (7) Pulmonary hypertension, moderate to severe Status: Chronic Discharge Plan - Patient Discharge Instructions ACTIVITY: Continue current activity DIET: continue same diet Patient Instructions: Chronic Obstructive Pulmonary Disease, DI for Chronic Obstructive Pulmonary Disease, DI for Chest Pain - Follow up Plan Follow up with: Solo Vargas MD [Primary Care Provider] - 2 days Disposition: Home, Self-Fci Medications: Home Medications Medication Instructions Recorded Confirmed Type Albuterol Sulfate [Albuterol HFA 1 - 2 puffs IH Q4-6H PRN 02/02/18 08/02/19 History Inhaler] Albuterol Sulfate [Albuterol 3 ml IH Q6H 05/18/18 08/02/19 History 0.083% 2.5mg/3mL neb] Aspirin [Aspir 81] 81 mg PO DAILY 06/12/18 08/02/19 History Loratadine [Claritin 10mg Tablet] 10 mg PO DAILY 08/26/18 08/02/19 History dilTIAZem HCl [Diltiazem 180mg 180 mg PO DAILY 04/14/19 08/02/19 History 24Hr ER Cap] njnwts-oprouhlq-xrrjwnt 1 cap PO TIDWM #100 cap 04/30/19 08/02/19 History 40,000-126,000-168,000 unit capsule, delay rel Acetaminophen [Tylenol 325mg 487 mg PO BID 08/02/19 08/02/19 History Tablet] Fluticasone Propionate [Flonase 2 spr NS DAILY 08/02/19 08/02/19 History 50mcg nasal spray 16gm] Tiotropium Br/Olodaterol HCl 2 puffs IH DAILY 08/02/19 08/02/19 History [Stiolto Respimat Inhal [place]] Famotidine [Pepcid 20mg Tablet] 20 mg PO BID 08/03/19 08/03/19 History Metoprolol Succinate 25 mg PO DAILY 08/03/19 08/03/19 History Prescriptions/Medication Reconciliation: Continued igifmx-ujlhiqua-pguxwwk 40,000-126,000-168,000 unit capsule, delay rel 1 cap PO TIDWM #100 cap Albuterol Sulfate [Albuterol HFA Inhaler] 1 - 2 puffs IH Q4-6H PRN PRN Reason: Shortness Of Breath Or Wheezing Albuterol Sulfate [Albuterol 0.083% 2.5mg/3mL neb] 3 ml IH Q6H Aspirin [Aspir 81] 81 mg PO DAILY Loratadine [Claritin 10mg Tablet] 10 mg PO DAILY dilTIAZem HCl [Diltiazem 180mg 24Hr ER Cap] 180 mg PO DAILY Tiotropium Br/Olodaterol HCl [Stiolto Respimat Inhal [place]] 2 puffs IH DAILY Acetaminophen [Tylenol 325mg Tablet] 487 mg PO BID Fluticasone Propionate [Flonase 50mcg nasal spray 16gm] 2 spr NS DAILY Famotidine [Pepcid 20mg Tablet] 20 mg PO BID Metoprolol Succinate 25 mg PO DAILY - Problem Reconciliation Problems Reviewed?: Yes
--- NOTE | 2019-08-04 11:58 | Electrocardiograph Report ---
APPROVED REPORT Exam: Resting ECG HR:85 bpm ECG Measurements Heart Rate 85 AXES AL 126 P 82 QRSd 88 QRS 85 QT 360 T42 QTc 428 <Conclusion> Normal sinus rhythm Incomplete RBBB Otherwise a Normal ECG Electronically signed by : Georgi Moran, 08/04/2019 11:57:30
== END 2019-08-03 15:30 | disposition home or self-care (01) ==
LOC: 2ND 19:51 → ER 19:51 → 2ND 22:00
PROVIDERS: ADMIT Emergency Medicine; ATTEND Internal Medicine Adolescent Medicine
CPT/HCPCS: 36415; 71010; 71045; 80048; 80061; 82803; 83605; 83735; 84484; 85007; 85025; 87040; 87070; 87077; 87186; 87205; 87275; 87276; 93005; 94640; 94760; 94761; 96374; 99284; G0378; J1956

== ENCOUNTER → 2019-09-26 10:47 | Outpatient (CLI) | payer OTHER, SELFPAY ==
[2019-09-26 11:25] LABS: Basophils # 0.2 K/mm3 (0-0.2); Basophils % 1.2 % (0.1-2.0); Eosinophils # 0.4 K/mm3 (0.0-0.4); Eosinophils % 2.9 % (0.1-12.0); Hematocrit 46.6 % (37.0-47.0); Hemoglobin 14.7 g/dL (12.2-16.2); Lymphocytes # 4.7 K/mm3 (0.7-4.5); Lymphocytes % 34.6 % (10-50); Mean Corpuscular HGB Conc 31.4 g/dL (31.8-35.4); Mean Corpuscular Hemoglobin 32.6 pg (27.0-31.2); Mean Corpuscular Volume 103.7 fl (81-99); Mean Platelet Volume 7.6 fl (7.4-10.4); Monocytes # 0.6 K/mm3 (0.1-1.0); Monocytes % 4.6 % (1.7-9.3); Neutrophils # 7.8 K/mm3 (1.8-7.8); Neutrophils % 56.8 % (37.0-80.0); Platelet Count 437 K/mm3 (142-424); Red Cell Distribution Width 13.2 % (11.5-17.5); White Blood Count 13.7 K/mm3 (4.8-10.8)
[2019-09-26 12:29] LABS: Chloride 103 mmol/L (98-107); Potassium 4.5 mmoL/L (3.5-5.1); Sodium 143 mmol/L (136-145)
[2019-09-26 12:32] LABS: Alanine Aminotransferase 24 U/L (12-78); Albumin Level 4.3 g/dl (3.5-5.0); Albumin/Globulin Ratio 1.7 (1.1-1.8); Alkaline Phosphatase 75 U/L (38-126); Anion Gap 12.5 mEq/L (5-15); Aspartate Amino Transferase 24 U/L (14-36); Bilirubin,Total 0.2 mg/dl (0.2-1.3); Blood Urea Nitrogen 15 mg/dl (7-17); Calcium 9.9 mg/dl (8.4-10.2); Carbon Dioxide 32 mmol/L (22.0-30.0); Estimated Glomerular Filt Rate 126 ml/min (>60); GFR (African American) 153 ML/MIN (>60); Globulin 2.5 g/dL (1.3-3.2); Glucose 83 mg/dl (74-100); Total Protein,Serum 6.8 g/dl (6.3-8.2)
[2019-09-26 13:04] LABS: Thyroid Stimulating Hormone 2.28 uIU/mL (0.465-4.68)
[2019-09-27 11:18] LABS: Vitamin B12 467 pg/mL (232-1245); Vitamin D 25 Hydroxy 53.6 ng/mL (30.0-100.0)
== END ==
PROVIDERS: Visit Provider Internal Medicine Adolescent Medicine
DX: E43 Unspecified severe protein-calorie malnutrition (principal); K86.81 Exocrine pancreatic insufficiency
CPT/HCPCS: 36415; 80053; 82180; 82607; 82652; 84443; 85025

== ENCOUNTER → 2019-12-29 15:31 | Outpatient (CLI) | payer OTHER, SELFPAY | PROVIDERS: PCP Internal Medicine Adolescent Medicine; Visit Provider Internal Medicine Adolescent Medicine | DX: R00.2 Palpitations (principal) | CPT/HCPCS: 93225; 93226 ==

== ENCOUNTER → 2020-01-06 14:15 | Outpatient (CLI) | payer OTHER, SELFPAY ==
--- NOTE | 2020-01-06 14:19 | MR_ITS ---
PROCEDURE: MR HEAD/BRAIN WO CON CLINICAL INDICATION: CHRONIC NONINTRACTABLE HEADACHE HEADACHE FOR YEARS, DIZZINESS, BLURRED VISION, TINNITUS, SYMPTOMS X YEARS COMPARISON: CR CXR2V XR chest 2V from 08/26/2018 MR BRAINWO MR head/brain wo con from 08/28/2018 TECHNIQUE: Routine multiplanar multi echo sequences are performed without gadolinium enhancement. FINDINGS: No midline shift, mass effect, intracranial hemorrhage, or hydrocephalus. The cerebellopontine angles, cerebellum, and brainstem have an unremarkable appearance. There is no evidence of acute infarction. There are a few periventricular and subcortical T2 white matter hyperintensities which are nonspecific. Increased T2 white matter signal intensity noted in the left frontal lobe with an area of central decreased intensity not significantly changed and may be due to an area of ischemic gliotic change. The pituitary, optic chiasm, corpus callosum, and craniocervical junction have an unremarkable appearance. There is a small central disc protrusion at C3-C4 which may be causing some minimal impingement upon the cord anteriorly and may be better evaluated with MRI of the cervical spine if clinically warranted. No mastoid effusion or sinus air-fluid level IMPRESSION: 1. No acute intracranial findings. 2. Nonspecific T2 white matter hyperintensities not significantly changed. 3. Small central disc protrusion at C3-C4 with minimal impingement upon the cord anteriorly Dictated b Getachew Vega MD 01/07/2020 12:01 Getachew Vega MD in [place] 01/07/2020 12:01
== END ==
PROVIDERS: PCP Internal Medicine Adolescent Medicine; Visit Provider Internal Medicine Adolescent Medicine
DX: R51 Headache (principal)
CPT/HCPCS: 70551

== ENCOUNTER → 2020-04-15 16:11 | Outpatient (CLI) | payer OTHER, SELFPAY ==
[2020-04-15 17:26] LABS: Chloride 102 mmol/L (98-107)
[2020-04-15 17:27] LABS: Potassium 4.9 mmoL/L (3.5-5.1); Sodium 140 mmol/L (136-145)
[2020-04-15 17:29] LABS: Alanine Aminotransferase 13 U/L (12-78); Aspartate Amino Transferase 22 U/L (14-36); Blood Urea Nitrogen 14 mg/dl (7-17); Estimated Glomerular Filt Rate 102 ml/min (>60); GFR (African American) 123 ML/MIN (>60)
[2020-04-15 17:30] LABS: Albumin Level 4.6 g/dl (3.5-5.0); Albumin/Globulin Ratio 1.6 (1.1-1.8); Alkaline Phosphatase 85 U/L (38-126); Anion Gap 11.9 mEq/L (5-15); Bilirubin,Total 0.5 mg/dl (0.2-1.3); Calcium 10.1 mg/dl (8.4-10.2); Carbon Dioxide 31 mmol/L (22.0-30.0); Globulin 2.9 g/dL (1.3-3.2); Glucose 96 mg/dl (74-100); Total Protein,Serum 7.5 g/dl (6.3-8.2)
[2020-04-15 17:34] LABS: Basophils # 0.1 K/mm3 (0-0.2); Basophils % 1.1 % (0.1-2.0); Eosinophils # 0.2 K/mm3 (0.0-0.4); Eosinophils % 1.6 % (0.1-12.0); Hematocrit 50.9 % (37.0-47.0); Hemoglobin 16.1 g/dL (12.2-16.2); Lymphocytes # 4.5 K/mm3 (0.7-4.5); Lymphocytes % 39.5 % (10-50); Mean Corpuscular HGB Conc 31.5 g/dL (31.8-35.4); Mean Corpuscular Hemoglobin 31.8 pg (27.0-31.2); Mean Platelet Volume 8.3 fl (7.4-10.4); Monocytes # 0.6 K/mm3 (0.1-1.0); Monocytes % 5.4 % (1.7-9.3); Neutrophils # 5.9 K/mm3 (1.8-7.8); Neutrophils % 52.4 % (37.0-80.0); Platelet Count 431 K/mm3 (142-424); Red Blood Count 5.04 M/mm3 (4.20-5.40); Red Cell Distribution Width 13.6 % (11.5-17.5); White Blood Count 11.3 K/mm3 (4.8-10.8)
== END ==
PROVIDERS: Visit Provider Internal Medicine Adolescent Medicine
DX: J44.1 Chronic obstructive pulmonary disease with (acute) exacerbation (principal); E43 Unspecified severe protein-calorie malnutrition; K21.9 Gastro-esophageal reflux disease without esophagitis
CPT/HCPCS: 36415; 80053; 85025

== ENCOUNTER → 2020-08-12 15:28 | Outpatient (CLI) | payer OTHER, SELFPAY ==
[2020-08-12 16:09] LABS: Basophils # 0.1 K/mm3 (0-0.2); Basophils % 0.9 % (0.1-2.0); Eosinophils # 0.2 K/mm3 (0.0-0.4); Eosinophils % 2.1 % (0.1-12.0); Hematocrit 49.7 % (37.0-47.0); Hemoglobin 15.5 g/dL (12.2-16.2); Lymphocytes # 4.4 K/mm3 (0.7-4.5); Lymphocytes % 40.7 % (10-50); Mean Corpuscular HGB Conc 31.1 g/dL (31.8-35.4); Mean Corpuscular Hemoglobin 31.3 pg (27.0-31.2); Mean Corpuscular Volume 100.6 fl (81-99); Monocytes # 0.6 K/mm3 (0.1-1.0); Monocytes % 5.3 % (1.7-9.3); Neutrophils # 5.5 K/mm3 (1.8-7.8); Neutrophils % 50.9 % (37.0-80.0); Platelet Count 388 K/mm3 (142-424); Red Blood Count 4.94 M/mm3 (4.20-5.40); Red Cell Distribution Width 14.5 % (11.5-17.5); White Blood Count 10.8 K/mm3 (4.8-10.8)
[2020-08-12 16:36] LABS: Hemoglobin A1C 5.7 % (4.0-6.0)
[2020-08-12 16:52] LABS: Free Thyroxine Index 2.4 ug/dL (5.93-13.13); T4 (Thyroxine) 7.9 ug/dl (5.53-11.0); Triiodothryronine (T3) Uptake 30 % (23.5-40.5)
[2020-08-12 17:06] LABS: Thyroid Stimulating Hormone 1.53 uIU/mL (0.465-4.68)
[2020-08-12 17:16] LABS: Chloride 105 mmol/L (98-107); Potassium 4.3 mmoL/L (3.5-5.1); Sodium 142 mmol/L (136-145)
[2020-08-12 17:19] LABS: Alanine Aminotransferase 15 U/L (12-78); Albumin Level 5.1 g/dl (3.5-5.0); Albumin/Globulin Ratio 1.5 (1.1-1.8); Alkaline Phosphatase 90 U/L (38-126); Anion Gap 11.3 mEq/L (5-15); Aspartate Amino Transferase 24 U/L (14-36); Bilirubin,Total 0.5 mg/dl (0.2-1.3); Blood Urea Nitrogen 13 mg/dl (7-17); Calcium 10.2 mg/dl (8.4-10.2); Carbon Dioxide 30 mmol/L (22.0-30.0); Estimated Glomerular Filt Rate 126 ml/min (>60); GFR (African American) 152 ML/MIN (>60); Globulin 3.3 g/dL (1.3-3.2); Glucose 93 mg/dl (74-100); Total Protein,Serum 8.4 g/dl (6.3-8.2)
[2020-08-14 18:03] LABS: C-Peptide 1.9 ng/mL (1.1-4.4)
[2020-08-23 17:09] LABS: Alpha-1-Antitrypsin 136 mg/dL (101-187)
[2020-08-23 20:15] LABS: Phenotype (PI) MS (.)
== END ==
PROVIDERS: Visit Provider Internal Medicine Adolescent Medicine
DX: E16.2 Hypoglycemia, unspecified (principal); K86.81 Exocrine pancreatic insufficiency; R63.4 Abnormal weight loss
CPT/HCPCS: 36415; 80053; 82103; 82104; 82533; 82787; 83036; 83525; 84436; 84443; 84479; 84681; 85025

== ENCOUNTER 2020-10-11 14:48 | Emergency (ER) | payer OTHER, SELFPAY ==
[2020-10-11 15:00] VITALS: BP 138/89; PULSE 78; RESP 16; TEMP 36.9; O2SAT 98; BMI 20.5
--- NOTE | 2020-10-11 15:14 | HMH.EDUTC ---
[facility] [place] Clinical Impression: Tick bite Qualifiers: Encounter type: initial encounter Qualified Code(s): W57.XXXA - Bitten or stung by nonvenomous insect and other nonvenomous arthropods, initial encounter Disposition: Home, Self-Care Condition on Discharge: Good Instructions: How to Remove a Tick, Protect Yourself from Tickborne Illnesses Additional Instructions: take antibiotics as ordered follow up with pcp for test results and to see if antibiotics need to be given longer than 14 days if worsen or no improvement return Prescriptions: Doxycycline Hyclate [Doxycycline 100mg Capsule] 100 mg PO BID 14 Days #28 cap Transmission Status: Pending to [facility] Referrals: Solo Vargas MD [Primary Care Provider] - Time of Disposition: 15:19 Medical Decision Making - Nick Inquiry Pt receiving controlled substance: No Vital Signs: 10/11/20 15:00 Temperature 98.4 F Temperature Source Oral Pulse Rate [Right] 78 Respiratory Rate 16 Blood Pressure [Right Arm] 138/89 Blood Pressure Mean [Right Arm] 105 Blood Pressure Source [Right Arm] Automatic Cuff Blood Pressure Position [Right Arm] Sitting 02 Sat by Pulse Oximetry 98 Oxygen Delivery Method Nasal Cannula Oxygen Flow Rate (LPM) 2 Orders (Tests/Meds): ORDERS Category Date Time Status Lyme, IgM, Early Test/Reflex Routine Lab 10/11/20 15:13 Ordered Lyme, Total Ab Test/Reflex Routine Lab 10/11/20 15:[address] [place] Spotted Fev, IgG, Qn Routine Lab 10/11/20 15:13 [place]dered [facility] [place] - General Chief complaint: [facility]gent [facility] Stated complaint: headache, neck stiffness Time Seen by Provider: 10/11/20 15:14 Mode of Arrival: Wheelchair Source of Information: Patient Limitations: No Limitations Description of Symptoms (Recalled from Triage Doc. by RN): PT advises she had gotten bit by a tick 2 weeks ago and she has been feeling achey and feeling like she has the flu. pt states the tick only part came out at first but she was able to get complete tick out - History of Present Illness Provider Complaint: 60 yr old female presents for advises she had gotten bit by a tick 2 weeks ago and she has been feeling achey and feeling like she has the flu. - Related Data Home Medications Medication Instructions Recorded Confirmed Albuterol Sulfate [Ventolin HFA 1 - 2 puffs IH Q4-6H PRN 02/02/18 05/06/20 Inhaler] Albuterol Sulfate [Albuterol 3 ml IH Q6H 05/18/18 05/06/20 0.083% 2.5mg/3mL neb] Aspirin [Aspir 81] 81 mg PO DAILY 06/12/18 05/06/20 Tiotropium Br/Olodaterol HCl 2 puffs IH DAILY 08/02/19 05/06/20 [Stiolto Respimat Inhal [place]] Famotidine [Pepcid 20mg Tablet] 20 mg PO BID 08/03/19 05/06/20 acetaminophen 325 mg tablet 325 mg PO BID tab 04/15/20 05/06/20 mgmweg-vsmanmil-vsxtupf 1 cap PO TID #100 cap 04/15/20 05/06/20 40,000-126,000-168,000 unit capsule, delay rel loratadine 10 mg tablet 10 mg PO DAILY PRN 04/15/20 05/06/20 Previous Rx's Medication Instructions Recorded metoprolol succinate 50 mg See Rx Instructions .ROUTE 10/04/20 tablet,extended release 24 hr .COMPLEX #30 tab Doxycycline Hyclate [Doxycycline 100 mg PO BID 14 Days #28 cap 10/11/20 100mg Capsule] Allergies Allergy/AdvReac Type Severity Reaction Status Date / Time erythromycin base Allergy Intermediate I-RASH Verified 05/06/20 13:29 [ERYTHROMYCIN BASE] [facility] History - Hepatitis A Screen Attestation statement:: This patient has been screened for Hepatitis A risk factors. I have reviewed the patient's past medical history: Yes Medical History: Reports:: Arrhythmia, Chronic Obstructive Pulmonary Disease (COPD), Coronary Artery Disease, Hyperlipidemia, Palpitations Denies:: Cancer, Diabetes Mellitus Type 1, Diabetes Mellitus Type 2, MRSA Other Medical History: Reports: Anemia, Arthritis, Fibromyalgia, Sinus Problems Comment: SMA syndrome Laterality Cases: Right: Other Other Surgeries: Yes: No
[2020-10-11 15:24] VITALS: BP 138/89; PULSE 78; RESP 16; TEMP 36.9; O2SAT 98
[2020-10-14 09:19] LABS: RMSF, IgG, EIA Negative (Negative)
== END 2020-10-11 15:49 | disposition home or self-care (01) ==
PROVIDERS: Nurse Practitioner Family; Emergency Provider Nurse Practitioner; PCP Internal Medicine Adolescent Medicine
DX: S10.96XA Insect bite of unspecified part of neck, initial encounter (principal); W57.XXXA Bitten or stung by nonvenomous insect and other nonvenomous arthropods, initial encounter; J44.9 Chronic obstructive pulmonary disease, unspecified; I25.10 Atherosclerotic heart disease of native coronary artery without angina pectoris; E78.5 Hyperlipidemia, unspecified; F17.210 Nicotine dependence, cigarettes, uncomplicated
CPT/HCPCS: 86609; 86618; 99202; G0463

== ENCOUNTER → 2021-01-31 14:24 | Outpatient (CLI) | payer OTHER, SELFPAY ==
--- NOTE | 2021-01-31 14:34 | FL_ITS ---
PROCEDURE: FL FEEDING TUBE CLINICAL INDICATION: check tube flow COMPARISON: No exams were available for comparison FINDINGS: Fluoroscopy time: 54 seconds. KUB demonstrates surgical clips at the lower esophageal region. Jejunostomy tube is present in the left lower quadrant. Approximately 40 mL Gastrografin mixed with water was injected through the J-tube. At 1st there was a small amount of resistance to the contrast injection however, contrast did flow freely into the jejunum and was in good position. There is no evidence of contrast extravasation. There was a bend within the J tube a few cm proximal to the entrance into the jejunum however, this did not appear to be impeding flow. There was approximately 40 percent narrowing at this region. IMPRESSION: Good flow contrast into the jejunum with no evidence of extravasation or occlusive change. There was a bend with approximately 40 percent narrowing of the J-tube just proximal to the skin entrance. This however did not appear to be impeding flow. Dictated by: Getachew Vega MD 01/31/2021 15:56 Getachew Vega MD in [place] 01/31/2021 15:56
== END ==
PROVIDERS: PCP Internal Medicine Adolescent Medicine; Visit Provider Surgery
DX: R63.4 Abnormal weight loss (principal)
CPT/HCPCS: 49465

== ENCOUNTER → 2021-06-30 07:27 | Outpatient (CLI) | payer OTHER, SELFPAY ==
--- NOTE | 2021-06-30 | CA_ITS ---
APPROVED REPORT Exam: Pharmacologic Technologist: Kelsey Calderon, Ht: 5 ft 2 in Wt: 84 lbs BSA: 1.32 m2 HR: 75 bpm BP: 105/63 mmHg Rhythm: NSR Medical History Medications: Aspirin,,,,, Metoprolol,,,,, Albuterol,,,,, Famotidine,,,,, Acetaminophen,,,,, LoraTADINE,,,,, Amylase,,,,, LipAse,,,,, StIOLto,,,,, Stress Test Details Test: LEXISCAN HR Resting HR: 77 bpm Max Heart Rate (APMHR): 159.914012 bpm Max HR Achieved: 98 bpm Target HR (85% APMHR): 135.739623 bpm % of APMHR: 61.64 Recovery HR: 96 bpm BP Resting BP: 105/63 mmHg Max BP: 135/63 mmHg Recovery BP: 127.0/66.0 mmHg ECG Resting ECG: NSR Clinical Exercise duration: 04:14 min Highest Stage Achieved: Exercise capacity: 1.0 METs Stress ECG Conclusion During lexiscan pt experinced SOA, BAEZ, mild chest pressure. Brief sinus slowing after infusion. Occasional PVC. NS ST changes. Most notably in the inferior leads. Non diagnostic lexiscan stress. Myoview images reported separately. Electronically signed by : Alessandro Pinzon MD 07/01/2021 08:49:21
--- NOTE | 2021-06-30 07:28 | NM_ITS ---
APPROVED REPORT Exam: Nuclear Stress Test Indication: HTN, TOB USE, C.P., SOB, PALPITATIONS, FATIGUE, TACHYCARDIA, LIPIDEMIA Patient Location: Outpatient Stress Tech: Kelsey Calderon NM Tech:JUDSON Tripp RT(R)(N) Ht: 5 ft 2 in Wt: 84 lbs HR: 77 bpm BP: 105/63 mmHg BSA: 1.32 m2 BMI: 15.3 History: HTN, TOB USE, C.P., SOB, PALPITATIONS, FATIGUE, TACHYCARDIA, LIPIDEMI pt could not lay on stomach for prone images Procedure: Patient received a 0.4 mg of intravenous Lexiscan, resting heart rate 77 bpm, resting blood pressure 105/63 mmHg, with Lexiscan maximum heart rate achived was 98 bpm which is Less than 85 % of the maximum predicted heart rate and blood pressure was 135/63 mmHg. With Lexiscan, patient denied any complaint of chest pain. Electrocardiogram Resting electrocardiogram showed sinus rhythm, with Lexiscan there is less than 1.[address] segment depression noted from the baseline EKG. The EKG portion of the Lexiscan is nondiagnostic. Cardiac Stress and Resting SPECT Images: Cardiac Stress and Resting SPECT images were obtained using technetium 99m Myoview 32.3 mCi stress and 10.53 mCi at rest. Gated SPECT for analysis of segmental wall motion and calculation of ejection fraction also done. Cardiac stress and rest SPECT images show uniform myocardial activity without segmental perfusion abnormality, computer derived ejection fraction is 65% with no regional wall motion abnormality. Right ventricle is normal size and contractility. Conclusion: 1. The EKG portion of the Lexiscan is nondiagnostic. 2. No scintigraphic evidence of reversible ischemia seen, computer derived ejection fraction is 65% with no regional wall motion abnormality, right ventricle is normal size and contractility. 3. Normal Lexiscan Myoview study. Electronically signed by : Alessandro Pinzon MD 07/01/2021 08:51:45
--- NOTE | 2021-06-30 07:39 | CA_ITS ---
APPROVED REPORT EXAM: Comprehensive 2D, Doppler, and color-flow Echocardiogram Ingot Buggy Operator: Sera Fischer CRT Ht: 5 ft 2 in Wt: 84lbs BSA: 1.32 BP: 111/69 mmHg Indications: Chest Pain, COPD, Shortness of Breath, Palpitations, Fatigue, CAD, Hypertension/HDD 2D Dimensions LVOT 1.73 cm (M/F) 1.5-2.5 LA Volume 10.50 mL LA Volume Index 8.00 mL/m2 (M/F) 16-34 M-Mode Dimensions RVDd 2.32 cm (0.9-2.6) LA Diam 2.57 cm (1.9-4.0) LVDd 4.51 cm (3.5-5.7) Ao Diam 3.71 cm (2.0-3.7) LVDs 2.70 cm (3.5-5.7) IVSd 0.83 cm (0.6-1.1) PWd 0.64 cm (0.6-1.1) EF (Teich) 70.90% FS 40.10% EDV (Teich) 92.90 mL ESV (Teich) 27.00 mL LV Diastology E Decel Time 150.00 (160-240 msec) E/A Ratio 0.74 Aortic Valve AO Peak GR. 3.20 mmHg Mitral Valve MV E Max Will. 52.00 (40-130 cm/s) MV A Velocity 71.00 (40-130 cm/s) E/A Ratio 0.74 MV Decel. Time 150.00 (160-240 ms) MV PHT 44.00 ms Pulmonary Valve PV Peak Velocity 202.00 (50-150 cm/s) Tricuspid Valve TR P. Velocity 294.00 cm/s RAP Estimate 10.00 mmHg RVSP 44.60 mmHg Left Ventricle Left atrium is mildly enlarged, left ventricle is normal size, visually estimated ejection fraction 55% with no regional wall motion abnormality, there is no concentric left ventricular hypertrophy, Doppler evidence of impaired LV relaxation seen. There is no tissue Doppler performed. Right Ventricle Right atrium and right ventricle are mildly enlarged with normal contractility. Aortic Valve Aortic valve is grossly normal, there is no aortic stenosis or aortic insufficiency. Mitral Valve Mitral valve grossly normal, there is trace mitral regurgitation. Tricuspid Valve Tricuspid valve grossly normal, there is mild tricuspid regurgitation, calculated right ventricular systolic pressure is 44 mmHg. Pulmonic Valve Pulmonic valve is poorly visualized. Great Vessels Aortic root is normal size. Inferior vena cava is normal size with normal inspiratory collapse. Pericardium No significant pericardial effusion noted. Conclusion 1. Mild biatrial enlargement, normal left ventricular size, visually estimated ejection fraction 55% with no obvious regional wall motion abnormality, Doppler evidence of impaired LV relaxation seen, there is no tissue Doppler performed. 2. Mildly enlarged right ventricle with normal contractility. 3. Trace mitral and mild tricuspid regurgitation, calculated right ventricular systolic pressure is 44 mmHg. 4. No significant pericardial effusion noted. 5. Inferior vena cava is normal size with normal inspiratory collapse. Electronically signed by : Alessandro Pinzon MD 07/01/2021 10:44:31
== END ==
PROVIDERS: PCP Internal Medicine Adolescent Medicine; Visit Provider Physician Assistant
DX: R06.02 Shortness of breath (principal); R07.2 Precordial pain; R00.0 Tachycardia, unspecified; I25.10 Atherosclerotic heart disease of native coronary artery without angina pectoris; E78.2 Mixed hyperlipidemia; Z86.711 Personal history of pulmonary embolism
CPT/HCPCS: 78452; 93017; 93306; A9502; J2785

== ENCOUNTER 2021-09-09 05:08 | Inpatient (IN) | payer OTHER, SELFPAY ==
[2021-09-09] VITALS (17 sets, daily range): BP systolic 91–125; BP diastolic 52–68; PULSE 80–96; RESP 20–22; TEMP 36.6–37; O2SAT 87–98; BMI 14.6; BMI 15.5; BMI 15.7
--- NOTE | 2021-09-09 05:12 | XR_ITS ---
PROCEDURE INFORMATION: Exam: XR Chest Exam date and time: 09/09/2021 5:27 AM Age: 61 years old Clinical indication: Shortness of breath; Additional info: SOA TECHNIQUE: Imaging protocol: XR of the chest. Views: 1 view. COMPARISON: CR XR CHEST PORTABLE 08/02/2019 8:37 PM FINDINGS: Lungs: Hyperinflation consistent with COPD. No focal consolidation. Pleural spaces: Unremarkable. No pleural effusion. No pneumothorax. Heart/Mediastinum: Unremarkable. No cardiomegaly. Bones/joints: Lower cervical fusion. Gastrointestinal tract: EG junction surgical clips. IMPRESSION: Stable appearance compared to 08/02/2019, with findings above.
--- NOTE | 2021-09-09 05:20 | ECG_ITS ---
APPROVED REPORT Exam: Resting ECG HR:67 bpm ECG Measurements Heart Rate 67 AXES DC 105 P 78 QRSd 90 QRS 68 QT 376 T 34 QTc 391 Conclusion SINUS RHYTHM WITH SHORT DC INTERVAL POSSIBLE RIGHT VENTRICULAR CONDUCTION DELAY [RSR (QR) IN V1/V2] MINIMAL ST DEPRESSION [0.025+ mV ST DEPRESSION] BORDERLINE ECG UNCONFIRMED REPORT Electronically signed by : Solo Vargas MD 09/09/2021 14:50:55
[2021-09-09 05:30] LABS: VBG Base Excess 7.3 mmol/L (-2.4-2.3); VBG HCO3 34.3 mmol/L (23-30); VBG Oxygen Saturation 85.3 % (50-70); VBG PH 7.27 mmol/L (7.31-7.41); VBG Total CO2 36.6 mmol/L (23-27)
[2021-09-09 05:33] LABS: Basophils # 0.3 K/mm3 (0-0.2); Basophils % 0.7 % (0.1-2.0); Eosinophils # 0.1 K/mm3 (0.0-0.4); Eosinophils % 0.4 % (0.1-12.0); Hematocrit 51.4 % (37.0-47.0); Hemoglobin 15.9 g/dL (12.2-16.2); Lymphocytes # 1.3 K/mm3 (0.7-4.5); Lymphocytes % 3.6 % (10-50); Mean Corpuscular HGB Conc 30.9 g/dL (31.8-35.4); Mean Corpuscular Hemoglobin 32.6 pg (27.0-31.2); Mean Corpuscular Volume 105.5 fl (81-99); Mean Platelet Volume 9.6 fl (7.4-10.4); Monocytes # 1.3 K/mm3 (0.1-1.0); Monocytes % 3.5 % (1.7-9.3); Neutrophils # 32.9 K/mm3 (1.8-7.8); Neutrophils % 91.8 % (37.0-80.0); Platelet Count 295 K/mm3 (142-424); Red Blood Count 4.87 M/mm3 (4.20-5.40); Red Cell Distribution Width 14.2 % (11.5-17.5); White Blood Count 35.8 K/mm3 (4.8-10.8)
--- NOTE | 2021-09-09 05:34 | PC.NURSE ---
Notified RT of order for bipap
[2021-09-09 05:46] LABS: Chloride 98 mmol/L (98-107)
--- NOTE | 2021-09-09 05:46 | HMH.EDGENADL ---
ED Disposition Clinical Impression: COPD exacerbation Disposition: Admitted As Inpatient Condition on Discharge: Good Referrals: Solo Vargas MD [Primary Care Provider] - - Critical Care Critical Care Time: No Attestation: On 09/09/21, the high probability of a clinically significant, sudden or life threatening deterioration of the following system(s) required my full and direct attention, intervention and personal management. The time I documented below is in addition to time spent performing reported procedures but includes the following listed in this critical care notation. Medical Decision Making - Medical Records Medical records reviewed: Yes: I reviewed the patient's medical records. - Nick Inquiry Pt receiving controlled substance: No Vital Signs: 09/09/21 05:08 Temperature 98.5 F Temperature Source Oral Pulse Rate [Right] 91 H Respiratory Rate 22 Blood Pressure [Right Arm] 117/61 Blood Pressure Mean [Right Arm] 79 02 Sat by Pulse Oximetry 95 Oxygen Delivery Method Nasal Cannula Oxygen Flow Rate (LPM) 2 - Lab Data Lab Results 09/09/21 05:13: VBG pH 7.27 L, VBG pCO2 76.5 H, VBG pO2 51.0 H, VBG HCO3 34.3 H, VBG Total CO2 36.6 H, VBG O2 Saturation 85.3 H, VBG Base Excess 7.3 H 09/09/21 05:20: Sodium 138, Potassium 4.1, Chloride 98, Carbon Dioxide 36 H, Anion Gap 8.1, BUN 22 H, Creatinine 0.40 L, Estimated Creat Clear 34, Estimated GFR 162, Est GFR ( Amer) 196, Glucose 110 H, Calcium 8.7, Total Bilirubin 0.9, AST 38 H, ALT 32, Alkaline Phosphatase 104, Troponin I < 0.01, Total Protein 7.6, Albumin 4.3, Globulin 3.3 H, Albumin/Globulin Ratio 1.3 09/09/21 05:20: NT-Pro-B Natriuret Pep 113 09/09/21 05:46: SARS-CoV-2 (PCR) Not detected, Influenza A Untype (PCR) Not detected, Influenza Type B (PCR) Not detected Result diagrams: 09/09/21 05:20 Orders (Tests/Meds): ED MEDICATIONS Generic Name Dose Route Start Last Admin Trade Name Freq PRN Reason Stop Dose Admin Sodium Chloride 1,000 mls @ 500 mls/hr 09/09/21 05:45 09/09/21 06:16 Sod Chlor 0.9% 1000ml Bag IV 10/09/21 05:44 500 mls/hr .Q2H PRAVIN Administration Discontinued Medications Generic Name Dose Route Start Last Admin Trade Name Pina PRN Reason Stop Dose Admin Albuterol/Ipratropium 6 ml 09/09/21 05:32 Ipratropium/Albuterol 3 Ml Neb IH 09/09/21 05:33 ONCE ONE Amoxicillin/Clavulanate Potassium 2 each 09/09/21 05:32 09/09/21 06:16 Amoxicillin/Pot Clavulan 500mg Tablet PO 09/09/21 05:33 2 each ONCE ONE Administration Doxycycline Hyclate 100 mg 09/09/21 05:34 09/09/21 06:16 Doxycycline Hycl 100 Mg Tablet PO 09/09/21 05:35 100 mg ONCE ONE Administration Methylprednisolone Sodium Succinate 125 mg 09/09/21 05:32 09/09/21 06:17 Methylprednisolone Sod Succ 125mg Vial IV 09/09/21 05:33 125 mg ONCE ONE Administration ORDERS Category Date Time Status Complete Blood Count Auto Diff Stat Lab 09/09/21 05:20 Received Troponin I Q3H Lab 09/09/21 08:15 Ordered Troponin I Q3H Lab 09/09/21 11:15 Ordered VBG [Venous Blood Gas] Stat RT 09/09/21 06:09 Ordered - Radiology Data #1 Image(s): Chest Image Reviewed: Yes I reviewed the patient's radiology results Stable emphysematous changes, no focal consolidation. - ECG Data Tracing #1 EKG this rhythm with a rate of 59 bpm, normal axis, no ST segment elevation, no ST depression, QRS 82 ms Medical Decision Narrative: 61-year-old female with history of severe COPD/emphysema, CAD, malnutrition/deconditioning with J-tube for supplemental nutrition presenting to the ED with shortness of breath. Differential diagnoses include COPD exacerbation, pneumonia, ACS, pleural effusion, PE, CHF exacerbation, electrode abnormalities, dehydration. Given this work-up will include chest x-ray, troponins, EKG, VBG, CMP, CBC, BNP. Patient is normotensive, not tachycardic, afebrile, on 3 L nasal cannula which is slightly increased
[2021-09-09 05:47] LABS: Potassium 4.1 mmoL/L (3.5-5.1); Sodium 138 mmol/L (136-145)
[2021-09-09 05:49] LABS: Alanine Aminotransferase 32 U/L (12-78); Aspartate Amino Transferase 38 U/L (14-36); Blood Urea Nitrogen 22 mg/dl (7-17); Creatinine Clearance Estimated 34 mL/min (50-200); Estimated Glomerular Filt Rate 162 ml/min (>60); GFR (African American) 196 ML/MIN (>60)
[2021-09-09 05:50] LABS: Albumin Level 4.3 g/dl (3.5-5.0); Albumin/Globulin Ratio 1.3 (1.1-1.8); Alkaline Phosphatase 104 U/L (38-126); Anion Gap 8.1 mEq/L (5-15); Bilirubin,Total 0.9 mg/dl (0.2-1.3); Calcium 8.7 mg/dl (8.4-10.2); Carbon Dioxide 36 mmol/L (22.0-30.0); Globulin 3.3 g/dL (1.3-3.2); Glucose 110 mg/dl (74-100); Total Protein,Serum 7.6 g/dl (6.3-8.2)
[2021-09-09 05:53] LABS: VBG PCO2 76.5 mmol/L (35-51)
[2021-09-09 05:59] LABS: NT Pro Brain Natriuretic Pep. 113 pg/mL (0-125)
[2021-09-09 06:10] LABS: Troponin I < 0.01 ng/ml (0.00-0.034)
[2021-09-09 06:11] LABS: Coronavirus 19, PCR Not Detected (NotDetected); Influenza A, PCR Not Detected (NotDetected); Influenza B, PCR Not Detected (NotDetected)
--- NOTE | 2021-09-09 06:40 | PC.NURSE ---
Dr. Regalado s/w Dr. Wogn (on-call for Dr. Vargas)
[2021-09-09 06:49] LABS: MANUAL DIFFERENTIAL MANUAL DIFFERENTIAL (MANUAL DIFF)
--- NOTE | 2021-09-09 07:08 | PC.NURSE ---
House notified for bed assignment
--- NOTE | 2021-09-09 07:25 | P.CONPHA_ITS ---
[facility] VTE Monitoring - Patient Demographics Admission date: 09/09/21 Report Date: 09/09/21 Time: 07:25 Allergies/Adverse Reactions: Patient Allergies erythromycin base [ERYTHROMYCIN BASE] Allergy (Intermediate, Verified 07/11/21 14:17) I-RASH Height: 1.57 m Weight: 36.287 kg Patient Problems: Current Active Problems COPD exacerbation (Acute) - VTE Risk Labs: VTE Related Lab Results Hgb 15.9 g/dL (12.2-16.2) 09/09/21 05:20 Hct 51.4 % (37.0-47.0) H 09/09/21 05:20 Plt Count 295 K/mm3 (142-424) 09/09/21 05:20 BUN 22 mg/dl (7-17) H 09/09/21 05:20 Creatinine 0.40 mg/dl (0.52-1.04) L 09/09/21 05:20 Estimated Creat Clear 34 mL/min (50-200) 09/09/21 05:20 - Prophylaxis VTE Prophylaxis Ordered?: Yes Types of VTE Prophylaxis: TEDS Knee High Location of Applied Device: Bilateral Lower Extremeties
--- NOTE | 2021-09-09 07:35 | PC.NURSE ---
Called report to Jerry. Updated pt on POC
[2021-09-09 07:38] LABS: Lymphocytes % 3 % (10-50); Monocytes % 2 % (2-9); Neutrophils % 95 % (42-76); Platelet Estimate Normal; RBC Morphology Normal; Total Cells Counted 100
--- NOTE | 2021-09-09 07:38 | PC.NURSE ---
Dr. Wong at BS
--- NOTE | 2021-09-09 07:38 | PC.NURSE ---
Dr. Wong at bedside
[2021-09-09 08:03] LABS: VBG Base Excess 6.1 mmol/L (-2.4-2.3); VBG HCO3 31.6 mmol/L (23-30); VBG Oxygen Saturation 92.2 % (50-70); VBG PH 7.36 mmol/L (7.31-7.41); VBG PO2 61.1 mmol/L (28-40); VBG Total CO2 33.3 mmol/L (23-27)
[2021-09-09 08:06] LABS: VBG PCO2 57.7 mmol/L (35-51)
--- NOTE | 2021-09-09 08:50 | HMH.HP ---
*Admission Date: 09/09/21 *Chief complaint: short of breath *History of present illness: Ms. 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 She presented to the ER with worsening shortness of breath. On arrival found to be hypercarbic with respiratory acidosis. Labs remarkable for significant elevation in her white cell count. Afebrile. Productive cough. Initiated on antibiotics and BiPAP. Admitted for further management to medicine. On assessment this morning, she had been on BiPAP for approximately 2 hours and responded well with improvement in her pH to normal. PCO2 approximately 60 which I suspect is her baseline with retention. States she feels anxious and is worried that this is the end . Denies any nausea or vomiting. Has not been using her tube feeds regularly as she states she is in the process of moving to [place] and it is hard to pack and move while her feeds are going. Additionally adds she was recently seen by cardiology and diagnosed with pulmonary hypertension. Started on diuretic however per their documentation she took the diuretic to use as needed. Unclear how often she uses. [facility] History I have reviewed the patient's past medical history: Yes Medical History: Reports:: Arrhythmia, Chronic Obstructive Pulmonary Disease (COPD), Coronary Artery Disease, Hyperlipidemia, Palpitations Denies:: Cancer, Diabetes Mellitus Type 1, Diabetes Mellitus Type 2, MRSA *Have you ever received a pneumonia vaccine?: Yes *Have you received a flu vaccine this season?: Yes Other Medical History: Reports: Anemia, Arthritis, Fibromyalgia, Sinus Problems Laterality Cases: Right: Other Other Surgeries: Yes: No Previous Surgery, Appendectomy, Cardiac Surgery, Colonoscopy, Hysterectomy-Total, Splenectomy, Tubal Ligation, Other Amputation: No Fractures: Yes (l femur) - *Social History Smoking Status: Current every day smoker Tobacco Type: cigarettes # Packs/Day (cigarettes): 1 #Yrs smoked (if former smoker): 40 Alcohol Intake: never Substance Use Type: denies use *Occupational Status:: other Housing: house Household Members: spouse, family *Travel in the last 8 weeks: None Family Hx:: No significant family history Review of Systems - Review of Systems Review of systems:: pertinent systems reviewed and negative unless documented below (14 point review of systems performed, pertinent positives and negatives as per HPI) Meds Home Medications Medication Instructions Recorded Confirmed Type Albuterol Sulfate [Ventolin HFA 1 - 2 puffs IH Q4-6H PRN 02/02/18 09/09/21 History Inhaler] Albuterol Sulfate [Albuterol 3 ml IH Q6H 05/18/18 09/09/21 History 0.083% 2.5mg/3mL neb] Aspirin [Aspir 81] 81 mg PO DAILY 06/12/18 09/09/21 History Tiotropium Br/Olodaterol HCl 2 puffs IH DAILY 08/02/19 09/09/21 History [Stiolto Respimat Inhal [place]] Famotidine [Pepcid 20mg Tablet] 20 mg PO BID 08/03/19 09/09/21 History [id number] 1 cap PO TID #100 cap 04/15/20 09/09/21 History 40,000-126,000-168,000 unit capsule, delay rel loratadine 10 mg tablet 10 mg PO DAILY PRN 04/15/20 09/09/21 History acetaminophen 325 mg tablet 325 mg PO BID PRN tab 06/27/21 09/09/21 History furosemide 20 mg tablet 20 mg PO DAILY PRN #30 tab 07/19/21 09/09/21 Rx Metoprolol Succinate [Metoprolol 50 mg PO BID 09/09/21 09/09/21 History Succinate 50mg Tablet*] Allergies Allergy/AdvReac Type Severity Reaction Status Date / Time erythromycin base Allergy Intermediate I-RASH Verified 07/11/21 14:17 [ERYTHROMYCIN BASE] Exam Vital signs and Labs for Last 24 Hours: Temp Pulse Resp BP Pulse Ox 98.3 F 80 22 112/52 L 96 09/09/21 08:16 09/09/21 08:16 09/09/21 08:16 09/09/21 08:16 09/09/21 07:30 Laboratory Results - last 24 hr 09/09/21 05:13: VBG pH 7.27 L, VBG pCO2 7
--- NOTE | 2021-09-09 11:42 | HMH.PHAINT ---
MEDICATION RECONCILIATION COMPLETED ON PATIENT USING EXTERNAL FILL HISTORY FROM PHARMACY. -ADI LAMB, GUANAKOD
--- NOTE | 2021-09-09 14:38 | CARE MANAGER ---
Spoke with patient regarding her conversation with Dr. Wong regarding her disease being terminal. Discussed Hospice and the possibility of having them speak with her regarding resources at discharge. patient states she would like to think about it. offered to have them come speak with her just for information, but she does not want that at this time. GURJIT Gonzalez
[2021-09-10] VITALS (10 sets, daily range): BP systolic 86–110; BP diastolic 51–60; PULSE 60–93; RESP 16–20; TEMP 36.4–37.2; O2SAT 92–97; BMI 15.4
--- NOTE | 2021-09-10 07:10 | PC.NURSE ---
Dr. Godinez notified of consult.
--- NOTE | 2021-09-10 08:44 | P.PN_ITS ---
Internal Medicine - PN: Subj *Date: 09/10/21 *Time: 08:44 Interval history: Patient continues to feel very tired. Dyspneic even at rest. Is unable to go to the bedside commode on her own. Does not really have any pains anywhere. Surgery consult about feeding tube reviewed. Personally discussed with surgeon. Appreciate input. Exam Vital signs and Labs for Last 24 Hours: Temp Pulse Resp BP Pulse Ox 98.3 F 82 17 88/51 L 92 L 09/10/21 08:00 09/10/21 08:00 09/10/21 08:00 09/10/21 08:00 09/10/21 08:00 I & O for Last 24 hours: Intake & Output 09/07/21 09/08/21 09/09/21 09/10/21 11:59 11:59 11:59 11:59 Intake Total 520 / 520 Output Total 400 / 400 Balance 120 / 120 Weight 85 lb 4.009 oz 83 lb 12.8 oz Microbiology Reports for the Last 24 Hours: Microbiology 09/09/21 05:22 Sputum - Expectorated Sputum Gram Stain - Final 09/09/21 05:22 Sputum - Expectorated Sputum Sputum Culture - Preliminary Narrative: Patient appears cachectic, terminally ill. Dry skin. Breathless at rest. Unable to complete sentences. Very poor air entry in her chest. Heart rate regular. Abdomen is soft. J-tube is noted. See surgery notes. No visible edema in her extremities. Clubbing noted. Assessment and Plan (1) Acute exacerbation of chronic obstructive airways disease Status: Acute Category: Medical Code(s): J44.1 - Chronic obstructive pulmonary disease with (acute) exacerbation (2) Anxiety Status: Acute Category: Medical Code(s): F41.9 - Anxiety disorder, unspecified (3) Exocrine pancreatic insufficiency Status: Chronic Category: Medical Code(s): K86.81 - Exocrine pancreatic insufficiency (4) SMAS (superior mesenteric artery syndrome) Status: Chronic Category: Medical Code(s): K55.1 - Chronic vascular disorders of intestine (5) Severe protein-calorie malnutrition Status: Chronic Category: Medical Code(s): E43 - Unspecified severe protein- calorie malnutrition (6) Cachexia Status: Chronic Category: Medical Code(s): R64 - Cachexia (7) Oxygen dependent Status: Chronic Category: Medical Code(s): Z99.81 - Dependence on supplemental oxygen (8) Pulmonary hypertension, moderate to severe Status: Chronic Category: Medical Code(s): I27.20 - Pulmonary hypertension, unspecified - Assessment and plan all Dx Assessment and Plan for all problems:: Patient with terminal COPD with multiple comorbidities. She acknowledges that she does not feel like she has very long to live. We had a long discussion about hospice care and I think the patient is ready for this at this point. We will have them interview her but before discharge. Restart tube feeds. Supportive care with respiratory and pulmonary toilet today.
--- NOTE | 2021-09-10 09:42 | HMH.GSCON ---
*Admission Date: 09/09/21 *Reason for consult:: Possibly replace percutaneous endoscopic jejunostomy tube *History of present illness: This is a 61-year-old female seen in consultation from her primary service for evaluation regarding possible replacement of percutaneous endoscopic jejunostomy tube. Forwarded from history and physical: Ms. 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 She presented to the ER with worsening shortness of breath. On arrival found to be hypercarbic with respiratory acidosis. Labs remarkable for significant elevation in her white cell count. Afebrile. Productive cough. Initiated on antibiotics and BiPAP. Admitted for further management to medicine. On assessment this morning, she had been on BiPAP for approximately 2 hours and responded well with improvement in her pH to normal. PCO2 approximately 60 which I suspect is her baseline with retention. States she feels anxious and is worried that this is the end . Denies any nausea or vomiting. Has not been using her tube feeds regularly as she states she is in the process of moving to [place] and it is hard to pack and move while her feeds are going. Additionally adds she was recently seen by cardiology and diagnosed with pulmonary hypertension. Started on diuretic however per their documentation she took the diuretic to use as needed. Unclear how often she uses. Review of Systems - *Cardiovascular Denies chest pain - *Respiratory Reports cough, Reports shortness of breath - *Gastrointestinal Denies abdominal pain [facility] History Medical History: Reports:: Arrhythmia, Congestive Heart Failure, Chronic Obstructive Pulmonary Disease (COPD), Coronary Artery Disease, Hyperlipidemia, Hypertension, Palpitations Denies:: Cancer, Diabetes Mellitus Type 1, Diabetes Mellitus Type 2, MRSA *Have you ever received a pneumonia vaccine?: No *Have you received a flu vaccine this season?: Yes Other Medical History: Reports: Anemia, Arthritis, Fibromyalgia, Sinus Problems Laterality Cases: Right: Other Other Surgeries: Yes: No Previous Surgery, Appendectomy, Cardiac Surgery, Colonoscopy, Hysterectomy-Total, Splenectomy, Tubal Ligation, Other Amputation: No Fractures: Yes (l femur) - *Social History Smoking Status: Former smoker Tobacco Type: cigarettes # Packs/Day (cigarettes): 1 #Yrs smoked (if former smoker): 40 Alcohol Intake: never Substance Use Type: denies use *Occupational Status:: retired Housing: house Household Members: spouse *Travel in the last 8 weeks: None Family Hx:: No significant family history Meds Home Medications Medication Instructions Recorded Confirmed Type Albuterol Sulfate [Ventolin HFA 2 puffs IH Q4HP PRN 02/02/18 09/09/21 History Inhaler] Albuterol Sulfate [Albuterol 3 ml IH Q6H 05/18/18 09/09/21 History 0.083% 2.5mg/3mL neb] Aspirin [Aspir 81] 81 mg PO DAILY 06/12/18 09/09/21 History Tiotropium Br/Olodaterol HCl 2 puffs IH DAILY 08/02/19 09/09/21 History [Stiolto Respimat Inhal [place]] [id number] 1 cap PO TID #100 cap 04/15/20 09/09/21 History 40,000-126,000-168,000 unit capsule, delay rel loratadine 10 mg tablet 10 mg PO DAILYP PRN 04/15/20 09/09/21 History acetaminophen 325 mg tablet 325 mg PO BIDP PRN tab 06/27/21 09/09/21 History furosemide 20 mg tablet 20 mg PO DAILY PRN #30 tab 07/19/21 09/09/21 Rx Fluticasone Propionate [Flonase 1 spray NS DAILY 09/09/21 09/09/21 History Allergy Relief NS] Metoprolol Succinate [Metoprolol 50 mg PO BID 09/09/21 09/09/21 History Succinate 50mg Tablet*] Omeprazole [Omeprazole 40mg 40 mg PO DAILY 09/09/21 09/09/21 History Capsule] Allergies Allergy/AdvReac Type Severity Reaction Status Date / Time erythromycin base Allergy Intermediate I-RASH Verified 07/11/21 14:17 [ERYTHROMYCIN BASE
--- NOTE | 2021-09-10 11:16 | PC.WOUNDNOTE ---
Spoke to nurse today, starting jevity 1.2 at 10ml/hr with goal rate of 35ml/hr. She is also receiving 3 small meals of MSOFT chopped. She was noted to consume 50% od dinner last night. Will continue to monitor.
--- NOTE | 2021-09-10 15:36 | PC.NURSE ---
PT IS SITTING UP IN BED WITH FAMILY AT BEDSIDE. ALERT AND ORIENTED X4. PT STATES SHE FEELS VERY WEAK AND SOA. O2 SATURATION HAS MAINTAINED 92-96% ON 3 L NC. J-TUBE NOTED TO THE LLQ. TUBE FEEDINGS RESTARTED AT 10 ML/HR AT 0930. PT REQUESTED FOR RATE ON TUBE FEEDS NOT TO BE INCREASED B/C SHE FEELS LIKE SHE IS FULL. NO GASTRIC RESIDUAL NOTED AT 1530. LUNG SOUNDS DIMINISHED. ABDOMEN SOFT/NON TENDER WITH ACTIVE BOWEL SOUNDS. WILL CONTINUE TO MONITOR.
--- NOTE | 2021-09-10 21:00 | PC.NURSE ---
pt requested tube feeds to be turned off due to cramping, pt states that she cramps at home on occasion when she needs to have a bowel movement, pt changed her own dressing around j tube per request, area cleansed around j tube with warm soapy water and sterile 4x4 placed. pt requested that she do it herself.
--- NOTE | 2021-09-10 22:30 | PC.NURSE ---
tube feeds resumed at this time, pt states cramping is gone, j tube flushed with 90cc warm water prior to restarting, no residual noted prior to flush, pt up to bsc at this time.
[2021-09-11] VITALS (13 sets, daily range): BP systolic 88–128; BP diastolic 46–60; PULSE 87–104; RESP 16–22; TEMP 36.6–37; O2SAT 93–98; BMI 15.7
--- NOTE | 2021-09-11 08:55 | HMH.ACPN2 ---
Internal Medicine - PN: Subj *Date: 09/11/21 *Time: 08:55 Interval history: Patient continues to feel fatigued, short of air with even minimal exertion, and some back pain above my kidneys -she points to her rib cage on both sides of her flanks up into her thoracic area. She remains alert and pleasant. Continues to feel like I do not have much time left. G-tube has been functioning well with minimal infusions. Exam Vital signs and Labs for Last 24 Hours: Temp Pulse Resp BP Pulse Ox 98.2 F 91 H 16 96/49 L 97 09/11/21 04:00 09/11/21 06:56 09/11/21 04:00 09/11/21 04:00 09/11/21 06:56 I & O for Last 24 hours: Intake & Output 09/08/21 09/09/21 09/10/21 09/11/21 11:59 11:59 11:59 11:59 Intake Total 520 / 520 772 / 772 Output Total 400 / 400 0 / 0 Balance 120 / 120 772 / 772 Weight 85 lb 4.009 oz 83 lb 12.8 oz 85 lb 14.4 oz Microbiology Reports for the Last 24 Hours: Microbiology 09/09/21 05:22 Sputum - Expectorated Sputum Gram Stain - Final 09/09/21 05:22 Sputum - Expectorated Sputum Sputum Culture - Preliminary Narrative: Unchanged exam, severe cachexia, dyspnea. Evidence of severe protein calorie malnutrition. Lungs have poor air movement, scattered rhonchi. Heart rate regular. Abdomen scaphoid and soft, G-tube site looks good. Distal edema not noted. Clubbing noted. Neurologically intact except for global and severe weakness. Assessment and Plan (1) Acute exacerbation of chronic obstructive airways disease Status: Acute Category: Medical Code(s): J44.1 - Chronic obstructive pulmonary disease with (acute) exacerbation (2) Anxiety Status: Acute Category: Medical Code(s): F41.9 - Anxiety disorder, unspecified (3) Exocrine pancreatic insufficiency Status: Chronic Category: Medical Code(s): K86.81 - Exocrine pancreatic insufficiency (4) SMAS (superior mesenteric artery syndrome) Status: Chronic Category: Medical Code(s): K55.1 - Chronic vascular disorders of intestine (5) Severe protein-calorie malnutrition Status: Chronic Category: Medical Code(s): E43 - Unspecified severe protein-calorie malnutrition (6) Cachexia Status: Chronic Category: Medical Code(s): R64 - Cachexia (7) Oxygen dependent Status: Chronic Category: Medical Code(s): Z99.81 - Dependence on supplemental oxygen (8) Pulmonary hypertension, moderate to severe Status: Chronic Category: Medical Code(s): I27.20 - Pulmonary hypertension, unspecified (9) Jejunostomy tube present Status: Acute Category: Medical Code(s): Z93.4 - Other artificial openings of gastrointestinal tract status - Assessment and plan all Dx Assessment and Plan for all problems:: Tube feedings restarted. Follow closely. Check labs tomorrow even her elevated WBC count on admission and will follow electrolytes. Terminal COPD. I had a discussion with her and her yesterday. They are agreeable to talking to hospice tomorrow they are currently in a great deal of flux with her living situation. They sold their house here in [place], anticipating a move to [place] so that she could spend some time with her son and his family in [place], [place]. Now she does not think she is able to physically make the trip. They are able to stay in their home for a while but they are very unsure about this. In addition to hospice being very appropriate for her terminal COPD I am hopeful that there are social workers could help with some issues like this as an outpatient. Start antibiotics with Levaquin and steroids given her exacerbation and breathing issues. Roxanol trial today to see if this will help symptomatic relief of her dyspnea and pain.
--- NOTE | 2021-09-11 17:54 | PC.NURSE ---
Patient sitting up in bed watching TV. Alert and oriented x4. Tube feed was increased to 15 mL/hr and tolerating well. Anxious about hospice consult that is tomorrow and is still unsure if she wants hospice. Placed new IV access rfa.
--- NOTE | 2021-09-11 21:00 | PC.NURSE ---
pt requested tube feedings be held at this time due to abdominal bloating, no residual noted, pt states she will call when she wants them resumed.
[2021-09-12] VITALS: O2SAT 95
--- NOTE | 2021-09-12 01:57 | PC.NURSE ---
pt still refusing to have tube feeds resumed at this time, pt states she wants to have BM first and requested to flush tube with some warm water, abdomen firm, nontender.
[2021-09-12 04:00] VITALS: BP 89/52; PULSE 82; RESP 20; TEMP 36.8; O2SAT 95
[2021-09-12 05:00] VITALS: BMI 16.9
[2021-09-12 06:17] LABS: Basophils % 0.2 % (0.1-2.0); Eosinophils # 0.1 K/mm3 (0.0-0.4); Eosinophils % 0.4 % (0.1-12.0); Hematocrit 40.7 % (37.0-47.0); Hemoglobin 12.4 g/dL (12.2-16.2); Lymphocytes # 0.7 K/mm3 (0.7-4.5); Lymphocytes % 5.6 % (10-50); Mean Corpuscular HGB Conc 30.5 g/dL (31.8-35.4); Mean Corpuscular Hemoglobin 32.1 pg (27.0-31.2); Mean Corpuscular Volume 105.1 fl (81-99); Mean Platelet Volume 9.1 fl (7.4-10.4); Monocytes # 0.4 K/mm3 (0.1-1.0); Monocytes % 3.3 % (1.7-9.3); Neutrophils % 90.5 % (37.0-80.0); Platelet Count 285 K/mm3 (142-424); Red Blood Count 3.87 M/mm3 (4.20-5.40); Red Cell Distribution Width 14.4 % (11.5-17.5); White Blood Count 12.2 K/mm3 (4.8-10.8)
[2021-09-12 06:18] VITALS: PULSE 83; PULSE 85; O2SAT 93
[2021-09-12 06:19] LABS: MANUAL DIFFERENTIAL MANUAL DIFFERENTIAL (MANUAL DIFF)
[2021-09-12 06:22] LABS: Chloride 99 mmol/L (98-107); Sodium 138 mmol/L (136-145)
[2021-09-12 06:25] LABS: Anion Gap 6.2 mEq/L (5-15); Carbon Dioxide 37 mmol/L (22.0-30.0); Potassium 4.2 mmoL/L (3.5-5.1)
[2021-09-12 06:28] LABS: Blood Urea Nitrogen 18 mg/dl (7-17); Calcium 8.3 mg/dl (8.4-10.2); Creatinine Clearance Estimated 39 mL/min (50-200); Estimated Glomerular Filt Rate 226 ml/min (>60); GFR (African American) 274 ML/MIN (>60); Glucose 122 mg/dl (74-100)
[2021-09-12 06:43] LABS: Hypochromasia 2+; Lymphocytes % 6 % (10-50); Macrocytosis 2+; Monocytes % 2 % (2-9); Neutrophils % 90 % (42-76); Platelet Estimate Normal; Rouleaux 1+; Total Cells Counted 100
[2021-09-12 08:00] VITALS: BP 112/57; BP 120/65; PULSE 84; PULSE 91; RESP 16; RESP 20; TEMP 36.8; O2SAT 96; O2SAT 97
--- NOTE | 2021-09-12 08:44 | HMH.DCSUM ---
General - General Admission date:: 09/09/21 Discharge date: 09/12/21 HPI HPI: Ms. 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 She presented to the ER with worsening shortness of breath. On arrival found to be hypercarbic with respiratory acidosis. Labs remarkable for significant elevation in her white cell count. Afebrile. Productive cough. Initiated on antibiotics and BiPAP. Admitted for further management to medicine. On assessment this morning, she had been on BiPAP for approximately 2 hours and responded well with improvement in her pH to normal. PCO2 approximately 60 which I suspect is her baseline with retention. States she feels anxious and is worried that this is the end . Denies any nausea or vomiting. Has not been using her tube feeds regularly as she states she is in the process of moving to [place] and it is hard to pack and move while her feeds are going. Additionally adds she was recently seen by cardiology and diagnosed with pulmonary hypertension. Started on diuretic however per their documentation she took the diuretic to use as needed. Unclear how often she uses. Hospital Course Hospital Course: Patient was admitted. J-tube feedings were held and surgery looked at the J-tube device and felt that it was still functional and the risks of replacement certainly outweigh the fact that we were still getting good function through the tube. Tube feedings were restarted very slowly and she tolerated these fairly well. Regards to her respiratory status patient stabilized, we started antibiotics and steroids yesterday and given her end-stage/terminal COPD we talked about hospice care. Patient wishes to defer this at this point since she would like to make a trip to [place] to see her son and some grandsons that she is never seen before before being admitted to hospice but she is willing to consider this as an outpatient. Roxanol was tried yesterday she noted that it helped her various pains and did help her breathe more easily. I think this is appropriate given her terminal emphysema with extremely poor life expectancy. We had a very eulalia discussion about this today and she acknowledges that her COPD is a terminal issue. Plan will be to discharge home today Roxanol, antibiotics, steroids, her normal oxygen and nebs and close follow-up in my office. Objective Vital signs: Temp Pulse Resp BP Pulse Ox 98.3 F 83 20 89/52 L 93 L 09/12/21 04:00 09/12/21 06:18 09/12/21 04:00 09/12/21 04:00 09/12/21 06:18 mild distress, thin, cachectic, chronically ill appearing - *Routine HEENT Exam Head: Present: normocephalic Eye: Present: EOMI, PERRL ENT: Present: mucous membranes moist - *Routine Neck Exam Present: supple - *Routine Respiratory Exam Present: accessory muscle use, rhonchi, diminished air movement - *Routine Cardiovascular Exam Present: RRR - *Routine Abdominal Exam Present: soft, normoactive bowel sounds. Absent: tenderness - *Routine Extremities Exam Present: clubbing. Absent: cyanosis, edema - *Routine Skin Exam Present: warm. Absent: rash - *Routine Neurological Exam Present: alert, oriented X3 Globally weak. - Detailed Eye Exam Eyelids: Bilateral normal inspection Results Labs on day of discharge: Labs from last 24 hours 09/12/21 09/12/21 05:39 05:39 WBC 12.2 H RBC 3.87 L Hgb 12.4 Hct 40.7 MCV 105.1 H MCH 32.1 H MCHC 30.5 L RDW 14.4 Plt Count 285 MPV 9.1 Neut % (Auto) 90.5 H Lymph % (Auto) 5.6 L [place] % (Auto) 3.3 Eos % (Auto) 0.4 Baso % (Auto) 0.2 Neut # (Auto) 11.0 H Lymph # (Auto) 0.7 [place] # (Auto) 0.4 Eos # (Auto) 0.1 Baso # (Auto) 0.0 Total Counted 100 Neutrophils % (Manual) 90 H Band Neutrophils % 2.0 Lymphocytes % (Manual) 6 L [place]
--- NOTE | 2021-09-12 10:38 | HMH.PHAINT ---
Spoke with the patient about their medication list. Went over the new medications that were being sent in for the patient. Also reviewed the medications that the patient was to continue on at home. When we spoke, the patient did not have any questions or concerns. The patient was provided a copy of the medication list.
[2021-09-12 10:55] VITALS: PULSE 94; PULSE 95; O2SAT 95
--- NOTE | 2021-09-13 16:00 | CARE MANAGER ---
Contacted patient regarding follow up from discharge. Patient states she was only taking half anti-hypertensive when she was in the hospital and is unsure if she needs to take a whole pill or half. She states the nurse told her to take half. Yesterday her blood pressure was elevated over 140 systolic. She is getting a blood pressure monitor to keep track of it. We discussed appropriate blood pressure ranges, when to contact the doctor, and causes of hypo and hypertension. Patient reports she is using morphine to help with her breathing as needed. She feels better but has postponed her [place] trip for a while. She has continued her tube feedings and doing well with them. She has 2 doctor appointments next week. GURJIT Gonzalez
== END 2021-09-12 15:08 | disposition home or self-care (01) | DRG 189 ==
LOC: ER 06:46 → 2ND 12:12
PROVIDERS: Admitting Provider Internal Medicine Adolescent Medicine; Emergency Provider Emergency Medicine; PCP Internal Medicine Adolescent Medicine; Visit Provider Internal Medicine Adolescent Medicine
DX: J96.22 Acute and chronic respiratory failure with hypercapnia (principal); E43 Unspecified severe protein-calorie malnutrition; K55.1 Chronic vascular disorders of intestine; Z68.1 Body mass index [BMI] 19.9 or less, adult; J43.9 Emphysema, unspecified; Z99.81 Dependence on supplemental oxygen; I27.20 Pulmonary hypertension, unspecified; Z93.4 Other artificial openings of gastrointestinal tract status; F17.210 Nicotine dependence, cigarettes, uncomplicated; M19.90 Unspecified osteoarthritis, unspecified site
CPT/HCPCS: 36415; 71045; 80048; 80053; 82803; 83880; 84484; 85007; 85025; 87070; 87205; 93005; 94640; 94761; 96374; 99285; C9803; J1956; U0003; U0005

== ENCOUNTER 2021-10-01 20:52 | Emergency (ER) | payer OTHER, SELFPAY ==
[2021-10-01 20:53] VITALS: BP 133/59; PULSE 80; RESP 22; TEMP 36.9; O2SAT 96; BMI 15.5
--- NOTE | 2021-10-01 21:08 | CT_ITS ---
PROCEDURE INFORMATION: Exam: CT Abdomen And Pelvis With Contrast Exam date and time: 10/01/2021 11:01 PM Age: 61 years old Clinical indication: Abdominal pain; Other: At j tube area; Prior surgery; Surgery date: 6+ months; Additional info: Painful j tube TECHNIQUE: Imaging protocol: Computed tomography of the abdomen and pelvis with contrast. Radiation optimization: All CT scans at this facility use at least one of these dose optimization techniques: automated exposure control; mA and/or kV adjustment per patient size (includes targeted exams where dose is matched to clinical indication); or iterative reconstruction. Contrast material: ISOVUE; Contrast volume: 75 ml; Contrast route: IV; COMPARISON: ABDPELW CT abdomen pelvis w con 09/16/2018 11:05 AM FINDINGS: Tubes, catheters and devices: Small bowel feeding tube bulb is similar in position to prior study. There is minimal adjacent soft tissue edema. Lungs: Mild scarring and atelectasis in the lower lungs. Unchanged 3 mm right lower lobe nodule image 1 series 3. No further imaging follow-up is warranted. Heart: Reflux of contrast into the hepatic veins suggests right heart dysfunction. Diaphragm: Postsurgical changes of the diaphragmatic hiatus. Liver: There is an 11 mm unchanged left hepatic hemangioma. Gallbladder and bile ducts: The common duct is larger in diameter than on prior study measuring 12 mm. No calcified stones. Pancreas: Normal. No ductal dilation. Spleen: Left subdiaphragmatic splenules. Adrenal glands: Normal. No mass. Kidneys and ureters: Nonobstructing left renal calculus. Stomach and bowel: Nonspecific small bowel wall thickening. The duodenum does not pass midline, which could be due to postsurgical changes or congenital malrotation. Moderate amount of stool in the colon. Appendix: No evidence of appendicitis. Intraperitoneal space: Unremarkable. No free air. No significant fluid collection. Vasculature: Moderate atherosclerotic disease of the arteries. Lymph nodes: Unremarkable. No enlarged lymph nodes. Urinary bladder: Unremarkable as visualized. Reproductive: Status post hysterectomy. Bones/joints: Unremarkable. No acute fracture. Soft tissues: Noncontributory. IMPRESSION: 1. Nonspecific small bowel wall thickening. Please exclude enteritis. 2. The common duct is larger in diameter than on prior study measuring 12 mm. If there is clinical evidence of biliary obstruction, consider MRCP to exclude choledocholithiasis versus mass lesion. 3. Small bowel feeding tube bulb is similar in position to prior study. There is minimal adjacent soft tissue edema. 4. Nonobstructing left renal calculus.
--- NOTE | 2021-10-01 21:28 | HMH.EDGENADL ---
ED Disposition Clinical Impression: Jejunostomy tube present Cellulitis Qualifiers: Site of cellulitis: trunk Site of cellulitis of trunk: abdominal wall Qualified Code(s): L03.311 - Cellulitis of abdominal wall Disposition: Home, Self-Care Condition on Discharge: Good Instructions: Cellulitis Additional Instructions: use meds and call pcp for follow up Prescriptions: clindamycin HCL [Clindamycin HCl] 300 mg PO TID #21 cap Transmission Status: Pending to [id number] Referrals: Solo Vargas MD [Primary Care Provider] - - Critical Care Critical Care Time: No Attestation: On 10/01/21, the high probability of a clinically significant, sudden or life threatening deterioration of the following system(s) required my full and direct attention, intervention and personal management. The time I documented below is in addition to time spent performing reported procedures but includes the following listed in this critical care notation. Medical Decision Making - Medical Records Medical records reviewed: Yes: I reviewed the patient's medical records. - Nick Inquiry Pt receiving controlled substance: No Vital Signs: 10/01/21 20:53 10/01/21 22:00 10/01/21 22:30 Temperature 98.5 F Temperature Source Oral Pulse Rate 85 84 Pulse Rate [Right] 80 Respiratory Rate 22 Blood Pressure 103/62 L 92/64 L Blood Pressure [Right Arm] 133/59 L Blood Pressure Mean [Right Arm] 83 02 Sat by Pulse Oximetry 96 94 L 96 Oxygen Delivery Method Nasal Cannula Nasal Cannula Oxygen Flow Rate (LPM) 3 4 - Lab Data Lab results reviewed: Yes: I reviewed the patient's lab results. Lab Results 10/01/21 21:05: WBC 13.5 H, RBC 4.47, Hgb 14.7, Hct 46.1, MCV 103.2 H, MCH 32.8 H, MCHC 31.8, RDW 13.8, Plt Count 327, MPV 9.2, Neut % (Auto) 73.0, Lymph % (Auto) 18.0, [place] % (Auto) 5.7, Eos % (Auto) 1.9, Baso % (Auto) 1.4, Neut # (Auto) 9.9 H, Lymph # (Auto) 2.4, [place] # (Auto) 0.8, Eos # (Auto) 0.3, Baso # (Auto) 0.2, ESR 16 04/30/22 21:05: Sodium 136, Potassium 4.6, Chloride 94 L, Carbon Dioxide 37 H, Anion Gap 9.6, BUN 15, Creatinine 0.40 L, Estimated Creat Clear 36, Estimated GFR 162, Est GFR ( Amer) 196, Glucose 119 H, Calcium 9.2, Total Bilirubin 0.7, AST 29, ALT 21, Alkaline Phosphatase 81, C-Reactive Protein 14.4 H, Total Protein 6.9, Albumin 4.0, Globulin 2.9, Albumin/Globulin Ratio 1.4, Procalcitonin 0.044 10/01/21 21:05: Lactate 0.8 10/01/21 21:05: Lipase 40 10/02/21 00:31: Urine Color Yellow, Urine Appearance Clear, Urine pH 6.5, Ur Specific [place] <= 1.005, Urine Protein Negative, Urine Glucose (UA) Negative, Urine Ketones Negative, Urine Blood Negative, Urine Nitrate Negative, Urine Bilirubin Negative, Urine Urobilinogen 1.0, Ur Leukocyte Esterase Negative, Urine WBC Occasional, Ur Squamous Epith Cells Occasional Result diagrams: 10/01/21 21:05 10/01/21 21:05 Orders (Tests/Meds): ED MEDICATIONS Discontinued Medications Generic Name Dose Route Start Last Admin Trade Name Freq PRN Reason Stop Dose Admin Diatrizoate Meglum/Diatrizoate Sod 30 ml 10/01/21 21:28 10/01/21 21:29 Diatrizoate Neyda 66% & Diatrizoate Na 10% 30ml Udc PO 10/01/21 21:29 30 ml ONCE ONE Administration Iopamidol 75 ml 10/01/21 23:14 10/01/21 23:15 Iopamidol-370 (76%);100ml Bottle IV 10/01/21 23:15 75 ml ONCE ONE Administration Sodium Chloride 10 ml 10/01/21 23:14 10/01/21 23:15 Sodium Chloride 0.9% 10ml Syr (Rad Only) IV 10/01/21 23:15 10 ml ONCE ONE Administration ORDERS Category Date Time Status Blood Culture Stat Micro 10/01/21 21:05 Received - CT Data CT Scan: Abdomen, Pelvis Time Received: 00:[address] Reviewed: Yes: I have viewed the radiologist's interpretation Preliminary Findings: Abnormal (see report ) Medical Decision Narrative: possible infection at site of j-tube but stable exam and ct and labs General Adult HPI - General Chief complaint: PAIN Stated c
--- NOTE | 2021-10-01 21:29 | PC.NURSE ---
Pt completed oral contrast @ 2124, fixed income trading vice president notified
[2021-10-01 21:33] LABS: Alanine Aminotransferase 21 U/L (12-78); Albumin/Globulin Ratio 1.4 (1.1-1.8); Alkaline Phosphatase 81 U/L (38-126); Aspartate Amino Transferase 29 U/L (14-36); Bilirubin,Total 0.7 mg/dl (0.2-1.3); Blood Urea Nitrogen 15 mg/dl (7-17); Calcium 9.2 mg/dl (8.4-10.2); Chloride 94 mmol/L (98-107); Creatinine Clearance Estimated 36 mL/min (50-200); Estimated Glomerular Filt Rate 162 ml/min (>60); GFR (African American) 196 ML/MIN (>60); Globulin 2.9 g/dL (1.3-3.2); Glucose 119 mg/dl (74-100); Lactic Acid 0.8 mmol/L (0.7-2.1); Potassium 4.6 mmoL/L (3.5-5.1); Sodium 136 mmol/L (136-145); Total Protein,Serum 6.9 g/dl (6.3-8.2)
[2021-10-01 21:38] LABS: C-Reactive Protein 14.4 mg/L (0-4)
[2021-10-01 21:39] LABS: Anion Gap 9.6 mEq/L (5-15); Carbon Dioxide 37 mmol/L (22.0-30.0)
[2021-10-01 21:45] LABS: Basophils # 0.2 K/mm3 (0-0.2); Basophils % 1.4 % (0.1-2.0); Eosinophils # 0.3 K/mm3 (0.0-0.4); Eosinophils % 1.9 % (0.1-12.0); Hematocrit 46.1 % (37.0-47.0); Hemoglobin 14.7 g/dL (12.2-16.2); Lymphocytes # 2.4 K/mm3 (0.7-4.5); Mean Corpuscular HGB Conc 31.8 g/dL (31.8-35.4); Mean Corpuscular Hemoglobin 32.8 pg (27.0-31.2); Mean Corpuscular Volume 103.2 fl (81-99); Mean Platelet Volume 9.2 fl (7.4-10.4); Monocytes # 0.8 K/mm3 (0.1-1.0); Monocytes % 5.7 % (1.7-9.3); Neutrophils # 9.9 K/mm3 (1.8-7.8); Platelet Count 327 K/mm3 (142-424); Red Blood Count 4.47 M/mm3 (4.20-5.40); Red Cell Distribution Width 13.8 % (11.5-17.5); White Blood Count 13.5 K/mm3 (4.8-10.8)
[2021-10-01 21:52] LABS: Procalcitonin 0.044 ng/mL (0.0-2.0)
[2021-10-01 22:00] VITALS: BP 103/62; PULSE 85; O2SAT 94
--- NOTE | 2021-10-01 22:04 | PC.NURSE ---
Pt given blanket and pillow for comfort
--- NOTE | 2021-10-01 22:04 | INFXCTL.NOTE ---
Pt given pillow and blanket for comfort
[2021-10-01 22:30] VITALS: BP 92/64; PULSE 84; O2SAT 96
[2021-10-01 22:31] LABS: Erythrocyte Sedimentation Rate 16 mm/hr (0-30)
--- NOTE | 2021-10-02 00:13 | PC.NURSE ---
Pt able to use wheelchair to get to bathroom
[2021-10-02 00:38] LABS: Microscopic, Urine URINE MICROSCOPIC (MICROSCOPIC)
[2021-10-02 00:43] LABS: Lipase 40 U/L (23-300)
[2021-10-02 00:50] LABS: Appearance,Urine CLEAR (Clear); Bilirubin,Urine Negative (Negative); Blood, Urine Negative (Negative); Color,Urine YELLOW (Yellow); Glucose,Urine (UA) Negative (Negative); Ketones,Urine Negative (Negative); Leukocyte Esterase,Urine Negative (Negative); Nitrate,Urine Negative (Negative); PH,Urine 6.5 (5.0-8.5); Protein,Urine Negative (Negative); Specific Gravity, Urine <= 1.005 (1.005-1.030)
[2021-10-02 00:56] LABS: Squamous Epithelial Cell,Urine Occasional #/hpf (0-5); WBC,Urine Occasional #/hpf (0-3)
[2021-10-02 01:37] VITALS: BP 90/54; PULSE 80; RESP 22; TEMP 36.7; O2SAT 98
== END 2021-10-02 01:43 | disposition home or self-care (01) ==
PROVIDERS: Emergency Provider Emergency Medicine; PCP Internal Medicine Adolescent Medicine
DX: L03.311 Cellulitis of abdominal wall (principal); R00.0 Tachycardia, unspecified; I27.20 Pulmonary hypertension, unspecified; I50.9 Heart failure, unspecified; I25.119 Atherosclerotic heart disease of native coronary artery with unspecified angina pectoris; E78.5 Hyperlipidemia, unspecified; M19.90 Unspecified osteoarthritis, unspecified site; M79.7 Fibromyalgia; D64.9 Anemia, unspecified; J44.9 Chronic obstructive pulmonary disease, unspecified; Z79.1 Long term (current) use of non-steroidal anti-inflammatories (NSAID); Z79.51 Long term (current) use of inhaled steroids; Z79.82 Long term (current) use of aspirin; Z79.899 Other long term (current) drug therapy; Z88.0 Allergy status to penicillin; Z88.1 Allergy status to other antibiotic agents; Z88.3 Allergy status to other anti-infective agents; Z87.891 Personal history of nicotine dependence
CPT/HCPCS: 74177; 80053; 81001; 83605; 83690; 84145; 85025; 85651; 86140; 87040; 96375; 99284; Q9967

== ENCOUNTER → 2022-04-13 10:42 | Outpatient (CLI) | payer OTHER, SELFPAY ==
[2022-04-13 10:54] LABS: Microscopic, Urine URINE MICROSCOPIC (MICROSCOPIC)
[2022-04-13 12:38] LABS: Appearance,Urine CLEAR (Clear); Bilirubin,Urine Negative (Negative); Blood, Urine Negative (Negative); Color,Urine YELLOW (Yellow); Glucose,Urine (UA) Negative (Negative); Ketones,Urine TRACE (Negative); Leukocyte Esterase,Urine Negative (Negative); Nitrate,Urine Negative (Negative); Protein,Urine Negative (Negative); Urobilinogen,Urine 0.2 EU/dl (0.2)
[2022-04-13 12:52] LABS: Amorphous Sediment,Urine 1+ /lpf; Bacteria,Urine 2+ /lpf; WBC,Urine Occasional #/hpf (0-3)
== END ==
PROVIDERS: PCP Family Medicine Hospice and Palliative Medicine; Visit Provider Family Medicine Hospice and Palliative Medicine
DX: N39.0 Urinary tract infection, site not specified (principal)
CPT/HCPCS: 81001; 87086

== ENCOUNTER 2022-04-18 16:27 | Inpatient (IN) | payer OTHER, SELFPAY ==
[2022-04-18] VITALS (9 sets, daily range): BP systolic 100–132; BP diastolic 41–68; PULSE 73–94; RESP 21–26; TEMP 36.1–36.9; O2SAT 93–100; BMI 16.7; BMI 13.4
--- NOTE | 2022-04-18 16:43 | PC.NURSE ---
RT called for ABG
[2022-04-18 16:56] LABS: ABG Base Excess 30.9 mmol/L (-2.4-2.3); ABG HCO3 57.3 mmhg (22.0-26.0); ABG Oxygen Saturation 97 % (90-100); ABG PO2 92.1 mmhg (80-100)
[2022-04-18 16:58] LABS: Oxygen 5LPM %
[2022-04-18 16:59] LABS: ABG PCO2 119.2 mmhg (35.0-45.0); Allen's Test Non Applicable; Source Right Radial
[2022-04-18 17:02] LABS: Basophils # 0.1 K/mm3 (0-0.2); Eosinophils % 0.1 % (0.1-12.0); Hematocrit 49.7 % (37.0-47.0); Hemoglobin 14.6 g/dL (12.2-16.2); Lymphocytes # 1.6 K/mm3 (0.7-4.5); Lymphocytes % 11.6 % (10-50); Mean Corpuscular HGB Conc 29.4 g/dL (31.8-35.4); Mean Corpuscular Hemoglobin 32.4 pg (27.0-31.2); Mean Platelet Volume 11.3 fl (7.4-10.4); Monocytes # 0.7 K/mm3 (0.1-1.0); Monocytes % 5.3 % (1.7-9.3); Neutrophils # 11.2 K/mm3 (1.8-7.8); Neutrophils % 82.1 % (37.0-80.0); Platelet Count 160 K/mm3 (142-424); Red Blood Count 4.52 M/mm3 (4.20-5.40); Red Cell Distribution Width 14.7 % (11.5-17.5); White Blood Count 13.6 K/mm3 (4.8-10.8)
[2022-04-18 17:03] LABS: Chloride 81 mmol/L (98-107); Potassium 4.5 mmoL/L (3.5-5.1); Sodium 139 mmol/L (136-145)
--- NOTE | 2022-04-18 17:03 | PC.NURSE ---
respiratory placing pt on bipap
[2022-04-18 17:06] LABS: Alanine Aminotransferase 55 U/L (12-78); Albumin Level 3.9 g/dl (3.5-5.0); Albumin/Globulin Ratio 1.4 (1.1-1.8); Alkaline Phosphatase 81 U/L (38-126); Aspartate Amino Transferase 32 U/L (14-36); Bilirubin,Total 0.6 mg/dl (0.2-1.3); Blood Urea Nitrogen 23 mg/dl (7-17); Creatinine Clearance Estimated 36 mL/min (50-200); Estimated Glomerular Filt Rate 225 ml/min (>60); GFR (African American) 273 ML/MIN (>60); Globulin 2.7 g/dL (1.3-3.2); Total Protein,Serum 6.6 g/dl (6.3-8.2)
[2022-04-18 17:07] LABS: Calcium 9.4 mg/dl (8.4-10.2); Glucose 103 mg/dl (74-100)
[2022-04-18 17:20] LABS: Anion Gap 11.5 mEq/L (5-15)
[2022-04-18 17:23] LABS: Carbon Dioxide 51 mmol/L (22.0-30.0)
--- NOTE | 2022-04-18 17:23 | PC.NURSE ---
mittens placed on pt to maintain bipap
--- NOTE | 2022-04-18 17:24 | PC.NURSE ---
LAb called with Co2 of 51. Repeated and verified. Notified MD at this time. No new orders.
--- NOTE | 2022-04-18 17:59 | XR_ITS ---
PROCEDURE INFORMATION: Exam: XR Chest Exam date and time: 04/18/2022 6:21 PM Age: 62 years old Clinical indication: Shortness of breath; Additional info: SOA TECHNIQUE: Imaging protocol: Radiologic exam of the chest. Views: 1 view. COMPARISON: CR XR CHEST PORTABLE 09/09/2021 5:27 AM FINDINGS: Lungs: Study quality is limited due to overlying extrinsic artifact, particularly involving the right upper lobe. The lungs are hyperaerated, as before, suggesting COPD/emphysema. Hypo vascularity to the lung apices suggest COPD. There is increase in patchy opacity involving the inferolateral right lower lobe. Minimal increased opacities are also suggested involving the inferolateral left lower lobe. Lungs are otherwise overall stable, as visualized. Pleural spaces: Blunting of both costophrenic angles is stable and may reflect trace effusions or pleural scarring. Negative for pneumothorax. Heart/Mediastinum: Cardiac silhouette and pulmonary vasculature are within range of normal. Surgical clips are re-identified in the region of the GE junction. Bones/joints: There is no evidence of acute fracture. IMPRESSION: 1. Hypovascularity to the lung apices and hyperaeration suggest COPD /emphysema. 2. Increase in patchy opacity involving the inferolateral right lower lobe, into a lesser extent involving the left lower lobe since prior exam. Correlate clinically. Findings could reflect pneumonia but cannot exclude other entities including edema, or aspiration in the appropriate clinical setting.
--- NOTE | 2022-04-18 18:07 | PC.NURSE ---
LAB CALLED FOR ADDITIONAL BLOOD
[2022-04-18 18:10] LABS: Coronavirus 19, PCR Not Detected (NotDetected); Influenza A, PCR Not Detected (NotDetected); Influenza B, PCR Not Detected (NotDetected)
--- NOTE | 2022-04-18 18:14 | PC.NURSE ---
RADIOLOGY HERE FOR CXR
--- NOTE | 2022-04-18 18:21 | HMH.EDGENADL ---
Discharge Plan Disposition Patient Disposition: Admitted as Observation Discharge ED Provider: Ion [facility] Adult HPI General Chief complaint: Shortness of Breath/Dyspnea Stated complaint: SOA/AMS Time Seen by Provider: 04/18/22 17:58 Mode of Arrival: EMS Source of Information: EMS Limitations: No Limitations Description of Symptoms (Recalled from ER Triage Doc. by RN): pt to ed via ems c/o ams and shortness of breath. pt is a hospice pt and was advised to come to the ed. History of Present Illness HPI narrative: Patient presents with shortness of air. H&P is limited to the patient being lethargic. She is a hospice patient and that was at home when family was noted decline in respiratory status and called EMS. My direct questioning she denies chest pain although again she is somewhat lethargic. Related Data Home Medications Medication Instructions Recorded Confirmed albuterol sulfate 90 mcg/actuation 2 puffs IH Q4HP PRN Shortness Of 02/02/18 09/29/21 aerosol inhaler Breath Or Wheezing albuterol sulfate 2.5 mg/3 mL 3 ml IH Q6H COPD 05/18/18 09/29/21 (0.083 %) solution for nebulization aspirin 81 mg tablet,delayed 81 mg PO DAILY HEART HEALTH 06/12/18 09/29/21 release tiotropium 2.5 mcg-olodaterol 2.5 2 puffs IH DAILY COPD 08/02/19 09/29/21 mcg/actuation mist for inhalation [id number] 1 cap PO TID PANCREATIC ENZYMES 04/15/20 09/29/21 40,000-126,000-168,000 unit #100 caps capsule, delay rel loratadine 10 mg tablet 10 mg PO DAILYP PRN Allergy 04/15/20 09/29/21 symptoms acetaminophen 325 mg tablet 325 mg PO BIDP PRN Pain 06/27/21 09/29/21 fluticasone propionate 50 1 spray NS DAILY Allergy symptoms 09/09/21 09/29/21 mcg/actuation nasal spray,suspension omeprazole 40 mg capsule,delayed 40 mg PO DAILY GERD 09/09/21 09/29/21 release Previous Rx's Medication Instructions Recorded furosemide 20 mg tablet (Lasix) 20 mg PO DAILY PRN edema/shortness 07/19/21 of breath #30 tabs cefdinir 300 mg capsule 300 mg PO BID #14 caps 09/12/21 morphine 20 mg/5 mL (4 mg/mL) oral 10 mg (2.5 mL) PO Q4HP PRN 09/12/21 solution Shortness or air or pain #30 mL metoprolol succinate 50 mg 50 mg PO DAILY #30 tabs 09/29/21 tablet,extended release 24 hr (Toprol XL) clindamycin HCl 300 mg capsule 300 mg PO TID #21 caps 10/02/21 Allergies Allergy/AdvReac Type Severity Reaction Status Date / Time erythromycin base Allergy Intermediate I-RASH Verified 09/29/21 11:43 [ERYTHROMYCIN BASE] [facility] Medical History (Updated 10/02/21 @ 01:18 by Cj Dan MD) Abnormal EKG Angina pectoris CAD (coronary artery disease) Chronic obstructive pulmonary disease (COPD) Hx of pulmonary embolus Pulmonary hypertension, moderate to severe SOB (shortness of breath) Tachycardia Social History Smoking Status: Never smoker second hand exposure: Yes alcohol intake: never substance use type: denies use current occupational status: retired Travel in the last 8 weeks: Inside the [facility] household members: spouse housing: house 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 current occupational exposures/hazards: No caffeine: Yes ROS Obtained: Yes All systems reviewed & no additional complaints except as documented Physical Exam Narrative Physical exam: Cachexia General General appearance: alert and lethargic Head Head exam: atraumatic and normocephalic Eye Eye exam: Present normal appearance ENT ENT exam: Present normal exam Neck Neck exam: Present normal inspection Chest Chest inspection: Present normal inspection Respiratory Respiratory exam: Present respiratory distress, prolonged expiratory phase and other (Decreased air movement.) Cardiovascular Cardiovascular exam: Present tachycardia Abdominal Exam Abdominal exam: Present soft; Absent tenderness Extremities Exam Extremities exam: Present normal inspection Back Exam Back exam: Present normal in
--- NOTE | 2022-04-18 18:36 | PC.NURSE ---
Lab at bedside attempting blood draws. Spoke with daughter on phone and updated her on POC
[2022-04-18 19:02] LABS: Lactic Acid 0.8 mmol/L (0.7-2.1)
--- NOTE | 2022-04-18 19:03 | PC.NURSE ---
Dr. Alicia villegas
--- NOTE | 2022-04-18 19:07 | PC.NURSE ---
speaking with Dr. Vargas
--- NOTE | 2022-04-18 19:07 | PC.NURSE ---
DR RODRIGUEZ SPEAKING WITH DR NASH
--- NOTE | 2022-04-18 19:10 | PC.NURSE ---
HOUSE CALLED FOR BED
--- NOTE | 2022-04-18 21:16 | PC.NURSE ---
PT ARRIVED VIA STRETCHER TO FLOOR AT THIS TIME
[2022-04-19] VITALS (9 sets, daily range): BP systolic 113–124; BP diastolic 74–93; PULSE 89–116; RESP 20–31; TEMP 36.4–36.5; O2SAT 87–94; BMI 13.4
--- NOTE | 2022-04-19 | PC.NURSE ---
notified Dr. callejas of pts requesting home medications for tonight. new orders received and carried out
--- NOTE | 2022-04-19 00:20 | PC.NURSE ---
RN notified of Sun.
--- NOTE | 2022-04-19 03:28 | PC.NURSE ---
notified of pt wheezing with SOA. Orders received for duonebs q2hr prn
--- NOTE | 2022-04-19 07:53 | SW/DCPLANNER ---
Addendum entered by Tammy Quincy 04/21/22 09:24: Patient will discharge home today w/ family and resume Hospice Care w/ [facility]. Addendum entered by [facility] 04/20/22 14:46: Patient will discharge home tomorrow morning and resume Hospice services at home w/ family. Addendum entered by [facility] 04/20/22 13:48: A.D. w/ [facility] will be speaking with family today in attempt to discharge patient back home w/ family and Hospice services. Addendum entered by Tammy Quincy 04/19/22 11:28: The plan for this patient is to be Hospice inpatient as of 04/18/22 on admission. I have followed up with nursing staff (Roselyn Lawton) and Hospice nurse (Pardeep). Addendum entered by Tammy Quincy 04/19/22 09:28: has requested that [facility] has a discussion w/ patient and family regarding the Hospice Care Center. I have updated Summer w/ [facility] regarding situation. Original Note: This patient is currently established with services from [facility]. Pardeep followed up with me this AM and stated that stay is related to Hospice diagnosis. I will follow up w/ A.D. once MD rounds and fax additional patient information.
--- NOTE | 2022-04-19 08:56 | EXP.HP ---
History of Present Illness *Admission Date: 04/18/22 *Reason for visit:: Shortness of air/confusion *History of present illness: 62-year-old female with end-stage/terminal COPD who is on hospice care at home. She has a host of other medical problems including pancreatic insufficiency, with a J-tube in place. She also has severe anxiety disorder, severe protein calorie malnutrition. She has been under hospice care at home for the past several months. Apparently over the past 48 hours she is declined, her family was psychologically/physically unable to watch her decline and was afraid she would at home so brought her to the emergency department. In the emergency department found to have severe hypercapnia, placed on BiPAP and transferred to the floor in terminal condition for further evaluation. [facility] Medical History Abnormal EKG Angina pectoris CAD (coronary artery disease) Chronic obstructive pulmonary disease (COPD) Hx of pulmonary embolus Pulmonary hypertension, moderate to severe SOB (shortness of breath) Tachycardia Family History (Updated 04/19/22 @ 02:44 by Magali Yusuf RN) No significant family history Social History Smoking Status: Never smoker second hand exposure: Yes alcohol intake: never substance use type: denies use current occupational status: retired Travel in the last 8 weeks: Inside the [place] household members: spouse housing: house 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 current occupational exposures/hazards: No caffeine: Yes Review of Systems Review of Systems Review of systems:: unable to obtain Meds Home Medications and Allergies Home Medications Medication Instructions Recorded Confirmed Type albuterol sulfate 90 mcg/actuation 2 puffs IH Q4HP PRN Shortness Of 02/02/18 09/29/21 History aerosol inhaler Breath Or Wheezing albuterol sulfate 2.5 mg/3 mL 3 ml IH Q6H COPD 05/18/18 09/29/21 History (0.083 %) solution for nebulization aspirin 81 mg tablet,delayed 81 mg PO DAILY HEART HEALTH 06/12/18 09/29/21 History release tiotropium 2.5 mcg-olodaterol 2.5 2 puffs IH DAILY COPD 08/02/19 09/29/21 History mcg/actuation mist for inhalation [id number]-rtykhroe-rbmyzcj 1 cap PO TID PANCREATIC ENZYMES 04/15/20 09/29/21 History 40,000-126,000-168,000 unit #100 caps capsule, delay rel loratadine 10 mg tablet 10 mg PO DAILYP PRN Allergy 04/15/20 09/29/21 History symptoms acetaminophen 325 mg tablet 325 mg PO BIDP PRN Pain 06/27/21 09/29/21 History furosemide 20 mg tablet (Lasix) 20 mg PO DAILY PRN edema/shortness 07/19/21 09/29/21 Rx of breath #30 tabs fluticasone propionate 50 1 spray NS DAILY Allergy symptoms 09/09/21 09/29/21 History mcg/actuation nasal spray,suspension omeprazole 40 mg capsule,delayed 40 mg PO DAILY GERD 09/09/21 09/29/21 History release cefdinir 300 mg capsule 300 mg PO BID #14 caps 09/12/21 09/29/21 Rx morphine 20 mg/5 mL (4 mg/mL) oral 10 mg (2.5 mL) PO Q4HP PRN 09/12/21 09/29/21 Rx solution Shortness or air or pain #30 mL metoprolol succinate 50 mg 50 mg PO DAILY #30 tabs 09/29/21 09/29/21 Rx tablet,extended release 24 hr (Toprol XL) clindamycin HCl 300 mg capsule 300 mg PO TID #21 caps 10/02/21 Rx diazepam 10 mg tablet 10 mg PO Q6 Anxiety 04/18/22 04/18/22 History oxycodone 20 mg tablet 20 mg PO DAILYP PRN Pain 04/18/22 04/18/22 History prednisone 20 mg tablet 20 mg PO DAILY COPD 04/18/22 04/18/22 History New Prescriptions to Start Prescriptions: Allergies Allergy/AdvReac Type Severity Reaction Status Date / Time erythromycin base Allergy Intermediate I-RASH Verified 09/29/21 11:43 [ERYTHROMYCIN BASE] Exam Data for Last 24 hours Vital signs and Labs for Last 24 Hours: Temp Pulse Resp BP Pulse Ox FiO2 97.6 F 116 H 31 H 113/93 H 94 L 35 04/19/22 08:
--- NOTE | 2022-04-19 14:05 | P.CONPHA_ITS ---
Pharmacy Intervention Comments: Medication reconcilation completed via chart review and MAR from [facility]. -Mila Fountain, PharmD Candidate 2022
--- NOTE | 2022-04-19 17:52 | PC.NURSE ---
PT IS RESTING IN BED WITH FAMILY AT BEDSIDE. ALERT AND ORIENTED X3. PT HAS BEEN DIFFICULT TO COMMUNICATE WITH DUE TO WEARING THE BIPAP MASK. WHEN HOSPICE EVALUATED PT THIS MORNING SHE PUT IN WRITING SHE WANTED TO AND REQUESTED FOR THE BIPAP TO BE REMOVED AFTER SHE WAS ABLE TO SEE ALL OF HER CHILDREN/GRANDCHILDREN. PT IS STILL WAITING ON A SON TRAVELING FROM [place]. MEDICATED PER MAR WITH MORPHINE AND ATIVAN. PT CONTINUES TO SIT UP IN THE BED IN TRIPOD POSITION. BIPAP HAS BEEN REMOVED OFF AND ON PER PT REQUEST FOR SIPS OF WATER. WILL CONTINUE TO MONITOR.
[2022-04-20] VITALS (7 sets, daily range): BP systolic 91–114; BP diastolic 62–73; PULSE 99–120; RESP 14–32; TEMP 36.4–36.8; O2SAT 92–94
--- NOTE | 2022-04-20 00:03 | PC.NURSE ---
pt taken off bipap per family request at this time
--- NOTE | 2022-04-20 08:25 | EXP.ACUTE.PN ---
Subjective *Date: 04/20/22 *Time: 08:25 Interval history: Patient did well overnight, was able to come off BiPAP, had an extensive visiting session with a multiplicity of family members yesterday and this was apparently very psychologically fulfilling for her. She is now eating some corn flakes and is on 5 L of nasal cannula. She is able to recognize me and seems excited about the possibility of going home. Medical Exam Vital signs and Labs for Last 24 Hours: Vital Signs Temp Pulse Resp BP Pulse Ox 04/20/22 07:39 98.3 F 117 H 16 114/62 94 L 04/19/22 17:31 28 H 04/19/22 13:42 24 Intake and Output 04/19/22 04/20/22 04/20/22 19:59 03:59 11:59 Intake Total 30 / 30 Output Total 300 / 300 0 / 300 0 / 300 Balance -300 / -270 0 / -270 30 / -270 Intake: Intake, Oral Amount 30 / 30 Output: Output, Urine Amount 300 / 300 0 / 300 0 / 300 Other: Number of Unmeasured Voids 0 0 Weight 68 lb 4.082 oz Patient Weight 04/20/22 11:59 Weight 68 lb 4.082 oz I & O for Labs for Last 24 Hours: Intake & Output 04/17/22 04/18/22 04/19/22 04/20/22 11:59 11:59 11:59 11:59 Intake Total 30 / 30 Output Total 0 / 0 300 / 300 Balance 0 / 0 -270 / -270 Weight 68 lb 5 oz 68 lb 4.082 oz Comment:: Cachectic, significant protein calorie malnutrition visible. Heart rate regular. Almost no air movement auscultated in the chest. No edema or clubbing. Extremities are cool in her feet and hands Assessment and Plan *Assessment and plan (1) Acute and chronic respiratory failure: Status: Resolved Category: Medical Code(s): J96.20 - Acute and chronic respiratory failure, unspecified whether with hypoxia or hypercapnia (2) Severe protein-calorie malnutrition: Status: Chronic Category: Medical Code(s): E43 - Unspecified severe protein-calorie malnutrition (3) Chronic obstructive pulmonary disease (COPD): Status: Chronic Qualifiers: COPD type: unspecified COPD Qualified Code(s): J44.9 - Chronic obstructive pulmonary disease, unspecified Category: Medical Code(s): J44.9 - Chronic obstructive pulmonary disease, unspecified (4) Pulmonary hypertension, moderate to severe: Status: Chronic Category: Medical Code(s): I27.20 - Pulmonary hypertension, unspecified Plan Patient remains terminally ill However has stabilized. Will discuss with hospice nurses whether or not she can continue her palliative/terminal care at home.
--- NOTE | 2022-04-20 09:52 | DIET.NUTRFU ---
was able to remove BiPap mask today and ate 25% of breakfast. Patient is not receiving IVF at this time. Labs indicate good hydration. Will continue to follow patients wishes on comfort care.
--- NOTE | 2022-04-20 17:05 | PC.NURSE ---
PT IS RESTING IN BED WITH FAMILY AT BEDSIDE. THIS MORNING PT WAS SITTING UP IN THE BED IN TRIPOD POSITION EATING AND DRINKING AND VERBALLY COMMUNICATING WITH FAMILY. PT HAS BEEN ON 5 L NC T/O THE SHIFT. O2 SATURATION HAS MAINTAINED IN THE MID 80'S. LATER THIS AFTERNOON PT HAS BEEN LESS RESPONSIVE AND HAS BEEN SLEEPING MORE. MEDICATED PER MAR FOR PAIN/BREATHING/AGITATION WITH MORPHINE AND ATIVAN. PT HAS BEEN TURNED AND REPOSITIONED FREQUENTLY PER FAMILY REQUEST. DRESSING NOTED TO BUTTOCKS TO PREVENT BREAKDOWN. LUNG SOUNDS HAVE VERY MINIMAL AIR MOVEMENT. CONVERSATION WAS HAD WITH PT'S ABOUT PT GOING HOME TODAY AND PT'S STATED HE WOULD MUCH RATHER PT STAY TILL AT LEAST TOMORROW SO HE CAN HAVE MORE TIME TO GET EVERYTHING ORGANIZED AT HOME. PT'S STATED HE DID UNDERSTAND IF PT STAYS ANOTHER NIGHT THAT SHE MAY NOT MAKE IT HOME TOMORROW. AND HOSPICE BOTH NOTIFIED OF PLAN. WILL CONTINUE TO MONITOR.
--- NOTE | 2022-04-20 21:32 | PC.NURSE ---
She is alert to person but it is difficult to understand her speech because she is so soft spoken. She also does not answer all questions. Spoke with family and they stated they would notify staff when they want her turned. Family wants her to wear her pajamas home tomorrow. She continues on 5LPM n/c.
[2022-04-21] VITALS: PULSE 96
[2022-04-21 04:00] VITALS: PULSE 90
--- NOTE | 2022-04-21 07:35 | PC.NURSE ---
Patient has slept in tripod position this shift (this nurse 1a-7a). O2 sats >92%. in room resting with eyes closed.
[2022-04-21 08:00] VITALS: BP 93/65; PULSE 100; PULSE 92; RESP 16; TEMP 36.8; O2SAT 5; O2SAT 90
--- NOTE | 2022-04-21 08:51 | EXP.DC.SUM ---
General Admission date:: 04/18/22 Discharge date: 04/21/22 HPI HPI HPI: 62-year-old female with end-stage/terminal COPD who is on hospice care at home. She has a host of other medical problems including pancreatic insufficiency, with a J-tube in place. She also has severe anxiety disorder, severe protein calorie malnutrition. She has been under hospice care at home for the past several months. Apparently over the past 48 hours she is declined, her family was psychologically/physically unable to watch her decline and was afraid she would at home so brought her to the emergency department. In the emergency department found to have severe hypercapnia, placed on BiPAP and transferred to the floor in terminal condition for further evaluation. Hospital Course Hospital Course Hospital Course: Patient was admitted for supportive care/terminal care. She was initially placed on BiPAP in the ER. However, once she had visited with family members who she had not seen in a while she wished BiPAP to be discontinued and expressed her wish to continue her palliative/terminal care with no aggressive intervention. She was watched here for a day or so, Hammond catheter was placed for help with turning and skin breakdown with wetness episodes. This morning she is stable but terminal. Talked with her and her about going home. They do wish to go home and we will reinitiate hospice care at home. She should have oxycodone and Ativan at home, but we will coordinate with hospice nurses and physicians whether or not new prescriptions are needed when she arrives at home. I reminded her about guarding medications from diversion issues. There has been some question about this at home with her multiplicity of family members who are in and out. She has oxygen and nebulizer treatments. I anticipate her outcome to be terminal. Exam Data for Last 24 hours Vital signs and Labs for Last 24 Hours: Temp Pulse Resp BP Pulse Ox FiO2 97.5 F L 90 16 91/73 L 92 L 35 04/20/22 19:57 04/21/22 04:00 04/20/22 19:57 04/20/22 19:57 04/20/22 20:00 04/19/22 06:20 I & O for Last 24 hours: Intake & Output 04/18/22 04/19/22 04/20/22 04/21/22 11:59 11:59 11:59 11:59 Intake Total 30 / 30 100 / 100 Output Total 0 / 0 300 / 300 800 / 800 Balance 0 / 0 -270 / -270 -700 / -700 Weight 68 lb 5 oz 68 lb 4.082 oz Microbiology Reports for the Last 24 Hours: Microbiology 04/18/22 18:35 Blood Blood Culture - Preliminary NO GROWTH AFTER 48 HOURS 04/18/22 18:35 Blood Blood Culture - Preliminary NO GROWTH AFTER 48 HOURS Constitutional Constitutional: moderate distress, thin, cachectic and chronically ill appearing *Routine HEENT Exam Head: Present normocephalic Eye: Present EOMI and PERRL ENT: Present mucous membranes moist *Routine Neck Exam Neck: Present supple; Absent lymphadenopathy *Routine Respiratory Exam Respiratory: Present accessory muscle use, prolonged expiratory phase, rhonchi, distant breath sounds and diminished air movement *Routine Cardiovascular Exam Cardiovascular: Present RRR *Routine Abdominal Exam Abdominal: Present soft and normoactive bowel sounds; Absent tenderness Comments: J-tube in place, scaphoid abdomen. *Routine Extremities Exam Extremities: Absent cyanosis, clubbing or edema *Routine Skin Exam Skin: Present warm; Absent rash *Routine Neurological Exam Comments: No focal deficits, patient is awake and eating some food, minimal conversation because of severe dyspnea. Craniall nerves are intact, globally extremely weak Results Data Completed and Pending Labs on day of discharge: Preliminary micro results at discharge 04/18/22 18:35 Blood Culture - Preliminary Blood NO GROWTH AFTER 48 HOURS 04/18/22 18:35 Blood Culture - Preliminary Blood NO GROWTH AFTER 48 HOURS DS: Diagnosis Discharge Diagnosis (1) Acute and supervisor particleboard
--- NOTE | 2022-04-21 09:52 | HMH.PHAINT1 ---
Pharmacy Intervention Comments: Discharge counseling completed at bedside with patient and . The patient is not starting new medications and none of her home medications were discontinued. Ran through home medication list with patient's who verbalized his understanding and has no questions or concerns at this time.
== END 2022-04-21 11:48 | disposition hospice, home (50) | DRG 189 ==
LOC: ER 19:10 → 2ND 20:03
PROVIDERS: Admitting Provider Internal Medicine Adolescent Medicine; Emergency Provider Emergency Medicine; Visit Provider Internal Medicine Adolescent Medicine
DX: J96.20 Acute and chronic respiratory failure, unspecified whether with hypoxia or hypercapnia (principal); E43 Unspecified severe protein-calorie malnutrition; Z68.1 Body mass index [BMI] 19.9 or less, adult; I27.20 Pulmonary hypertension, unspecified; F41.9 Anxiety disorder, unspecified; Z51.5 Encounter for palliative care; J44.9 Chronic obstructive pulmonary disease, unspecified
CPT/HCPCS: 36415; 71045; 80053; 82803; 83605; 85025; 87040; 94640; 94660; 99285; C9803; J0696; U0003; U0005

== ENCOUNTER 2022-08-30 07:27 | Emergency (ER) | payer OTHER, SELFPAY ==
--- NOTE | 2022-08-30 07:32 | PC.NURSE ---
pt to ed via ems as a code in progress. pt is a hospice resident, when ems responded was unsure what pt's code status was. per ems pt was asystole on scene and remained asystole in route to ed. pulse check on ed was asystole. efforts terminated at 0723 by physician.
--- NOTE | 2022-08-30 07:34 | PC.NURSE ---
Suzanna notified of
--- NOTE | 2022-08-30 07:34 | PC.NURSE ---
speaking with Candi from july
--- NOTE | 2022-08-30 07:42 | HMH.EDCPR ---
Discharge Plan Disposition Patient Disposition: Prescriptions Prescriptions: No Action dyrmxl-chsrknii-uaxlefm 40,000-126,000- 168,000 unit capsule,delayed release(DR/EC) 1 cap PO TID Qty: 100 albuterol sulfate 18 GM HFA aerosol inhaler 2 puffs IH Q4HP PRN (Reason: Shortness Of Breath Or Wheezing) loratadine 10 mg tablet 10 mg PO DAILYP PRN (Reason: Allergy symptoms) albuterol sulfate 2.5 MG/NEB solution for nebulization 3 ml IH Q4H aspirin 81 MG tablet,delayed release (DR/EC) 81 mg PO DAILY fluticasone propionate 9.9 ML spray,suspension 1 spray NS DAILY prednisone 20 mg tablet See Rx Instructions .ROUTE .COMPLEX Rx Instructions: Starting on 04/14: Take 40 mg po daily x 5 days, then 30 mg po daily x 5 days, then 20 mg daily thereafter diazepam 10 mg tablet 10 mg PO Q6H PRN (Reason: Anxiety) Label Comments: TAKE ONE TABLET BY MOUTH FOUR TIMES DAILY NEEDED FOR ANXIETY MAY CAUSE DROWSINESS oxycodone 20 mg tablet 20 mg PO Q6H Label Comments: TAKE ONE TABLET BY MOUTH EVERY 6 HOURS MAY also TAKE ONE TABLET ONCE DAILY NEEDED FOR PAIN OR SHORTNESS OF BREATH MAY CAUSE DROWSINESS nystatin 100,000 unit/mL Suspension 5 ml PO QID PRN (Reason: thrush) Rx Instructions: swish and swallow polyethylene glycol 3350 17 gram Powder In Packet 17 g PO DAILY PRN (Reason: Constipation) ondansetron HCl 4 mg Tablet 4 mg PO Q6H PRN (Reason: Nausea) omeprazole 40 mg Capsule,Delayed Release(Dr/Ec) 40 mg PO DAILY acetaminophen 500 mg Tablet 500 mg PO BID bisacodyl 10 mg Suppository 10 mg VT NEEDED PRN (Reason: Constipation) clotrimazole-betamethasone 1-0.05 % Cream 1 applic TOPICAL BID Fleet Enema 19-7 gram/118 mL Enema 118 ml VT DAILY PRN (Reason: Constipation) docusate sodium 100 mg Capsule 100 mg PO BID PRN (Reason: Constipation) mupirocin 2 % Ointment 1 applic TOPICAL BID metoprolol succinate 25 mg Tablet Extended Release 24 Hr 25 mg PO DAILY Stiolto Respimat 2.5-2.5 mcg/actuation Mist 2 puff INHALATION DAILY Metamucil 3.4 gram/5.4 gram Powder 1 tbsp PO DAILY PRN (Reason: Constipation) Rx Instructions: mix into at least 8 oz of water or juice before administering Jevity 1 Humza 0.04 gram-1.06 kcal/mL Liquid See Rx Instructions .ROUTE .COMPLEX Rx Instructions: 50 mL/hr via J-tube furosemide [Lasix] 20 mg tablet 10 mg PO DAILY PRN (Reason: Edema) Referrals Follow up/Referrals: Provider,Referral, MD [Primary Care Provider] - See instructions Clinical Impressions Clinical Impression: Chronic obstructive pulmonary disease (COPD) Discharge ED Provider: Sy (ED)Cj CPR HPI General Stated Complaint: Code in progress Time Seen by Provider: 08/30/22 07:30 Mode of Arrival: EMS Source of Information: EMS and Medical Record Limitations: Altered Mental Status History of Present Illness HPI narrative: pt with copd and hospice care with progressive resp decline Associated injuries: No Related Data Home Medications Medication Instructions Recorded Confirmed albuterol sulfate 90 mcg/actuation 2 puffs IH Q4HP PRN Shortness Of 02/02/18 04/19/22 aerosol inhaler Breath Or Wheezing albuterol sulfate 2.5 mg/3 mL 3 ml IH Q4H COPD 05/18/18 04/19/22 (0.083 %) solution for nebulization aspirin 81 mg tablet,delayed 81 mg PO DAILY HEART HEALTH 06/12/18 04/19/22 release scfkgn-ykyykyhw-paowzmc 1 cap PO TID PANCREATIC ENZYMES 04/15/20 04/19/22 40,000-126,000-168,000 unit #100 caps capsule, delay rel loratadine 10 mg tablet 10 mg PO DAILYP PRN Allergy 04/15/20 04/19/22 symptoms fluticasone propionate 50 1 spray NS DAILY Allergy symptoms 09/09/21 04/19/22 mcg/actuation nasal spray,suspension diazepam 10 mg tablet 10 mg PO Q6H PRN Anxiety 04/18/22 04/19/22 oxycodone 20 mg tablet 20 mg PO Q6H Pain 04/18/22
--- NOTE | 2022-08-30 07:46 | PC.NURSE ---
spoke with who states he will present soon.
--- NOTE | 2022-08-30 08:07 | PC.NURSE ---
[facility] ruled out for any donations
--- NOTE | 2022-08-30 08:14 | PC.NURSE ---
spoke with Candi Brandon with [facility] at 0734, Candi states due to pt current dx and weight, pt is not a candidate for organ or eye donation.
--- NOTE | 2022-08-30 08:33 | PC.NURSE ---
arrived at the bedside
--- NOTE | 2022-08-30 08:34 | PC.NURSE ---
Suzanna in route to ed
--- NOTE | 2022-08-30 08:38 | PC.NURSE ---
called dietary for courtesy cart
--- NOTE | 2022-08-30 08:40 | PC.NURSE ---
hospice nurse at the bedside
--- NOTE | 2022-08-30 09:13 | PC.NURSE ---
hospice Le[facility] at with family and nurse
--- NOTE | 2022-08-30 09:16 | PC.NURSE ---
Suzanna at the bedside
== END 2022-08-30 10:20 | disposition expired ==
PROVIDERS: Emergency Provider Emergency Medicine
DX: J44.9 Chronic obstructive pulmonary disease, unspecified (principal); R41.82 Altered mental status, unspecified
CPT/HCPCS: 92950; 99285; 99291